=== PATIENT | female | born 1935 | race Caucasian/White ===

== ENCOUNTER 2021-03-27 00:48 | Inpatient (IN) ==
[2021-03-27] MEDS ORDERED: methylPREDNISolone 125 MG/2 ML VIAL IV STA (01:20)
[2021-03-27] MEDS ORDERED: ALBUT/IPRATROP 3MG/0.5MG NEB 3 ML VIAL NEB STA (01:20)
[2021-03-27 03:00] LABS: Albumin Globulin Ratio 1.2 (0.9-2); Albumin Level 3.6 gm/dl (3.4-5.0); BUN Creatinine Ratio 19.5 (10-20); Bilirubin,Total 1.1 mg/dl (0.2-1.0); Est GFR (Non-African American) 40.5 ml/min; Globulin 3.1 gm/dl (2.5-4.0); Magnesium 1.9 mg/dl (1.7-2.4); Total Protein 6.7 gm/dl (6.0-8.3); Troponin I 0.03 ng/ml (0-0.04)
[2021-03-27 03:31] LABS: INR 1.2 (0.9-1.1); Partial Thromboplastin Ratio 1.3; Partial Thromboplastin Time 34.1 Seconds (21.0-31.0); Prothrombin Time 11.8 Seconds (9.0-12.0)
[2021-03-27 03:32] LABS: Hemoglobin 14.5 g/dL (12.0-16.0); Mean Corpuscular Hemoglobin 31.8 pg (25-34); Mean Corpuscular Hgb Conc 33.7 g/dL (32-36); Mean Corpuscular Volume 94.3 fL (80-100); Mean Platelet Volume 12.7 fL (7.4-10.4); Platelet Count 103 K/uL (130-400); RDW Coefficient of Variation 14.7 % (11.5-14.5); RDW Standard Deviation 51.4 fL (36.4-46.3); Red Blood Count 4.56 M/uL (4.2-5.4); White Blood Count 7.48 K/uL (4.8-10.8)
[2021-03-27 03:33] LABS: Immature Granulocytes # (auto) 0.02 K/uL (0.00-0.02); Immature Granulocytes % (auto) 0.3 %; Lymphocytes # (auto) 0.62 K/uL (1.2-3.4); Lymphocytes % (auto) 8.3 %; Monocytes # (auto) 0.62 K/uL (0.11-0.59); Monocytes % (auto) 8.3 %; Neutrophils # (auto) 6.22 K/uL (1.4-6.5); Neutrophils % (auto) 83.1 %; Platelet Estimate Decreased (Normal); RBC Morphology Unremarkable
[2021-03-27] MEDS ORDERED: MAGNESIUM SULFATE / D5W 1 GM/100 ML BAG IV ONE (04:24)
[2021-03-27] MEDS ORDERED: DOXYCYCLINE HYCLATE 100 MG in DEXTROSE 5% 100 ML IV STA (04:52)
[2021-03-27] MEDS ORDERED: SODIUM CHLORIDE 0.9% 1000ML 1,000 ML IV ONE (04:52)
--- NOTE | 2021-03-27 05:05 | History & Physical Report ---
Date of Service March 27, 2021 Assessment & Plan (1) Encephalopathy: Plan: Delirium Possible undiagnosed dementia Multifactorial : Hypoxemic respiratory failure secondary to severe COVID-19 pneumonia with superimposed bacterial infection ARF Rule out UTI Thrombocytopenia, unknown duration Ongoing tobacco abuse Medical telemetry Supplemental O2 Doxycycline for superimposed bacterial infection, nebs as needed Decadron and Remdesivir for severe COVID-19 pneumonia. (Patient daughter would like to confer with patient's first regarding Remdesivir therapy.) Pulmonary consult if without improvement. Check UA, monitor creatinine response to IVF Delirium precautions PT OT eval DVT prophylaxis SCDs RE thrombocytopenia DNR as per patient's prior wishes as per daughter (Ms. Charu Hutton) She requests updates from providers thru [id number]. Text document was generated using Cyl[employer] voice recognition software. It may contain grammatical or spelling errors. Kindly contact undersigned for clarification of any documentation item in question. History of Present Illness Chief Complaint: Increased confusion, shortness of breath as per records Primary Care Provider: NO PCP History obtained from patient, family, and records. Patient is a fair historian. Medical history significant for ongoing tobacco abuse. Patient mentation has been off since September 2020 as per daughter. Patient family suspecting beginning dementia. The last few days, patient more confused than usual. Worsening cough symptoms productive of junky sputum as per patient. Patient denies chest pain, shortness of breath but patient noted to have labored respiration by daughter. Patient weaker than usual as per family. Patient unstable on her feet. Daughter cannot catch up with her. Patient with urinary frequency symptoms without abdominal pain as per daughter. Recent sick COVID-19 contacts at home. Patient has not received COVID-19 vaccination. Has not seen a primary care doctor in decades. O2 sats 80s on room air upon arrival at the ER Solu-Medrol and neb treatment given at the ER. 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 Allergies Allergy/AdvReac Type Severity Reaction Status Date / Time No Known Allergies Allergy Verified 03/27/21 01:15 Home Medications Medication Instructions Recorded Confirmed Type No Known Home Medications 03/27/21 03/27/21 History Past Med/Surg History Medical History (Updated 03/27/21 @ 06:02 by Aramis Gibbs MD) COPD (chronic obstructive pulmonary disease) Tobacco dependence Social History (Updated 03/27/21 @ 05:28 by Makenna Delgadillo MD) Smoking Status: Former smoker packs per day: 2; Current Living Situation: Family Feels Safe at Home: Yes Review of Systems Review of Systems: Could not be reliably obtained secondary to some confusion Physical Exam Physical Exam: GENERAL: Comfortable, oriented to month, slightly hard of hearing, no respiratory distress SKIN: Normal color, warm HEENT: [place] palpebral conjunctivae, no ptosis, dry buccal mucosa, nasal cannula in place NECK : Supple, no tenderness CHEST : Decreased breath sounds, occasional expiratory wheezes, no tenderness HEART : RRR, no obvious murmurs ABDOMEN: no distention, nontender EXTREMITIES : No LE swelling/tenderness, no other conspicuous deformities noted NEUROLOGIC : Coherent, oriented to month, no facial asymmetry, slightly hard of hearing, gait and stance not assessed Results & Data Results & Data ([facility]) Vital Signs (Past 12 Hours) Vital Signs Temp Pulse Pulse Resp BP BP Pulse Ox 03/27/21 03:00 82 18 127/54 L 93 03/27/21 01:39 84 18 93 03/27/21 01:12 93 03/27/21 01:09 88 L 03/27/21 01:03 37.1 C 87 24 125/65 88 L Laboratory Results Laboratory Results WBC 7.48 K/uL (4.8-10.8) 03/27/21 01:40 RBC 4.56 M/uL (4.2-5.4) 03/27/21 01:40 Hgb 14.5 g/dL (12.0-16.0) 03/27/21 01:40 Hct 43.0 % (37-47) 03/27/21 01:40 MCV 94.3 fL (80-100) 03/27/21 01:40 MCH 31.8 pg (25-34) 03/27/21 01:40 MCHC 33.7 g/dL (32-36) 03/27/21 01:40 RDW Std Deviation 51.4 fL (36.4-46.3) H 03/27/21 01:40 RDW Coeff of Selena 14.7 % (11.5-14.5) H 03/27/21 01:40 Plt Count 103 K/uL (130-400) L 03/27/21 01:40 MPV 12.7 fL (7.4-10.4) H 03/27/21 01:40 Immature Gran % (Auto) 0.3 % 03/27/21 01:40 Neut % (Auto) 83.1 % 03/27/21 01:40 Lymph % (Auto) 8.3 % 03/27/21 01:40 [place] % (Auto) 8.3 % 03/27/21 01:40 Eos % (Auto) 0.0 % 03/27/21 01:40 Baso % (Auto) 0.0 % 03/27/21 01:40 Neut # (Auto) 6.22 K/uL (1.4-6.5) 03/27/21 01:40 Lymph # (Auto) 0.62 K/uL (1.2-3.4) L 03/27/21 01:40 [place] # (Auto) 0.62 K/uL (0.11-0.59) H 03/27/21 01:40 Eos # (Auto) 0.00 K/uL (0-0.5) 03/27/21 01:40 Baso # (Auto) 0.00 K/uL (0-0.2) 03/27/21 01:40 Immature Gran # (Auto) 0.02 K/uL (0.00-0.02) 03/27/21 01:40 Platelet Estimate Decreased (Normal) L 03/27/21 01:40 RBC Morphology Unremarkable 03/27/21 01:40 PT 11.8 Seconds (9.0-12.0) 03/27/21 01:50 INR 1.2 (0.9-1.1) H 03/27/21 01:50 APTT 34.1 Seconds (21.0-31.0) H 03/27/21 01:50 PTT Ratio 1.3 03/27/21 01:50 Sodium 134 mmol/L (136-145) L 03/27/21 01:40 Potassium 4.0 mmol/L (3.5-5.1) 03/27/21 01:40 Chloride 98 mmol/L (98-107) 03/27/21 01:40 Carbon Dioxide 26 mmol/L (21-32) 03/27/21 01:40 Anion Gap 10 (3-11) 03/27/21 01:40 BUN 24 mg/dl (6-23) H 03/27/21 01:40 Creatinine 1.23 mg/dl (0.6-1.2) H 03/27/21 01:40 Est Cr Clr Drug Dosing 23.0 ml/min 03/27/21 01:40 Est GFR ( Amer) 47.0 ml/min 03/27/21 01:40 Est GFR (Non-Af Amer) 40.5 ml/min 03/27/21 01:40 BUN/Creatinine Ratio 19.5 (10-20) 03/27/21 01:40 Glucose 105 mg/dl (70-99(Fasting)) H 03/27/21 01:40 Lactate 1.9 mmol/L (0.4-2.0) 03/27/21 03:30 Calcium 9.0 mg/dl (8.5-10.1) 03/27/21 01:40 Magnesium 1.9 mg/dl (1.7-2.4) 03/27/21 01:40 Total Bilirubin 1.1 mg/dl (0.2-1.0) H 03/27/21 01:40 AST 38 U/L (13-39) 03/27/21 01:40 ALT 14 U/L (7-52) 03/27/21 01:40 Alkaline Phosphatase 53 U/L (34-104) 03/27/21 01:40 Troponin I 0.03 ng/ml (0-0.04) 03/27/21 01:40 Total Protein 6.7 gm/dl (6.0-8.3) 03/27/21 01:40 Albumin 3.6 gm/dl (3.4-5.0) 03/27/21 01:40 Globulin 3.1 gm/dl (2.5-4.0) 03/27/21 01:40 Albumin/Globulin Ratio 1.2 (0.9-2) 03/27/21 01:40 Diagnostic Findings Chest x-ray as per my interpretation cardiomegaly, atelectasis CT head pending EKG as per my interpretation : Rate 85, NSR, normal axis, PVCs
--- NOTE | 2021-03-27 05:31 | Emergency Department Note ---
Impression & Plan Hypoxia, COPD (chronic obstructive pulmonary disease), Tobacco dependence ED Provider Note CHIEF COMPLAINT: Weakness, shortness of breath, not eating HISTORY OF PRESENT ILLNESS: This 85-year-old female patient presents to the emergency department with complaints of weakness, shortness of breath and decreased appetite. states she is not Covid vaccinated and he is concerned that she may have lung cancer as she smokes quite a bit. Patient does not see a doctor and never really has. She is not had a fever, vomiting or diarrhea. She does not seem to be confused necessarily but is not responding as she normally would. Family has convinced the patient to come to the hospital th is morning for a "checkup." Patient states she does not know why she is here. Patient does not wear home oxygen. REVIEW OF SYSTEMS: Unable to perform a review of systems secondary to the patient's mental status, history obtained per . ALLERGIES: see below MEDICATIONS: see below PMH: see below SOCIAL HISTORY: see below DDx: Infection, dehydration, metabolic abnormality, hypo/hyperglycemia, electrolyte disturbance, anemia, hypoxia, cardiac sources, intracerebral event, toxicologic, neurologic, as well as other pathologies. PHYSICAL EXAM: Vital signs reviewed. General: Chronically ill-appearing 85-year-old female in no significant distress. HEENT: No scleral icterus, PERRLA, neck supple. Atraumatic. Cardiovascular: Regular rate and rhythm, no extra sounds. Pulmonary: Coarse breath sounds with crackles at the bases right greater than left to auscultation bilaterally, normal work of breathing. On 2 L nasal cannula oxygen Abdomen: Soft, nontender, nondistended, positive bowel sounds. Musculoskeletal: Atraumatic, no peripheral edema. Neurologic: Patient awake alert and follows commands but does not answer complicated questions appropriately. Patient gives deflective answers. Speech is clear Skin: Warm, dry, no rash EMERGENCY DEPARTMENT COURSE/MDM: This patient was evaluated and appeared to be in no significant distress. IV access was obtained and laboratory work was drawn. The patient was placed on the chemical radiation technician and noted to be in normal sinus rhythm. She was placed on nasal cannula oxygen due to room air hypoxia. She was given a DuoNeb treatment and 60 mg of IV Solu-Medrol. Chest x-ray is consistent with COPD with no focal infiltrate noted to my exam. EKG reveals nonspecific ST changes but no ST elevation [place]. Patient has tested positive for COVID-19. Her reiterates that she does not see a physician and has declined in the past. The patient is currently willing to stay in the hospital. I do believe her course will likely become more complex as she is unvaccinated and a heavy smoker. Patient and family are aware of the plan and agreed. Dr. Henry was made aware of the patient's case and will evaluate for further m anagement. MONITORING: An order for cardiac monitoring was placed and the patient is noted to be in a sinus rhythm at 82 beats per minute. RADIOLOGY: COPD, no focal infiltrate EKG: Sinus rhythm with frequent PVCs at 85 bpm. Normal axis, QTC is 430, normal ST segments. No previous for comparison. DISPOSITION: Admission Past Med/Surg History Medical History (Updated 03/27/21 @ 06:02 by Aramis Gibbs MD) COPD (chronic obstructive pulmonary disease) Tobacco dependence Social History (Updated 03/27/21 @ 05:28 by Makenna Delgadillo MD) Smoking Status: Former smoker packs per day: 2; Current Living Situation: Family Feels Safe at Home: Yes Allergies Allergies Allergy/AdvReac Type Severity Reaction Status Date / Time No Known Allergies Allergy Verified 03/27/21 01:15 Home Meds Home Medications Medication Instructions Recorded Confirmed No Known Home Medications 03/27/21 03/27/21 Results & Data (ED) Vital Signs Vital Signs - 24 hr 03/27/21 01:03 03/27/21 01:09 03/27/21 01:12 Temperature 37.1 C Temperature Source Oral Pulse Rate 87 Respiratory Rate 24 Respiratory Effort / Characteristics Respiratory Depth Shallow Respiratory Pattern Blood Pressure 125/65 Blood Pressure Mean 85 Pulse Oximetry 88 L 88 L 93 Oxygen Delivery Method Room Air Room Air Nasal Cannula Oxygen Flow Rate 2 Sepsis Recent Fever Within 48 Hours No Sepsis New/Unexplained Change in Mental Status No Sepsis Action Taken by Nursing No Action Required Oxygen Flow Rate - Titration 2 Pulse Oximetry Post Tiitration 93 03/27/21 01:39 Temperature Temperature Source Pulse Rate 84 Respiratory Rate 18 Respiratory Effort / Characteristics Non-Labored Spontaneous Respiratory Depth Normal Respiratory Pattern Regular Blood Pressure Blood Pressure Mean Pulse Oximetry 93 Oxygen Delivery Method Nasal Cannula Oxygen Flow Rate 2 Sepsis Recent Fever Within 48 Hours Sepsis New/Unexplained Change in Mental Status Sepsis Action Taken by Nursing Oxygen Flow Rate - Titration Pulse Oximetry Post Tiitration Home Medications Current Medication List: was personally reviewed by me Laboratory Data Attestation: I reviewed the patient's lab results. Result diagrams: 03/27/21 01:40 03/27/21 01:40 Lab Results 03/27/21 03/27/21 03/27/21 Range/Units 01:40 01:40 01:42 WBC 7.48 (4.8-10.8) K/uL RBC 4.56 (4.2-5.4) M/uL Hgb 14.5 (12.0-16.0) g/dL Hct 43.0 (37-47) % MCV 94.3 (80-100) fL MCH 31.8 (25-34) pg MCHC 33.7 (32-36) g/dL RDW Std Deviation 51.4 H (36.4-46.3) fL RDW Coeff of Selena 14.7 H (11.5-14.5) % Plt Count 103 L (130-400) K/uL MPV 12.7 H (7.4-10.4) fL Immature Gran % (Auto) 0.3 % Neut % (Auto) 83.1 % Lymph % (Auto) 8.3 % [place] % (Auto) 8.3 % Eos % (Auto) 0.0 % Baso % (Auto) 0.0 % Neut # (Auto) 6.22 (1.4-6.5) K/uL Lymph # (Auto) 0.62 L (1.2-3.4) K/uL [place] # (Auto) 0.62 H (0.11-0.59) K/uL Eos # (Auto) 0.00 (0-0.5) K/uL Baso # (Auto) 0.00 (0-0.2) K/uL Immature Gran # (Auto) 0.02 (0.00-0.02) K/uL Platelet Estimate Decreased L (Normal) RBC Morphology Unremarkable PT (9.0-12.0) Seconds INR (0.9-1.1) APTT (21.0-31.0) Seconds PTT Ratio Sodium 134 L (136-145) mmol/L Potassium 4.0 (3.5-5.1) mmol/L Chloride 98 (98-107) mmol/L Carbon Dioxide 26 (21-32) mmol/L Anion Gap 10 (3-11) BUN 24 H (6-23) mg/dl Creatinine 1.23 H (0.6-1.2) mg/dl Est Cr Clr Drug Dosing 23.0 ml/min Est GFR ( Amer) 47.0 ml/min Est GFR (Non-Af Amer) 40.5 ml/min BUN/Creatinine Ratio 19.5 (10-20) Glucose 105 H (70-99(Fasting)) mg/dl Calcium 9.0 (8.5-10.1) mg/dl Magnesium 1.9 (1.7-2.4) mg/dl Total Bilirubin 1.1 H (0.2-1.0) mg/dl AST 38 (13-39) U/L ALT 14 (7-52) U/L Alkaline Phosphatase 53 (34-104) U/L Troponin I 0.03 (0-0.04) ng/ml Total Protein 6.7 (6.0-8.3) gm/dl Albumin 3.6 (3.4-5.0) gm/dl Globulin 3.1 (2.5-4.0) gm/dl Albumin/Globulin Ratio 1.2 (0.9-2) TSH (0.300-4.500) uIu/ml SARS-CoV-2, RNA, NAAT POSITIVE A* (NEGATIVE) 03/27/21 03/27/21 Range/Units 01:50 01:56 WBC (4.8-10.8) K/uL RBC (4.2-5.4) M/uL Hgb (12.0-16.0) g/dL Hct (37-47) % MCV (80-100) fL MCH (25-34) pg MCHC (32-36) g/dL RDW Std Deviation (36.4-46.3) fL RDW Coeff of Selena (11.5-14.5) % Plt Count (130-400) K/uL MPV (7.4-10.4) fL Immature Gran % (Auto) % Neut % (Auto) % Lymph % (Auto) % [place] % (Auto) % Eos % (Auto) % Baso % (Auto) % Neut # (Auto) (1.4-6.5) K/uL Lymph # (Auto) (1.2-3.4) K/uL [place] # (Auto) (0.11-0.59) K/uL Eos # (Auto) (0-0.5) K/uL Baso # (Auto) (0-0.2) K/uL Immature Gran # (Auto) (0.00-0.02) K/uL Platelet Estimate (Normal) RBC Morphology PT 11.8 (9.0-12.0) Seconds INR 1.2 H (0.9-1.1) APTT 34.1 H (21.0-31.0) Seconds PTT Ratio 1.3 Sodium (136-145) mmol/L Potassium (3.5-5.1) mmol/L Chloride (98-107) mmol/L Carbon Dioxide (21-32) mmol/L Anion Gap (3-11) BUN (6-23) mg/dl Creatinine (0.6-1.2) mg/dl Est Cr Clr Drug Dosing ml/min Est GFR ( Amer) ml/min Est GFR (Non-Af Amer) ml/min BUN/Creatinine Ratio (10-20) Glucose (70-99(Fasting)) mg/dl Calcium (8.5-10.1) mg/dl Magnesium (1.7-2.4) mg/dl Total Bilirubin (0.2-1.0) mg/dl AST (13-39) U/L ALT (7-52) U/L Alkaline Phosphatase (34-104) U/L Troponin I (0-0.04) ng/ml Total Protein (6.0-8.3) gm/dl Albumin (3.4-5.0) gm/dl Globulin (2.5-4.0) gm/dl Albumin/Globulin Ratio (0.9-2) TSH 2.762 (0.300-4.500) uIu/ml SARS-CoV-2, RNA, NAAT (NEGATIVE) Administered Medications Sodium Chloride (Nss 1000ml) 1,000 mls @ 80 mls/hr IV .[id number] ONE Stop: 03/27/21 17:21 Last Admin: 03/27/21 05:56 Dose: 80 mls/hr Documented by: [id number] Discontinued Medications Albuterol (Albut/Ipratrop 3mg/0.5mg Neb 3 Ml Vial) 3 ml NEB NOW STA; Protocol Stop: 03/27/21 01:21 Last Admin: 03/27/21 01:43 Dose: 3 ml Documented by: [id number] Magnesium Sulfate/Dextrose (Magnesium Sulfate / D5w) 1 gm in 100 mls @ 50 mls/hr IV ONE ONE Stop: 03/27/21 06:23 Last Admin: 03/27/21 05:56 Dose: 50 mls/hr Documented by: [id number] Doxycycline Hyclate 100 mg/ (Dextrose) 110 mls @ 50 mls/hr IV NOW STA Stop: 03/27/21 07:03 Last Admin: 03/27/21 07:25 Dose: 50 mls/hr Documented by: [id number] Methylprednisolone (Methylprednisolone 125 Mg/2 Ml Vial) 60 mg IV NOW STA Stop: 03/27/21 01:21 Last Admin: 03/27/21 01:43 Dose: 60 mg Documented by: [id number] Imaging Data My Impression: Test x-ray to my interpretation reveals COPD chronic changes, no focal lung consolidation or failure. Radiologist's Impression: Chest X-Ray 03/27/21 01:04 XR chest 1V portable HISTORY: 85 years-old Female Dyspnea acute shortness of breath COMPARISON: None TECHNIQUE: Portable AP view of the chest FINDINGS: The heart is mildly enlarged. Mitral annular calcifications. Reticular interstitial opacities with ill-defined bilateral airspace opacities, most pronounced in the left lung base and left midlung. 9 mm nodular density of the lateral right midlung. No pneumothorax or large pleural effusion. Blunting of the costophrenic angles may be secondary to atelectasis versus trace effusions. Degenerative changes of the shoulders and spine. IMPRESSION: 1. Reticular interstitial opacities with ill-defined airspace densities, most pronounced in the left lung base and left midlung. Findings are suspicious for an infectious or inflammatory pneumonitis. 2. Cardiomegaly. 3. 9 mm nodular density of the lateral right midlung. Attention at follow-up recommended to exclude a pulmonary nodule. ACT 112: Negative or not required by law. The above report was generated using voice recognition software. It may contain grammatical, syntax or spelling errors. Electronically signed by: Victoriano Black M.D. 03/27/2021 6:36 AM Blood Pressure Blood Pressure Findings: Normal blood pressure Blood Pressure Disposition: did not require urgent referral Discharge Plan Visit Data Chief Complaint: Shortness of Breath/Dyspnea Stated Complaint: SOB,FATIGUE,CONFUSSION ED Provider: Makenna Delgadillo Discharge Problem: Hypoxia, COPD (chronic obstructive pulmonary disease), Tobacco dependence Patient Disposition: Admitted As Inpatient Condition: Good Discharge Problem: COPD (chronic obstructive pulmonary disease) Qualifiers: COPD type: chronic bronchitis Chronic bronchitis type: simple Qualified Code( s): J41.0 - Simple chronic bronchitis
--- NOTE | 2021-03-27 06:37 | XRay Report ---
XR chest 1V portable HISTORY: 85 years-old Female Dyspnea acute shortness of breath COMPARISON: None TECHNIQUE: Portable AP view of the chest FINDINGS: The heart is mildly enlarged. Mitral annular calcifications. Reticular interstitial opacities with il l-defined bilateral airspace opacities, most pronounced in the left lung base and left midlung. 9 mm nodular density of the lateral right midlung. No pneumothorax or large pleural effusion. Blunting of the costophrenic angles may be secondary to atelectasis versus trace effusions. Degenerative changes of the shoulders and spine. IMPRESSION: 1. Reticular interstitial opacities with ill-defined airspace densities, most pronounced in the left lung base and left midlung. Findings are suspicious for an infectious or inflammatory pneumonitis. 2. Cardiomegaly. 3. 9 mm nodular density of the lateral right midlung. Attention at follow-up recommended to exclude a pulmonary nodule. ACT 112: Negative or not required by law. The above report was generated using voice recognition software. It may contain grammatical, syntax o r spelling errors. Electronically signed by: Victoriano Black M.D. 03/27/2021 6:36 AM
[2021-03-27] MEDS ORDERED: ACETAMINOPHEN 325 MG TAB PO PRN (08:14)
[2021-03-27] MEDS ORDERED: PROMETHAZINE HCL 6.25 MG in SODIUM CHLORIDE 0.9% 50 ML IV PRN (08:14)
[2021-03-27] MEDS ORDERED: LEVALBUTEROL 1.25MG/0.5ML NEB INH PRN (08:14)
[2021-03-27] MEDS ORDERED: IPRATROPIUM BROMIDE NEB SOLN 0.02% 2.5 ML VIAL INH PRN (08:14)
[2021-03-27] MEDS ORDERED: HALOPERIDOL LACTATE 5 MG/ML 1 ML VIAL IM PRN (08:14)
[2021-03-27] MEDS ORDERED: XOPENEX/ATROVENT 1.25mg/0.5MG NEB COMBO NEB PRN (08:14)
--- NOTE | 2021-03-27 08:23 | CT Scan Report ---
CT head/brain wo con CLINICAL HISTORY: 85 years-old Female with ams. Acutely altered mental status with memory loss and w eakness TECHNIQUE: Multiple axial CT images of the head were obtained without contrast. A dose lowering tech nique was utilized adhering to the principles of ALARA. CT DOSE: 537.48 mGy.cm COMPARISON: None. FINDINGS: No acute intracranial hemorrhage, midline shift, intracranial mass, hydrocephalus, territorial ischem ia or abnormal extra-axial collection. Age-related involutional changes. Extensive and confluent whit e matter hypodensities. Cerebral vascular calcifications. The calvarium is intact. Mild mucosal thickening of the ethmoid air cells. The mastoid air cells are clear. Unremarkable orbits and soft tissues. IMPRESSION: 1. No acute intracranial abnormality. 2. Age-related involutional changes with extensive and confluent white matter hypodensities suggestiv e of advanced chronic microvascular ischemic disease. ACT 112: Negative or not required by law. The above report was generated using voice recognition software. It may contain grammatical, syntax o r spelling errors. Electronically signed by: Victoriano Black M.D. 03/27/2021 8:22 AM
--- NOTE | 2021-03-27 12:14 | Electrocardiogram Report ---
Test Reason : Blood Pressure : / mmHG Vent. Rate : 085 BPM Atrial Rate : 085 BPM P-R Int : 116 ms QRS Dur : 072 ms QT Int : 362 ms P-R-T Axes : 092 006 029 degrees QTc Int : 430 ms Poor data quality, interpretation may be adversely affected Sinus rhythm with frequent Premature ventricular complexes Otherwise normal ECG No previous ECGs available Confirmed by Son Olea ([id number]) on 03/27/2021 12:14:40 PM Referred By: REFERRED SELF Confirmed By:John Olea
[2021-03-27 12:46] LABS: Appearance Urine Clear (Clear); Bacteria Urine Automated 1+ (Negative); Bilirubin Urine Negative (Negative); Blood Urine Trace (Negative); Color Urine Yellow; Epithelial Cell Urine Auto >30 /lpf (0-5); Glucose Urine UA Negative (Negative); Ketones Urine Negative (Negative); Leukocyte Esterase Urine Negative (Negative); Nitrite Urine Positive (Negative); Protein Urine 1+ (Negative); RBC Urine Automated 0-4 /hpf (0-4); Specific Gravity Urine 1.016 (1.000-1.030); Urobilinogen Urine Negative (Negative)
[2021-03-27] MEDS: BENZONATATE 100 MG CAPSULE PO SCH ×2 (13:55→20:07)
--- NOTE | 2021-03-27 16:52 | Hospitalist Progress Note ---
Date of Service March 27, 2021 Assessment & Plan (1) Encephalopathy: Plan: Acute metabolic encephalopathy Possible undiagnosed dementia Delirium in setting of acute infection - CT Head:No acute intracranial abnormality. 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 Reorient frequently Acute hypoxic respiratory failure COVID-19 pneumonia --CXR:Reticular interstitial opacities with ill-defined airspace densities, most pronounced in the left lung base and left midlung. Findings are suspicious for an infectious or inflammatory pneumonitis. Cardiomegaly. 3. 9 mm nodular density of the lateral right midlung. Attention at follow-up recommended to exclude a pulmonary nodule. --Continue dexamethasone Patient/Patient's family requested no Remdesivir given decreased creatinine clearance (Discussed risks and benefits) Doxycycline for possible bacterial infection Check CRP, procalcitonin tomorrow Continue supplemental oxygen as needed Monitor volume status Encouraged to prone Pulmonary hygiene with incentive spirometry, flutter valve Abnormal urinalysis Rule out UTI Empirically started on Rocephin Urine culture pending Possible acute kidney injury Unclear baseline creatinine Received gentle IV fluids Monitor renal function Thrombocytopenia Monitor cbc DVT Px: Heparin SQ Monitor thrombocytopenia Code Status DNR/DNI Admission and Anticipated Discharge Date Admission Date: March 27, 2021 Subjective Patient is seen and examined at bedside Poor appetite today Reports minimal cough Currently on 2 L supplemental oxygen Poor historian, significant hearing impairment Offers no other complaints Review of Systems Review of Systems: All systems reviewed & are unremarkable except as noted in Subjective Physical Exam Physical Exam: Physical Exam: Vitals signs as noted above General Appearance:Thin, frail, no apparent distress Head: normocephalic, Atraumatic Eyes: normal inspection, EOMI Neck: supple, Trachea midline Respiratory/Chest: Decreased breath sounds, Basal Crackles Cardiovascular: S1, S2, No murmur Abdomen/GI:Soft, Non tender, Bowel sounds present Extremities/Musculoskeletal:normal inspection, no edema Neurologic/Psych:Alert, awake, oriented to person, grossly no focal neurological deficits, +hearing impairment Skin: normal color, warm Results & Data Results & Data ([facility]) Vital Signs (Past 12 Hours) Vital Signs Pulse Resp BP Pulse Ox 03/27/21 12:00 70 18 113/56 L 94 03/27/21 08:00 80 26 H 121/69 93 03/27/21 07:00 87 18 122/60 94 03/27/21 05:00 84 18 121/66 93 Laboratory Results Short CBC 03/27/21 Range/Units 01:40 WBC 7.48 (4.8-10.8) K/uL Hgb 14.5 (12.0-16.0) g/dL Hct 43.0 (37-47) % Plt Count 103 L (130-400) K/uL BMP 03/27/21 01:40 Sodium 134 L Potassium 4.0 Chloride 98 Carbon Dioxide 26 BUN 24 H Creatinine 1.23 H Glucose 105 H Calcium 9.0 Cardiac Enzymes 03/27/21 Range/Units 01:40 Troponin I 0.03 (0-0.04) ng/ml Liver Function 03/27/21 Range/Units 01:40 Total Bilirubin 1.1 H (0.2-1.0) mg/dl AST 38 (13-39) U/L ALT 14 (7-52) U/L Alkaline Phosphatase 53 (34-104) U/L Albumin 3.6 (3.4-5.0) gm/dl Urine 03/27/21 Range/Units 12:31 Urine Color Yellow Urine Appearance Clear (Clear) Urine pH 5.0 (4.5-7.5) Ur Specific Concrete 1.016 (1.000-1.030) Urine Protein 1+ H (Negative) Urine Glucose (UA) Negative (Negative)
[2021-03-27] MEDS: cefTRIAXone SODIUM 1,000 MG in DEXTROSE 5% 50 ML IV SCH (18:21)
[2021-03-27] MEDS: DOXYCYCLINE HYCLATE 100 MG CAP PO SCH (20:08)
[2021-03-27] MEDS: HEPARIN SOD 5,000 UNIT/0.5 ML VIAL SQ SCH (20:08)
[2021-03-28 08:03] LABS: Hematocrit (blood only) 40.7 % (37-47); Hemoglobin 13.4 g/dL (12.0-16.0); Immature Granulocytes # (auto) 0.03 K/uL (0.00-0.02); Immature Granulocytes % (auto) 0.3 %; Lymphocytes # (auto) 0.51 K/uL (1.2-3.4); Mean Corpuscular Hemoglobin 30.9 pg (25-34); Mean Corpuscular Hgb Conc 32.9 g/dL (32-36); Mean Platelet Volume 13.1 fL (7.4-10.4); Monocytes # (auto) 0.74 K/uL (0.11-0.59); Monocytes % (auto) 7.2 %; Neutrophils # (auto) 8.96 K/uL (1.4-6.5); Neutrophils % (auto) 87.5 %; Platelet Count 152 K/uL (130-400); RDW Coefficient of Variation 14.9 % (11.5-14.5); RDW Standard Deviation 52.1 fL (36.4-46.3); Red Blood Count 4.33 M/uL (4.2-5.4); White Blood Count 10.24 K/uL (4.8-10.8)
[2021-03-28 08:20] LABS: BUN Creatinine Ratio 28.6 (10-20); C Reactive Protein 16.42 mg/dl (0-0.5); Calcium 8.7 mg/dl (8.5-10.1); Creatinine Clr Calc Pharmacy 29.7 ml/min; Est GFR (African American) 61.8 ml/min; Est GFR (Non-African American) 53.3 ml/min
[2021-03-28] MEDS: dexAMETHasone 6 MG in SYRINGE 0 ML IV SCH (10:05)
[2021-03-28] MEDS: BENZONATATE 100 MG CAPSULE PO SCH ×3 (10:06→20:34)
[2021-03-28] MEDS: DOXYCYCLINE HYCLATE 100 MG CAP PO SCH ×2 (10:07→20:28)
[2021-03-28] MEDS: HEPARIN SOD 5,000 UNIT/0.5 ML VIAL SQ SCH ×2 (10:07→20:31)
--- NOTE | 2021-03-28 16:03 | Hospitalist Progress Note ---
Date of Service March 28, 2021 Assessment & Plan (1) Encephalopathy: Plan: Acute metabolic encephalopathy Possible undiagnosed dementia Delirium in setting of acute infection - CT Head:No acute intracranial abnormality. 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 Reorient frequently Mental status seem to be slowly improving Acute hypoxic respiratory failure COVID-19 pneumonia --CXR:Reticular interstitial opacities with ill-defined airspace densities, most pronounced in the left lung base and left midlung. Findings are suspicious for an infectious or inflammatory pneumonitis. Cardiomegaly. 3. 9 mm nodular density of the lateral right midlung. Attention at follow-up recommended to exclude a pulmonary nodule. --Continue dexamethasone Patient/Patient's family requested no Remdesivir given decreased creatinine clearance (Discussed risks and benefits) On Rocephin, Doxycycline for possible bacterial infection CRP 16.4 Procalcitonin 2.6 Blood Cx: Negative to date Continue supplemental oxygen as needed Monitor volume status Encouraged to prone Pulmonary hygiene with incentive spirometry, flutter valve Continue on 3 L supplemental oxygen Abnormal urinalysis Rule out UTI On Rocephin empirically Urine culture pending Possible acute kidney injury Unclear baseline creatinine Received gentle IV fluids Monitor renal function Thrombocytopenia Platelet count improved Monitor CBC DVT Px: Heparin SQ Code Status DNR/DNI Admission and Anticipated Discharge Date Admission Date: March 27, 2021 Subjective Patient is seen and examined at bedside Sitting in chair during my encounter States feeling better today No significant cough Currently on 3 L supplemental oxygen Denies any chest pain, shortness of breath, dizziness, nausea, abdominal pain Review of Systems Review of Systems: All systems reviewed & are unremarkable except as noted in Subjective Physical Exam Physical Exam: Physical Exam: Vitals signs as noted above General Appearance:Thin, frail, no apparent distress Head: normocephalic, Atraumatic Eyes: normal inspection, EOMI Neck: supple, Trachea midline Respiratory/Chest: Decreased breath sounds, B/L scattered Crackles Cardiovascular: S1, S2, No murmur Abdomen/GI:Soft, Non tender, Bowel sounds present Extremities/Musculoskeletal:normal inspection, no edema Neurologic/Psych:Alert, awake, oriented to person, grossly no focal neurological deficits, +hearing impairment Skin: normal color, warm Results & Data Results & Data ([facility]) Vital Signs (Past 12 Hours) Vital Signs Temp Pulse Resp BP BP Pulse Ox Pulse Ox 01/28/22 15:46 36.6 C 68 20 104/60 94 03/28/21 13:35 93 03/28/21 13:17 36.7 C 74 20 109/60 96 03/28/21 13:10 94 03/28/21 08:37 36.7 C 79 20 102/58 L 98 Pulse Ox Pulse Ox 03/28/21 15:46 03/28/21 13:35 03/28/21 13:17 03/28/21 13:10 94 91 03/28/21 08:37 Laboratory Results Short CBC 03/28/21 Range/Units 05:44 WBC 10.24 (4.8-10.8) K/uL Hgb 13.4 (12.0-16.0) g/dL Hct 40.7 (37-47) % Plt Count 152 (130-400) K/uL BMP 03/28/21 05:44 Sodium 136 Potassium 4.0 Chloride 102 Carbon Dioxide 25 BUN 28 H Creatinine 0.98 Glucose 118 H Calcium 8.7
[2021-03-28] MEDS: cefTRIAXone SODIUM 1,000 MG in DEXTROSE 5% 50 ML IV SCH (16:28)
[2021-03-29 08:28] LABS: BUN Creatinine Ratio 38.6 (10-20); Calcium 8.5 mg/dl (8.5-10.1); Est GFR (African American) 70.4 ml/min; Est GFR (Non-African American) 60.8 ml/min; Potassium 4.2 mmol/L (3.5-5.1)
[2021-03-29] MEDS: DOXYCYCLINE HYCLATE 100 MG CAP PO SCH ×2 (09:29→20:16)
[2021-03-29] MEDS: HEPARIN SOD 5,000 UNIT/0.5 ML VIAL SQ SCH ×2 (09:29→20:18)
[2021-03-29] MEDS: dexAMETHasone 6 MG in SYRINGE 0 ML IV SCH (09:30)
[2021-03-29] MEDS: BENZONATATE 100 MG CAPSULE PO SCH ×3 (12:04→20:15)
--- NOTE | 2021-03-29 14:43 | Hospitalist Progress Note ---
Date of Service March 29, 2021 Assessment & Plan (1) Encephalopathy: Plan: Acute metabolic encephalopathy Possible undiagnosed dementia Delirium in setting of acute infection - CT Head:No acute intracranial abnormality. 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 Reorient frequently Mental status seem to be back to baseline Acute hypoxic respiratory failure COVID-19 pneumonia --CXR:Reticular interstitial opacities with ill-defined airspace densities, most pronounced in the left lung base and left midlung. Findings are suspicious for an infectious or inflammatory pneumonitis. Cardiomegaly. 3. 9 mm nodular density of the lateral right midlung. Attention at follow-up recommended to exclude a pulmonary nodule. --Continue dexamethasone Patient/Patient's family requested no Remdesivir given decreased creatinine clearance (Discussed risks and benefits) On Rocephin, Doxycycline for possible bacterial infection CRP 16.4 Procalcitonin 2.6 Blood Cx: Negative to date Monitor volume status Encouraged to prone Pulmonary hygiene with incentive spirometry, flutter valve Currently on on 3 L supplemental oxygen Wean off of supplemental Oxygen as able Abnormal urinalysis UTI ruled on On Rocephin empirically as above Urine culture negative Acute kidney injury Cr:1.2>>0.88 Received gentle IV fluids Monitor renal function Thrombocytopenia Platelet count improved Monitor CBC DVT Px: Heparin SQ Code Status DNR/DNI Admission and Anticipated Discharge Date Admission Date: March 27, 2021 Subjective Patient is seen and examined at bedside Offers no complaints today Very poor appetite Currently on 3 L supplemental oxygen Minimal cough as per patient Denies any chest pain, shortness of breath, dizziness, nausea, abdominal pain Review of Systems Review of Systems: All systems reviewed & are unremarkable except as noted in Subjective Physical Exam Physical Exam: Physical Exam: Vitals signs as noted above General Appearance:Thin, frail, no apparent distress Head: normocephalic, Atraumatic Eyes: normal inspection, EOMI Neck: supple, Trachea midline Respiratory/Chest: Decreased breath sounds, Minimal Crackles Cardiovascular: S1, S2, No murmur Abdomen/GI:Soft, Non tender, Bowel sounds present Extremities/Musculoskeletal:normal inspection, no edema Neurologic/Psych:Alert, awake, oriented to person, grossly no focal neurological deficits, +hearing impairment Skin: normal color, warm Results & Data Results & Data ([facility]) Vital Signs (Past 12 Hours) Vital Signs Temp Pulse Resp BP Pulse Ox 03/29/21 11:56 36.8 C 61 18 89/51 L 98 03/29/21 09:39 37 C 67 18 105/77 89 L 03/29/21 03:03 36.9 C 69 20 104/57 L 91 Laboratory Results [facility] 03/29/21 06:22 Sodium 137 Potassium 4.2 Chloride 103 Carbon Dioxide 24 BUN 34 H Creatinine 0.88 Glucose 115 H Calcium 8.5
[2021-03-29] MEDS: cefTRIAXone SODIUM 1,000 MG in DEXTROSE 5% 50 ML IV SCH (17:07)
[2021-03-30 07:11] LABS: BUN Creatinine Ratio 29.3 (10-20); Calcium 8.9 mg/dl (8.5-10.1); Est GFR (African American) 61.1 ml/min; Est GFR (Non-African American) 52.7 ml/min; Potassium 4.6 mmol/L (3.5-5.1)
[2021-03-30 07:27] LABS: Hematocrit (blood only) 43.1 % (37-47); Hemoglobin 14.5 g/dL (12.0-16.0); Mean Corpuscular Hemoglobin 31.5 pg (25-34); Mean Corpuscular Hgb Conc 33.6 g/dL (32-36); Mean Corpuscular Volume 93.7 fL (80-100); Mean Platelet Volume 11.9 fL (7.4-10.4); Platelet Count 248 K/uL (130-400); RDW Coefficient of Variation 14.9 % (11.5-14.5); RDW Standard Deviation 50.4 fL (36.4-46.3); White Blood Count 9.31 K/uL (4.8-10.8)
[2021-03-30] MEDS: BENZONATATE 100 MG CAPSULE PO SCH ×3 (08:18→20:32)
[2021-03-30] MEDS: dexAMETHasone 6 MG in SYRINGE 0 ML IV SCH (08:18)
[2021-03-30] MEDS: DOXYCYCLINE HYCLATE 100 MG CAP PO SCH ×2 (08:18→20:32)
[2021-03-30] MEDS: HEPARIN SOD 5,000 UNIT/0.5 ML VIAL SQ SCH ×2 (08:18→20:32)
--- NOTE | 2021-03-30 16:07 | Hospitalist Progress Note ---
Date of Service March 30, 2021 Assessment & Plan (1) Encephalopathy: Plan: Acute metabolic encephalopathy Possible undiagnosed dementia Delirium in setting of acute infection - CT Head:No acute intracranial abnormality. 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 Reorient frequently Mental status back to baseline Acute hypoxic respiratory failure COVID-19 pneumonia --CXR:Reticular interstitial opacities with ill-defined airspace densities, most pronounced in the left lung base and left midlung. Findings are suspicious for an infectious or inflammatory pneumonitis. Cardiomegaly. 3. 9 mm nodular density of the lateral right midlung. Attention at follow-up recommended to exclude a pulmonary nodule. --Continue dexamethasone Patient/Patient's family requested no Remdesivir given decreased creatinine clearance (Discussed risks and benefits) On Rocephin, Doxycycline for possible bacterial infection CRP 16.4 Procalcitonin 2.6 Blood Cx: Negative to date Monitor volume status Encouraged to prone Pulmonary hygiene with incentive spirometry, flutter valve Currently on on 2L supplemental oxygen Wean off of supplemental Oxygen as able Recheck inflammatory markers tomorrow Abnormal urinalysis UTI ruled on On Rocephin empirically as above Urine culture negative Acute kidney injury Cr:1.2>>0.99 Received gentle IV fluids Monitor renal function Thrombocytopenia Platelet count improved Monitor CBC DVT Px: Heparin SQ Code Status DNR/DNI Disposition Needs PT OT prior to discharge Admission and Anticipated Discharge Date Admission Date: March 27, 2021 Subjective Patient is seen and examined at bedside Not motivated Poor oral intake Admits to having cough Eager to get discharged Currently on 2 L supplemental oxygen Denies any chest pain, shortness of breath, dizziness, nausea, abdominal pain Review of Systems Review of Systems: All systems reviewed & are unremarkable except as noted in Subjective Physical Exam Physical Exam: Physical Exam: Vitals signs as noted above General Appearance:Thin, frail, no apparent distress Head: normocephalic, Atraumatic Eyes: normal inspection, EOMI Neck: supple, Trachea midline Respiratory/Chest: Decreased breath sounds, Minimal basal Crackles Cardiovascular: S1, S2, No murmur Abdomen/GI:Soft, Non tender, Bowel sounds present Extremities/Musculoskeletal:normal inspection, no edema Neurologic/Psych:Alert, awake, oriented to person, grossly no focal neurological deficits, +hearing impairment Skin: normal color, warm Results & Data Results & Data ([place]) Vital Signs (Past 12 Hours) Vital Signs Temp Pulse Resp BP BP Pulse Ox 03/30/21 15:30 36.8 C 72 20 104/56 L 95 03/30/21 12:14 37.3 C 69 17 111/58 L 91 03/30/21 08:29 37 C 76 16 117/70 91 Laboratory Results Short CBC 03/30/21 Range/Units 05:51 WBC 9.31 (4.8-10.8) K/uL Hgb 14.5 (12.0-16.0) g/dL Hct 43.1 (37-47) % Plt Count 248 (130-400) K/uL BMP 03/30/21 05:51 Sodium 133 L Potassium 4.6 Chloride 98 Carbon Dioxide 26 BUN 29 H Creatinine 0.99 Glucose 82 Calcium 8.9
[2021-03-30] MEDS: cefTRIAXone SODIUM 1,000 MG in DEXTROSE 5% 50 ML IV SCH (16:45)
[2021-03-31 06:50] LABS: BUN Creatinine Ratio 30.2 (10-20); C Reactive Protein 8.82 mg/dl (0-0.5); Calcium 8.8 mg/dl (8.5-10.1); Creatinine Clr Calc Pharmacy 29.9 ml/min; Est GFR (African American) 63.4 ml/min; Est GFR (Non-African American) 54.7 ml/min; Potassium 4.7 mmol/L (3.5-5.1)
[2021-03-31] MEDS: HEPARIN SOD 5,000 UNIT/0.5 ML VIAL SQ SCH ×2 (08:26→20:20)
[2021-03-31] MEDS: dexAMETHasone 6 MG in SYRINGE 0 ML IV SCH (08:26)
[2021-03-31] MEDS: DOXYCYCLINE HYCLATE 100 MG CAP PO SCH ×2 (08:26→20:21)
[2021-03-31] MEDS: BENZONATATE 100 MG CAPSULE PO SCH ×3 (08:26→20:20)
[2021-03-31] MEDS: cefTRIAXone SODIUM 1,000 MG in DEXTROSE 5% 50 ML IV SCH (17:02)
--- NOTE | 2021-03-31 17:15 | Hospitalist Progress Note ---
Date of Service March 31, 2021 Assessment & Plan (1) Encephalopathy: Plan: Acute metabolic encephalopathy Possible undiagnosed dementia Delirium in setting of acute infection - CT Head:No acute intracranial abnormality. 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 Reorient frequently Mental status back to baseline Acute hypoxic respiratory failure COVID-19 pneumonia --CXR:Reticular interstitial opacities with ill-defined airspace densities, most pronounced in the left lung base and left midlung. Findings are suspicious for an infectious or inflammatory pneumonitis. Cardiomegaly. 3. 9 mm nodular density of the lateral right midlung. Attention at follow-up recommended to exclude a pulmonary nodule. --Continue dexamethasone Patient/Patient's family requested no Remdesivir given decreased creatinine clearance (Discussed risks and benefits) On Rocephin, Doxycycline for possible bacterial infection CRP 16.4>8.8 Procalcitonin 2.6>0.58 Blood Cx: Negative to date Monitor volume status Encouraged to prone Pulmonary hygiene with incentive spirometry, flutter valve Currently on on 3L supplemental oxygen Wean off of supplemental Oxygen as able Will need 2 step prior to discharge Abnormal urinalysis UTI ruled out On Rocephin empirically as above Urine culture negative Acute kidney injury Cr:1.2>>0.96 Received gentle IV fluids Monitor renal function Thrombocytopenia Platelet count improved Monitor CBC DVT Px: Heparin SQ Code Status DNR/DNI Disposition Home with Admission and Anticipated Discharge Date Admission Date: March 27, 2021 Subjective Patient is seen and examined at bedside Offers no complaints Currently on 3 L supplemental oxygen Updated patient's daughter over the phone Still has minimal cough Denies any chest pain, shortness of breath, dizziness, nausea, abdominal pain Review of Systems Review of Systems: All systems reviewed & are unremarkable except as noted in Subjective Physical Exam Physical Exam: Physical Exam: Vitals signs as noted above General Appearance:Thin, frail, no apparent distress Head: normocephalic, Atraumatic Eyes: normal inspection, EOMI Neck: supple, Trachea midline Respiratory/Chest: Decreased breath sounds, CTA Cardiovascular: S1, S2, No murmur Abdomen/GI:Soft, Non tender, Bowel sounds present Extremities/Musculoskeletal:normal inspection, no edema Neurologic/Psych:Alert, awake, oriented to person, grossly no focal neurological deficits, +hearing impairment Skin: normal color, warm Results & Data Results & Data ([facility]) Vital Signs (Past 12 Hours) Vital Signs Temp Pulse Pulse Resp BP Pulse Ox 03/31/21 15:59 94 03/31/21 15:45 36.6 C 66 18 105/66 92 03/31/21 11:10 36.5 C 78 19 115/75 94 03/31/21 09:24 71 03/31/21 07:31 37.0 C 80 19 114/66 90 Laboratory Results [facility] 03/31/21 05:48 Sodium 135 L Potassium 4.7 Chloride 98 Carbon Dioxide 29 BUN 29 H Creatinine 0.96 Glucose 94 Calcium 8.8
[2021-04-01] MEDS: ENOXAPARIN INJ 30 MG/0.3 ML SYR SQ SCH (08:45)
[2021-04-01] MEDS: BENZONATATE 100 MG CAPSULE PO SCH ×3 (08:45→20:52)
[2021-04-01] MEDS: dexAMETHasone 6 MG in SYRINGE 0 ML IV SCH (08:45)
[2021-04-01] MEDS: DOXYCYCLINE HYCLATE 100 MG CAP PO SCH ×2 (08:45→20:49)
[2021-04-01] MEDS ORDERED: ENOXAPARIN INJ 40 MG/0.4 ML SYR SQ SCH (09:00)
--- NOTE | 2021-04-01 17:00 | Hospitalist Progress Note ---
Date of Service April 01, 2021 Assessment & Plan (1) Encephalopathy: Plan: Acute metabolic encephalopathy Possible undiagnosed dementia Delirium in setting of acute infection - CT Head:No acute intracranial abnormality. 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 Reorient frequently Mental status back to baseline Acute hypoxic respiratory failure COVID-19 pneumonia --CXR:Reticular interstitial opacities with ill-defined airspace densities, most pronounced in the left lung base and left midlung. Findings are suspicious for an infectious or inflammatory pneumonitis. Cardiomegaly. 3. 9 mm nodular density of the lateral right midlung. Attention at follow-up recommended to exclude a pulmonary nodule. --Continue dexamethasone Patient/Patient's family requested no Remdesivir given decreased creatinine clearance (Discussed risks and benefits) On Rocephin, Doxycycline for possible bacterial infection CRP 16.4>8.8 Procalcitonin 2.6>0.58 Blood Cx: Negative to date Monitor volume status Encouraged to prone Pulmonary hygiene with incentive spirometry, flutter valve Currently on on 3L supplemental oxygen Needs 2 step prior to discharge Plan to discharge in 1 to 2 days if remains stable Recheck inflammatory markers tomorrow Abnormal urinalysis UTI ruled out On Rocephin empirically as above Urine culture negative Acute kidney injury Cr:1.2>>0.96 Received gentle IV fluids Monitor renal function Thrombocytopenia Platelet count improved Monitor CBC DVT Px: Heparin SQ Code Status DNR/DNI Disposition Home with Admission and Anticipated Discharge Date Admission Date: March 27, 2021 Subjective Patient is seen and examined at bedside Sitting in chair during my encounter States having minimal cough Otherwise no complaints Eager to get discharged Currently on 3 L supplemental oxygen Denies any chest pain, shortness of breath, dizziness, nausea, abdominal pain Review of Systems 2 Review of Systems: All systems reviewed & are unremarkable except as noted in Subjective Physical Exam Physical Exam: Physical Exam: Vitals signs as noted above General Appearance:Thin, frail, no apparent distress Head: normocephalic, Atraumatic Eyes: normal inspection, EOMI Neck: supple, Trachea midline Respiratory/Chest: Decreased breath sounds, CTA Cardiovascular: S1, S2, No murmur Abdomen/GI:Soft, Non tender, Bowel sounds present Extremities/Musculoskeletal:normal inspection, no edema Neurologic/Psych:Alert, awake, oriented to person, grossly no focal neurological deficits, +hearing impairment Skin: normal color, warm Results & Data Results & Data ([facility]) Vital Signs (Past 12 Hours) Vital Signs Temp Pulse Pulse Resp BP Pulse Ox 04/01/21 16:36 95 04/01/21 11:41 36.5 C 70 18 94/57 L 91 04/01/21 09:00 61 04/01/21 07:27 36.5 C 62 18 115/74 99 04/01/21 05:31 36.7 C 61 18 107/71 91
[2021-04-02 07:05] LABS: Hematocrit (blood only) 41.9 % (37-47); Mean Corpuscular Hemoglobin 31.3 pg (25-34); Mean Corpuscular Hgb Conc 33.4 g/dL (32-36); Mean Corpuscular Volume 93.7 fL (80-100); Mean Platelet Volume 10.9 fL (7.4-10.4); Platelet Count 215 K/uL (130-400); RDW Coefficient of Variation 14.9 % (11.5-14.5); Red Blood Count 4.47 M/uL (4.2-5.4); White Blood Count 7.08 K/uL (4.8-10.8)
--- NOTE | 2021-04-02 07:28 | XRay Report ---
XR chest 1V portable CLINICAL HISTORY: covid. Follow-up airspace opacities. COMPARISON STUDY: 03/27/2021 TECHNIQUE: 1 view of the chest FINDINGS: Single frontal view of the chest demonstrates the cardiomediastinal silhouette to be within normal li mits. There is hyperinflation of the lungs with attenuation of the pulmonary vasculature peripherally characteristic of underlying chronic obstructive pulmonary disease. There is again prominence of the interstitial markings with significant interval improvement of airspace opacities particularly on th e left. No confluent alveolar opacities are identified. There is no evidence for pleural effusion. Th ere is no evidence for vascular congestion. There is no acute osseous pathology. IMPRESSION: Evidence for underlying COPD with interval improvement of airspace opacities previously i dentified on the left. Mild prominence of the interstitial markings is again seen which appears chron ic in nature. No definite pulmonary nodule is identified. ACT 112: Negative or not required by law. Electronically signed by: Nico Mckeon M.D. 04/02/2021 7:27 AM
[2021-04-02 07:29] LABS: BUN Creatinine Ratio 45.2 (10-20); C Reactive Protein 3.68 mg/dl (0-0.5); Calcium 8.5 mg/dl (8.5-10.1); Creatinine Clr Calc Pharmacy 40.1 ml/min; Est GFR (African American) 88.3 ml/min; Est GFR (Non-African American) 76.2 ml/min; Potassium 4.5 mmol/L (3.5-5.1)
[2021-04-02] MEDS: DOXYCYCLINE HYCLATE 100 MG CAP PO SCH (08:23)
[2021-04-02] MEDS: ENOXAPARIN INJ 30 MG/0.3 ML SYR SQ SCH (08:23)
[2021-04-02] MEDS: dexAMETHasone 6 MG in SYRINGE 0 ML IV SCH (08:28)
[2021-04-02] MEDS: BENZONATATE 100 MG CAPSULE PO SCH ×2 (08:28→15:14)
--- NOTE | 2021-04-02 13:25 | Hospitalist Progress Note ---
Date of Service April 02, 2021 Assessment & Plan (1) Encephalopathy: Plan: Acute metabolic encephalopathy Possible undiagnosed dementia Delirium in setting of acute infection, suspected UTI and ceftriaxone was initiated - CT Head:No acute intracranial abnormality. 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 Reorient frequently Mental status back to baseline Remains stable Acute hypoxic respiratory failure COVID-19 pneumonia --CXR:Reticular interstitial opacities with ill-defined airspace densities, most pronounced in the left lung base and left midlung. Findings are suspicious for an infectious or inflammatory pneumonitis. Cardiomegaly. 3. 9 mm nodular density of the lateral right midlung. Attention at follow-up recommended to exclude a pulmonary nodule. --Continue dexamethasone Patient/Patient's family requested no Remdesivir given decreased creatinine clearance (Discussed risks and benefits) On Rocephin, Doxycycline for possible bacterial infection CRP 16.4>8.8 Procalcitonin 2.6>0.58 Blood Cx: Negative to date Encouraged to prone Pulmonary hygiene with incentive spirometry, flutter valve Required up to 3 L of oxygen to maintain saturation but has been saturating on room air as of 04-22 She has been moving around in the room without any dizziness and/or unsteadiness She will have 2 step O2 saturation test and possible discharge this afternoon Abnormal urinalysis UTI ruled out On Rocephin empirically as above Urine culture negative -ceftriaxone has been discontinued Acute kidney injury Cr:1.2>>0.96 Received gentle IV fluids Renal function has been normalized Thrombocytopenia Platelet count improved Monitor CBC-resolved DVT Px: Heparin SQ Code Status DNR/DNI Disposition Home with Likely discharge this afternoon Admission and Anticipated Discharge Date Admission Date: March 27, 2021 Subjective 04/02/2021 The patient was seen and examined in telemetry unit and in the COVID room She has been feeling much better, remains generally weak but does not require any oxygen to maintain saturation She wants to go home Review of Systems Review of Systems: All systems reviewed and are unremarkable except as noted below Musculoskeletal: Generally weak but does not have any acute arthritis involving any joint Physical Exam Physical Exam: Lying in bed comfortably Constitutional: + thin; not ill appearing Eyes: PERRL, conjunctivae normal, anicteric sclerae ENMT: external ear and nose normal, oropharynx normal Neck: trachea midline, no thyromegaly Respiratory: no respiratory distress Auscultation: + diminished lung sounds; no crackles Cardiovascular: Rate/Rhythm: regular rate and regular rhythm; not tachycardic Heart Sounds: normal S1 and normal S2; no murmur Extremities: no edema Gastrointestinal (Abdomen): Inspection/Auscultation: abdomen not distended Percussion/Palpation: abdomen soft; abdomen nontender Musculoskeletal: No acute arthritis in any joint Neurologic: Alert, awake and oriented x3. Generally weak but no focal neuro deficit Results & Data Results & Data ([facility]) Vital Signs (Past 12 Hours) Vital Signs Temp Pulse Pulse Pulse Resp BP Pulse Ox 04/02/21 12:28 36.5 C 64 18 135/60 90 04/02/21 08:21 36.3 C L 65 118/62 04/02/21 08:00 61 04/02/21 04:00 36.3 C L 56 L 16 111/67 92 Laboratory Results Short CBC 04/02/21 Range/Units 06:15 WBC 7.08 (4.8-10.8) K/uL Hgb 14.0 (12.0-16.0) g/dL Hct 41.9 (37-47) % Plt Count 215 (130-400) K/uL BMP 04/02/21 06:15 Sodium 135 L Potassium 4.5 Chloride 102 Carbon Dioxide 26 BUN 33 H Creatinine 0.73 Glucose 118 H Calcium 8.5 Medications Administered Current Inpatient Medications Acetaminophen (Acetaminophen 325 Mg Tab) 650 mg PO Q4H PRN PRN Reason: Pain or Fever Stop: 04/26/21 08:13 Benzonatate (Benzonatate 100 Mg Capsule) 100 mg PO TID [facility] Stop: 04/26/21 13:59 Last Admin: 04/02/21 08:28 Dose: 100 mg Documented by: Doxycycline Hyclate (Doxycycline Hyclate 100 Mg Cap) 100 mg PO BID MARIELLE Stop: 04/03/21 08:59 Last Admin: 04/02/21 08:23 Dose: 100 mg Documented by: Enoxaparin Sodium (Enoxaparin Inj 30 Mg/0.3 Ml Syr) 30 mg SQ QAM MARIELLE Stop: 05/01/21 08:59 Last Admin: 04/02/21 08:23 Dose: 30 mg Documented by: Haloperidol Lactate (Haloperidol Lactate 5 Mg/Ml 1 Ml Vial) 2 mg IM Q2H PRN PRN Reason: Agitation Stop: 04/26/21 08:13 Promethazine HCl 6.25 mg/ (Sodium Chloride) 50.25 mls @ 201 mls/hr IV Q6H PRN PRN Reason: Nausea And Vomiting Stop: 04/26/21 08:13 Dexamethasone 6 mg/ Syringe 1.5 mls @ 1 mls/min IV DAILY MARIELLE Stop: 04/07/21 08:59 Last Admin: 04/02/21 08:28 Dose: 1 mls/min Documented by: Ipratropium [place] (Ipratropium [place] Neb Soln 0.02% 2.5 Ml Vial) 0.5 mg INH Q4H PRN PRN Reason: Shortness Of Breath Or Wheezing Stop: 04/26/21 08:13 Levalbuterol HCl (Levalbuterol 1.25mg/0.5ml Neb) 1.25 mg INH Q4H PRN PRN Reason: Shortness Of Breath Or Wheezing Stop: 04/26/21 08:13
--- NOTE | 2021-04-03 07:43 | Discharge Summary ---
Date of Service April 03, 2021 Admission HPI Per Admitting Provider History obtained from patient, family, and records. Patient is a fair historian. Medical history significant for ongoing tobacco abuse. Patient mentation has been off since September 2020 as per daughter. Patient family suspecting beginning dementia. The last few days, patient more confused than usual. Worsening cough symptoms productive of junky sputum as per patient. Patient denies chest pain, shortness of breath but patient noted to have labored respiration by daughter. Patient weaker than usual as per family. Patient unstable on her feet. Daughter cannot catch up with her. Patient with urinary frequency symptoms without abdominal pain as per daughter. Recent sick COVID-19 contacts at home. Patient has not received COVID-19 vaccination. Has not seen a primary care doctor in decades. O2 sats 80s on room air upon arrival at the ER Solu-Medrol and neb treatment given at the ER. 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 Admission Exam Per Admitting Provider Physical Exam: GENERAL: Comfortable, oriented to month, slightly hard of hearing, no respiratory distress SKIN: Normal color, warm HEENT: [place] palpebral conjunctivae, no ptosis, dry buccal mucosa, nasal cannula in place NECK : Supple, no tenderness CHEST : Decreased breath sounds, occasional expiratory wheezes, no tenderness HEART : RRR, no obvious murmurs ABDOMEN: no distention, nontender EXTREMITIES : No LE swelling/tenderness, no other conspicuous deformities noted NEUROLOGIC : Coherent, oriented to month, no facial asymmetry, slightly hard of hearing, gait and stance not assessed Principal Diagnosis Acute hypoxic respiratory failure, COVID-19 virus infection, metabolic encephalopathy-cleared Discharge Exam Constitutional + thin; not ill appearing Eyes PERRL, conjunctivae normal, anicteric sclerae ENMT external ear and nose normal, oropharynx normal Neck trachea midline, no thyromegaly Respiratory no respiratory distress Auscultation: + diminished lung sounds; no crackles Cardiovascular Rate/Rhythm: regular rate and regular rhythm; not tachycardic Heart Sounds: normal S1 and normal S2; no murmur Extremities: no edema Gastrointestinal (Abdomen) Inspection/Auscultation: abdomen not distended Percussion/Palpation: abdomen soft; abdomen nontender Discharge Data Allergies Allergy/AdvReac Type Severity Reaction Status Date / Time No Known Allergies Allergy Verified 03/27/21 01:15 Consultations 03/27/21 04:13 ED Decision to Admit Stat Ordered Studies 03/27/21 04:56 CT head/brain wo con Urgent Hospital Course (1) Encephalopathy: Acute metabolic encephalopathy Possible undiagnosed dementia Delirium in setting of acute infection, suspected UTI and ceftriaxone was initiated - CT Head:No acute intracranial abnormality. 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 Reorient frequently Mental status back to baseline Remains stable Acute hypoxic respiratory failure COVID-19 pneumonia --CXR:Reticular interstitial opacities with ill-defined airspace densities, most pronounced in the left lung base and left midlung. Findings are suspicious for an infectious or inflammatory pneumonitis. Cardiomegaly. 3. 9 mm nodular density of the lateral right midlung. Attention at follow-up recommended to exclude a pulmonary nodule. --Continue dexamethasone Patient/Patient's family requested no Remdesivir given decreased creatinine clearance (Discussed risks and benefits) On Rocephin, Doxycycline for possible bacterial infection CRP 16.4>8.8 Procalcitonin 2.6>0.58 Blood Cx: Negative to date Encouraged to prone Pulmonary hygiene with incentive spirometry, flutter valve Required up to 3 L of oxygen to maintain saturation but has been saturating on room air as of 04-22 She has been moving around in the room without any dizziness and/or unsteadiness She will have 2 step O2 saturation test and possible discharge this afternoon Abnormal urinalysis UTI ruled out On Rocephin empirically as above Urine culture negative -ceftriaxone has been discontinued Acute kidney injury Cr:1.2>>0.96 Received gentle IV fluids Renal function has been normalized Thrombocytopenia Platelet count improved Monitor CBC-resolved DVT Px: Heparin SQ Code Status DNR/DNI Disposition Home with HH Likely discharge this afternoon Total Time Total Time Spent Total Time Spent (In Minutes): 35 minutes Discharge Plan Discharge Items Patient Disposition: Home - Self-Care Reason For Visit: RESPIRATORY FAILURE, COVID Discharge Diagnosis: Acute hypoxic respiratory failure, COVID-19 virus infection, metabolic encephalopathy-cleared Condition on Discharge: Fair Activity: Resume your previous activity Non-emergency contact: Primary Care Provider Call non-emergency contact if: you have any medication questions and your symptoms worsen Follow-up/Referrals: Sharon Higgins MD [Outside Practitioners] - (Date & Time 04/10/2021 11:20 AM Provider Sharon Higgins MD Family [address], [place] [address] ) Diet: Regular Diet Texture: Easy to Chew Addtl Attending Provider Instructions: Please take precautions to avoid falls Take your medications as advised Use oxygen at 2 L/min at rest and 3 L/min with ambulation Maintain home isolation until 04/06/2021 as per guidelines below. Please give appointment with your healthcare provider Home Isolation COVID-19 Instructions The following information about Home Isolation is from the CDC Website: https://www.cdc.gov/coronavirus/2019-ncov/hcp/fczornvq-mrfzkqe-htdsem.html Stay home except to get medical care People who are mildly ill with COVID-19 are able to isolate at home during their illness. You should restrict activities outside your home, except for getting medical care. Do not go to work, school, or public areas. Avoid using public transportation, ride-sharing, or taxis. Separate yourself from other people and animals in your home People: As much as possible, you should stay in a specific room and away from other people in your home. Also, you should use a separate bathroom, if available. Animals: You should restrict contact with pets and other animals while you are sick with COVID-19, just like you would around other people. Although there have not been reports of pets or other animals becoming sick with COVID-19, it is still recommended that people sick with COVID-19 limit contact with animals until more information is known about the virus. When possible, have another member of your household care for your animals while you are sick. If you are sick with COVID-19, avoid contact with your pet, including petting, snuggling, being kissed or licked, and sharing food. If you must care for your pet or be around animals while you are sick, wash your hands before and after you interact with pets and wear a face mask. Call ahead before visiting your doctor If you have a medical appointment, call the healthcare provider and tell them that you have or may have COVID-19. This will help the healthcare providers office take steps to keep other people from getting infected or exposed. Wear a face mask You should wear a face mask when you are around other people (e.g., sharing a room or vehicle) or pets and before you enter a healthcare providers office. If you are not able to wear a face mask (for example, because it causes trouble breathing), then people who live with you should not stay in the same room with you, or they should wear a face mask if they enter your room. Cover your coughs and sneezes Cover your mouth and nose with a tissue when you cough or sneeze. Throw used tissues in a lined trash can. Immediately wash your hands with soap and water for at least 20 seconds or, if soap and water are not available, clean your hands with an alcohol-based hand stem frazer that contains at least 60% alcohol. Clean your hands often Wash your hands often with soap and water for at least 20 seconds, especially after blowing your nose, coughing, or sneezing; going to the bathroom; and before eating or preparing food. If soap and water are not readily available, use an alcohol-based hand stem frazer with at least 60% alcohol, covering all surfaces of your hands and rubbing them together until they feel dry. Soap and water are the best option if hands are visibly dirty. Avoid touching your eyes, nose, and mouth with unwashed hands. Avoid sharing personal household items You should not share dishes, drinking glasses, cups, eating utensils, towels, or bedding with other people or pets in your home. After using these items, they should be washed thoroughly with soap and water. Clean all high-touch surfaces everyday High touch surfaces include counters, tabletops, doorknobs, bathroom fixtures, toilets, phones, keyboards, tablets, and bedside tables. Also, clean any surfaces that may have blood, stool, or body fluids on them. Use a household cleaning spray or wipe, according to the label instructions. Labels contain instructions for safe and effective use of the cleaning product including precautions you should take when applying the product, such as wearing gloves and making sure you have good ventilation during use of the product. Monitor your symptoms Seek prompt medical attention if your illness is worsening (e.g., difficulty breathing).Beforeseeking care, call your healthcare provider and tell them that you have, or are being evaluated for, COVID-19. Put on a face mask before you enter the facility. These steps will help the healthcare providers office to keep other people in the office or waiting room from getting infected or exposed. Ask your healthcare provider to call the local or state health department. Persons who are placed under active monitoring or facilitated self- monitoring should follow instructions provided by their local health department or occupational health professionals, as appropriate. When working with your local health department check their available hours. If you have a medical emergency and need to call 911, notify the dispatch personnel that you have, or are being evaluated for COVID-19. If possible, put on a face mask before emergency medical services arrive. Discontinuing home isolation Patients with confirmed COVID-19 should remain under home isolation precautions until the risk of secondary transmission to others is thought to be low. The decision to discontinue home isolation precautions should be made on a [id number] basis, in consultation with healthcare providers and [facility] health departments. Pending Studies at Discharge: No Stand-Alone Forms: [facility], Smoking Cessation Medications and DC Order Prescriptions: New doxycycline hyclate 100 mg Capsule 100 mg PO BID 3 Days Qty: 6 RF: 0 benzonatate 100 mg Capsule 100 mg PO TID 10 Days Qty: 30 RF: 0 dexamethasone 6 mg tablet 6 mg PO DAILY Qty: 5 RF: 0 albuterol sulfate 90 mcg/actuation HFA aerosol inhaler 2 inh inhalation Q6H PRN (Reason: shortness of breath or wheezing) Qty: 8.5 RF: 0 Discharge Orders: Discharge Order (Routine); Ordered 04/02/21 Ordered By: Miley López Admission Data Admit Date/Time: 03/27/21 05:07 Attending Provider: Miley López Admit Provider: Aramis Gibbs Primary Care Provider: PCP,NO Other Providers: Aramis Gibbs ; Prasanna Michelle Other Interventions: Discharge Summary Assessment (RN) Last Done: 04/02/21 16:42
== END 2021-04-02 17:53 | disposition home health service (06) | DRG 177 ==
LOC: ED 00:48 → EDINP 02:07 → SUATTDRO 05:07 → 2E 08:13

== ENCOUNTER 2022-05-11 20:36 | Observation (INO) ==
[2022-05-11 21:26] LABS: Base Excess VBG 0.1 mEq/L; HCO3 VBG 24 mmol/L; Oxygen Saturation VBG 86.4 %; PCO2 VBG 34 mmHg (38-50); PO2 VBG 50 mmHg; pH VBG 7.45 (7.36-7.41)
[2022-05-11 21:34] LABS: Basophils # (auto) 0.05 K/uL (0-0.2); Basophils % (auto) 0.7 %; Eosinophils # (auto) 0.02 K/uL (0-0.50); Eosinophils % (auto) 0.3 %; Hematocrit (blood only) 39.9 % (37.0-47.0); Hemoglobin 13.4 g/dl (12.0-16.0); Immature Granulocytes # (auto) 0.03 K/uL (0.01-0.20); Immature Granulocytes % (auto) 0.4 %; Lymphocytes # (auto) 0.91 K/uL (1.2-3.4); Lymphocytes % (auto) 13.4 %; Mean Corpuscular Hemoglobin 30.8 pg (25.0-34.0); Mean Corpuscular Hgb Conc 33.6 g/dL (32.0-36.0); Mean Corpuscular Volume 91.7 fL (80.0-100.0); Mean Platelet Volume 10.6 fL (9.4-12.4); Monocytes # (auto) 0.58 K/uL (0.11-0.59); Monocytes % (auto) 8.6 %; Neutrophils # (auto) 5.18 K/uL (1.40-6.50); Neutrophils % (auto) 76.6 %; Platelet Count 120 K/uL (130-400); RDW Coefficient of Variation 14.2 % (11.5-14.5); RDW Standard Deviation 48.5 fL (36.4-46.3); Red Blood Count 4.35 M/uL (4.20-5.40); White Blood Count 6.77 K/ul (4.8-10.8)
[2022-05-11 21:50] LABS: Albumin Globulin Ratio 1.3 (0.9-2); Albumin Level 3.9 gm/dl (3.4-5.0); BUN Creatinine Ratio 17.6 (10-20); Bilirubin,Total 0.8 mg/dl (0.2-1.0); Calcium 8.9 mg/dl (8.5-10.1); Creatinine Clr Calc Pharmacy 24.1 ml/min; Est GFR (African American) 43.2 ml/min; Est GFR (Non-African American) 37.3 ml/min; Magnesium 1.8 mg/dl (1.7-2.4); Total Protein 6.9 gm/dl (6.0-8.3)
[2022-05-11 21:59] LABS: INR 1.2 (0.9-1.1); Partial Thromboplastin Ratio 1.1; Partial Thromboplastin Time 30.2 Seconds (21.0-31.0); Prothrombin Time 12.4 Seconds (9.0-12.0)
[2022-05-11] MEDS ORDERED: ACETAMINOPHEN 500 MG TAB PO STA (21:59)
[2022-05-11 22:00] LABS: Troponin I High Sensitivity 63.9 pg/ml (0-14)
[2022-05-11] MEDS ORDERED: OPTIRAY 320 500ml IV ONE (22:17)
--- NOTE | 2022-05-11 22:59 | CT Scan Report ---
Exam(s): CTA CHEST IV Amt: 108ml EXAM: CT Chest With Intravenous Contrast CLINICAL HISTORY: Reason for exam: ro PE. TECHNIQUE: Axial computed tomographic images of the chest with intravenous contrast. Automated exposure control was utilized for the study. A dose lowering technique was utilized adhering to the principles of ALARA. COMPARISON: No relevant prior studies available. FINDINGS: There is adequate pulmonary artery opacification. Main pulmonary artery is normal in caliber. There is no pulmonary embolism. There is no thoracic aortic aneurysm. Heart is enlarged. Coronary arteries and mitral annulus are calcified. There is no pericardial effusion. Fluid-filled esophagus may be due to reflux. There is no adenopathy by CT size criteria. There is moderate centrilobular emphysema without consolidation, mass, or central endobronchial lesion. There is no pleural effusion or pneumothorax. There is no acute fracture or dislocation. IMPRESSION: 1. No pulmonary embolism. 2. Cardiomegaly. 3. Emphysema. 4. Fluid within the esophagus, possibly due to reflux. Electronically signed by: Yessy Barry M.D. 05/11/22 22:58 PM
--- NOTE | 2022-05-12 00:28 | History & Physical Report ---
Date of Service May 12, 2022 Assessment & Plan (1) COVID-19: (2) Elevated troponin: (3) Emphysema lung: (4) Severe mitral regurgitation: (5) Cerebrovascular disease: (6) Tobacco dependence: Plan COVID-19 infection with mild hypoxia/COPD exacerbation- Dexamethasone 6 mg IV daily Not a remdesivir candidate due to decreased GFR Duonebs every 4 hours while awake and every 2 hours when necessary. Elevated troponin/mitral valve prolapse/severe mitral regurgitation/moderate tricuspid regurgitation- The patient will be admitted to telemetry for serial cardiac enzymes, serial EKG's, cardiac rhythm monitoring and a 2-D echocardiogram with Dopplers. Type II SD supply demand mismatch Order echocardiogram to assess for possible pericarditis/pericardial effusion. We will also compare to previous echo on 10/15/2021 Of note, patient had been assessed for valve replacement at , but was not felt to be a good candidate Fluid-filled esophagus- Placed on pantoprazole 40 mg daily Tobacco abuse disorder/multiple pulmonary nodules- Cessation counseling History of Present Illness Chief Complaint: The patient is brought to the emergency department by daughter, due to progressive weakness and shortness of breath after having been diagnosed with COVID-19 infection the previous day in the emergency department Primary Care Provider: Caty Rabago MD The patient is a 86-year-old female with a past medical history including COPD, severe mitral regurgitation, cerebrovascular disease, chorea, multiple lung nodules, tobacco abuse disorder. She had been seen at the emergency department yesterday, for the same symptoms well but less intense, and was diagnosed with COVID-19 infection with a mildly elevated troponin. Patient is febrile today with temperature 38.7, mildly more hypoxic with pulse ox into the upper 80s to low 90s. Troponin is increased from 37.7-63.9. Patient is referred for con sideration for admission. Of note, she was also admitted for COVID-19 infection on 03/27/2021 Allergies Allergy/AdvReac Type Severity Reaction Status Date / Time No Known Allergies Allergy Verified 05/11/22 23:07 Home Medications Medication Instructions Recorded Confirmed Type No Known Home Medications 06/03/21 05/11/22 History Past Med/Surg History Medical History COVID Emphysema lung Severe mitral regurgitation Tobacco dependence Family History Denies family history of Ovarian cancer Prostate cancer Breast cancer Lung cancer Colorectal cancer Social History Smoking Status: Current every day smoker packs per day: 1; Cigarettes Per Day: 1 PPD; Second Hand Exposure: No; Do You Dip or Chew Tobacco: No; Tobacco Cessation Education Requested by Patient: No Hx Alcohol Use: No Hx Substance Use: No Preferred Language: Libyan Communication Ability: Effective Production Control Planner Required: No Beliefs That Will Affect Care: None marital status: Current Living Situation: Family How many Children do You have: 1 Other Information That Helps Us Care for You: No Feels Safe at Home: Yes Safety Concerns: Feels Safe At This Time caffeine: Yes Dental Care, Regularly: No Seatbelt Use: always Sunscreen Use: Yes Assistive Devices: Denture - Upper Review of Systems Review of Systems: Per the daughters report: Denies chest pain, palpitations, cough, lower extremity swelling, sore throat, fevers, chills, sweats, nausea, vomiting, diarrhea , constipation, abdominal pain, pelvic pain, blood in urine or stool, dysuria, urinary frequency or urgency, lightheadedness, dizziness, headache, loss of consciousness, rash, abnormal bruising or bleeding, imbalance, focal weakness, numbness or tingling in arms or legs, back or neck pain, or night sweats. The review of systems is otherwise negative other than for that already noted above, and at least 10 systems have been reviewed. Physical Exam Physical Exam: The patient awakens easily, normocephalic and atraumatic, lying in bed and in no acute distress. HEENT--PERRL, EOMI, mucous membranes and oropharynx dry. Neck--supple. No JVD. No bruits. Thyroid normal, trachea midline, no adenopathy. Heart--normal S1 and S2. No murmurs, rubs or gallops. Lungs--few coarse breath sounds bilaterally, no respiratory distress, no accessory muscle use. Abdomen--normal bowel sounds and soft. Nontender. Nondistended, no hernias or masses, no organomegaly. Extremities--no cyanosis or clubbing. No edema. Dermatologic--normal skin turgor, normal color, no abnormal lymph nodes, no rash. Neurologic--cranial nerves II through XII grossly intact. Rheumatologic--normal range of motion. Psychiatric--normal affect. Results & Data Results & Data ([facility]) Vital Signs (Past 12 Hours) Vital Signs Temp Pulse Resp BP Pulse Ox O2 Del Method 05/11/22 23:30 96 05/11/22 23:30 105/55 L 05/11/22 23:00 94 05/11/22 23:00 105/60 05/11/22 22:56 94 05/11/22 23:50 36.7 C 05/11/22 22:00 78 28 H 90 05/11/22 22:00 128/64 05/11/22 21:30 87 28 H 92 05/11/22 21:30 134/72 05/11/22 21:19 89 28 H 93 05/11/22 21:03 94 Room Air 05/11/22 21:03 94 Room Air 05/11/22 20:36 38.7 C H 93 H 20 115/68 93 Room Air Laboratory Results Laboratory Results WBC 6.77 K/ul (4.8-10.8) 05/11/22 21:00 RBC 4.35 M/uL (4.20-5.40) 05/11/22 21:00 Hgb 13.4 g/dl (12.0-16.0) 05/11/22 21:00 Hct 39.9 % (37.0-47.0) 05/11/22 21:00 MCV 91.7 fL (80.0-100.0) 05/11/22 21:00 MCH 30.8 pg (25.0-34.0) 05/11/22 21:00 MCHC 33.6 g/dL (32.0-36.0) 05/11/22 21:00 RDW Std Deviation 48.5 fL (36.4-46.3) H 05/11/22 21:00 RDW Coeff of Selena 14.2 % (11.5-14.5) 05/11/22 21:00 Plt Count 120 K/uL (130-400) L 05/11/22 21:00 MPV 10.6 fL (9.4-12.4) 05/11/22 21:00 Immature Gran % (Auto) 0.4 % 05/11/22 21:00 Neut % (Auto) 76.6 % 05/11/22 21:00 Lymph % (Auto) 13.4 % 05/11/22 21:00 [place] % (Auto) 8.6 % 05/11/22 21:00 Eos % (Auto) 0.3 % 05/11/22 21:00 Baso % (Auto) 0.7 % 05/11/22 21:00 Neut # (Auto) 5.18 K/uL (1.40-6.50) 05/11/22 21:00 Lymph # (Auto) 0.91 K/uL (1.2-3.4) L 05/11/22 21:00 [place] # (Auto) 0.58 K/uL (0.11-0.59) 05/11/22 21: Eos # (Auto) 0.02 K/uL (0-0.50) 05/11/22 21:00 Baso # (Auto) 0.05 K/uL (0-0.2) 05/11/22 21: Immature Gran # (Auto) 0.03 K/uL (0.01-0.20) 05/11/22 21:00 PT 12.4 Seconds (9.0-12.0) H 05/11/22 21:00 INR 1.2 (0.9-1.1) H 05/11/22 21:00 APTT 30.2 Seconds (21.0-31.0) 05/11/22 21: PTT Ratio 1.1 05/11/22 21: VBG pH 7.45 (7.36-7.41) H 05/11/22:13 VBG pCO2 34 mmHg (38-50) L 05/11/22: VBG pO2 50 mmHg 05/11/22 21: VBG HCO3 24 mmol/L 05/11/22: VBG O2 Saturation 86.4 % 05/11/22: VBG Base Excess 0.1 mEq/L 05/11/22 21:13 Sodium 134 mmol/L (136-145) L 05/11/22 21:00 Potassium 4.0 mmol/L (3.5-5.1) 05/11/22 21: Chloride 102 mmol/L (98-107) 05/11/22 21:00 Carbon Dioxide 25 mmol/L (21-32) 05/11/22 21:00 Anion Gap 7 (3-11) 05/11/22 21:00 BUN 23 mg/dl (6-23) 05/11/22 21:00 Creatinine 1.31 mg/dl (0.6-1.2) H 05/11/22 21:00 Est Cr Clr Drug Dosing 24.1 ml/min 05/11/22 21:00 Est GFR ( Amer) 43.2 ml/min 05/11/22 21:00 Est GFR (Non-Af Amer) 37.3 ml/min 05/11/22 21:00 BUN/Creatinine Ratio 17.6 (10-20) 05/11/22 21:00 Glucose 109 mg/dl (70-99(Fasting)) H 05/11/22 21:00 Lactate 0.9 mmol/L (0.4-2.0) 05/11/22 21:20 Calcium 8.9 mg/dl (8.5-10.1) 05/11/22 21:00 Magnesium 1.8 mg/dl (1.7-2.4) 05/11/22 21:00 Total Bilirubin 0.8 mg/dl (0.2-1.0) 05/11/22 21:00 AST 20 U/L (13-39) 05/11/22 21:00 ALT 9 U/L (7-52) 05/11/22 21:00 Alkaline Phosphatase 49 U/L (34-104) 05/11/22 21:00 Troponin I High Sens 63.9 pg/ml (0-14) H* D 05/11/22 21:00 Total Protein 6.9 gm/dl (6.0-8.3) 05/11/22 21:00 Albumin 3.9 gm/dl (3.4-5.0) 05/11/22 21:00 Globulin 3.0 gm/dl (2.5-4.0) 05/11/22 21:00 Albumin/Globulin Ratio 1.3 (0.9-2) 05/11/22 21:00 Procalcitonin 0.20 ng/ml (0-0.5) 05/11/22 21:00 Urine Color Yellow 05/12/22 02:40 Urine Appearance Clear (Clear) 05/12/22 02:40 Urine pH 5.5 (4.5-7.5) 05/12/22 02:40 Ur Specific [place] > 1.045 (1.000-1.030) H 05/12/22 02:40 Urine Protein Negative (Negative) 05/12/22 02:40 Urine Glucose (UA) Negative (Negative) 05/12/22 02:40 Urine Ketones Negative (Negative) 05/12/22 02:40 Urine Blood Trace (Negative) H 05/12/22 02:40 Urine Nitrite Negative (Negative) 05/12/22 02:40 Urine Bilirubin Negative (Negative) 05/12/22 02:40 Urine Urobilinogen Negative (Negative) 05/12/22 02:40 Ur Leukocyte Esterase Negative (Negative) 05/12/22 02:40 Urine WBC (Auto) 0 /hpf (0-5) 05/12/22 02:40 Urine RBC (Auto) 0-4 /hpf (0-4) 05/12/22 02:40 U Hyaline Cast (Auto) 0 /lpf (0-5) 05/12/22 02:40 U Epithel Cells (Auto) 0-5 /lpf (0-5) 05/12/22 02:40 Urine Bacteria (Auto) Negative (Negative) 05/12/22 02:40 Impressions Chest CTA 05/11/22 21:04 Exam(s): CTA CHEST IV Amt: 108ml EXAM: CT Chest With Intravenous Contrast CLINICAL HISTORY: Reason for exam: ro PE. TECHNIQUE: Axial computed tomographic images of the chest with intravenous contrast. Automated exposure control was utilized for the study. A dose lowering technique was utilized adhering to the principles of ALARA. COMPARISON: No relevant prior studies available. FINDINGS: There is adequate pulmonary artery opacification. Main pulmonary artery is normal in caliber. There is no pulmonary embolism. There is no thoracic aortic aneurysm. Heart is enlarged. Coronary arteries and mitral annulus are calcified. There is no pericardial effusion. Fluid-filled esophagus may be due to reflux. There is no adenopathy by CT size criteria. There is moderate centrilobular emphysema without consolidation, mass, or central endobronchial lesion. There is no pleural effusion or pneumothorax. There is no acute fracture or dislocation. IMPRESSION: 1. No pulmonary embolism. 2. Cardiomegaly. 3. Emphysema. 4. Fluid within the esophagus, possibly due to reflux. Electronically signed by: Yessy Barry M.D. 05/11/22 22:58 PM Code Status & VTE Plan Code Status DNR/DNI VTE Prophylaxis Plan VTE Prophylaxis will be ordered: Yes PG Care Time/CCT Total # of Minutes Spent Total Time Spent with Patient: Total time spent is greater than 50% in coordination of care (as documented) at patient's floor/unit and/or counseling patient: Coding Level of Care Code 89304 INT INP/OBS CARE 3/75MIN Diagnoses COVID-19 U07.1 Elevated troponin R77.8 Emphysema lung J43.9 Severe mitral regurgitation I34.0 Cerebrovascular disease I67.9 Tobacco dependence F17.200
--- NOTE | 2022-05-12 00:35 | Emergency Department Note ---
History of Present Illness General Chief complaint: Weakness Stated complaint: COVID+,WEAKNESS Time Seen by Provider: 05/11/22 21:02 Source: patient and family (Daughter) History of Present Illness Provider complaint: Weakness COVID Onset (ago): day(s) 3 86-year-old female presents emergency department with her daughter for weakness and COVID. Patient states she was diagnosed with COVID yesterday. Patient's daughter reports since being discharged from the emergency department yesterday she has been having increasing weakness. Patient reports cough. Some difficulty breathing. No chest pain. No melena or hematochezia. No hematuria. Daughter does report that the patient has been having more frequent urinations and is concerned that the patient might have a UTI in addition. Fevers have been present. Home Medications Medication Instructions Recorded Confirmed Type No Known Home Medications 06/03/21 05/11/22 History Allergies Allergy/AdvReac Type Severity Reaction Status Date / Time No Known Allergies Allergy Verified 05/11/22 23:07 Past Med/Surg History Medical History COVID Emphysema lung Severe mitral regurgitation Tobacco dependence Family History Denies family history of Ovarian cancer Prostate cancer Breast cancer Lung cancer Colorectal cancer Social History Smoking Status: Former smoker packs per day: 1; Cigarettes Per Day: 1 PPD; Second Hand Exposure: No; Hx Alcohol Use: No Hx Substance Use: No Preferred Language: [place] Communication Ability: 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 Beliefs That Will Affect Care: None marital status: Current Living Situation: Family How many Children do You have: 1 Feels Safe at Home: Yes caffeine: Yes Dental Care, Regularly: No Seatbelt Use: always Sunscreen Use: Yes Assistive Devices: Oxygen - Continuous Physical Exam Vital Signs Vital Signs - 24 hr 05/11/22 20:36 05/11/22 21:03 05/11/22 21:03 Temperature 38.7 C H Temperature Source Temporal Artery Scan Pulse Rate 93 H Pulse Rate from SpO2 Sensor Respiratory Rate 20 Respiratory Effort / Characteristics Non-Labored Spontaneous Respiratory Depth Normal Blood Pressure 115/68 Blood Pressure Mean 83 Pulse Oximetry 93 94 94 Oxygen Delivery Method Room Air Room Air Room Air Sepsis Recent Fever Within 48 Hours Yes Sepsis New/Unexplained Change in Mental Status No Sepsis Action Taken by Nursing No Action Required 05/11/22 21:19 05/11/22 21:30 05/11/22 21:30 Temperature Temperature Source Pulse Rate 89 87 Pulse Rate from SpO2 Sensor 88 86 Respiratory Rate 28 H 28 H Respiratory Effort / Characteristics Respiratory Depth Blood Pressure 134/72 Blood Pressure Mean 92 Pulse Oximetry 93 92 Oxygen Delivery Method Sepsis Recent Fever Within 48 Hours Sepsis New/Unexplained Change in Mental Status Sepsis Action Taken by Nursing 05/11/22 22:00 05/11/22 22:00 05/11/22 23:50 Temperature 36.7 C Temperature Source Oral Pulse Rate 78 Pulse Rate from SpO2 Sensor 78 Respiratory Rate 28 H Respiratory Effort / Characteristics Respiratory Depth Blood Pressure 128/64 Blood Pressure Mean 85 Pulse Oximetry 90 Oxygen Delivery Method Sepsis Recent Fever Within 48 Hours Sepsis New/Unexplained Change in Mental Status Sepsis Action Taken by Nursing 05/11/22 22:56 05/11/22 23:00 05/11/22 23:00 Temperature Temperature Source Pulse Rate Pulse Rate from SpO2 Sensor 76 75 Respiratory Rate Respiratory Effort / Characteristics Respiratory Depth Blood Pressure 105/60 Blood Pressure Mean 75 Pulse Oximetry 94 94 Oxygen Delivery Method Sepsis Recent Fever Within 48 Hours Sepsis New/Unexplained Change in Mental Status Sepsis Action Taken by Nursing 05/11/22 23:30 05/11/22 23:30 Temperature Temperature Source Pulse Rate Pulse Rate from SpO2 Sensor 78 Respiratory Rate Respiratory Effort / Characteristics Respiratory Depth Blood Pressure 105/55 L Blood Pressure Mean 71 Pulse Oximetry 96 Oxygen Delivery Method Sepsis Recent Fever Within 48 Hours Sepsis New/Unexplained Change in Mental Status Sepsis Action Taken by Nursing Physical Exam GENERAL: Cachectic ill-appearing HENT: Exam performed. - Head: Normocephalic and atraumatic. EYES: Conjunctivae and EOM are normal. Right eye exhibits no discharge. Left eye exhibits no discharge. No scleral icterus. NECK: Normal range of motion. Neck supple. No JVD present. CV: Normal rate, regular rhythm, intact distal pulses. There is no peripheral edema. Palpable radial pulses bue. PULM/CHEST: Effort normal and breath sounds normal. No respiratory distress. No stridor. no wheezes. no rales. ABD: The abdomen is soft. There is no tenderness. NEURO: Motor and sensation grossly intact. SKIN: Skin is warm and dry. He is not diaphoretic. PSYCH: normal mood and affect. Behavior is normal. Judgment and thought content normal. Course Course 2101: The patient was evaluated in room B10. A complete history and physical exam was performed Cardiac monitoring: An order was placed for continuous cardiac monitoring. The monitor shows a rate of 90 with sinus rhythm interpreted by me 2305: Vital signs stable. Labs are within normal limits with the exception of a high-sensitivity of troponin of 63.9, up from yesterday which was in the 30s. CTA of the chest showed no pulmonary embolus. [facility] trending upward troponin. Dr. Pat jameson's team will be notified. Administered Medications Discontinued Medications Acetaminophen (Acetaminophen 500 Mg Tab) 1,000 mg PO NOW STA Stop: 05/11/22 22:00 Last Admin: 05/11/22 22:10 Dose: 1,000 mg Documented By: KASSIE Ioversol (Optiray 320 500ml) 108 ml IV ONCE ONE Stop: 05/11/22 22:18 Last Admin: 05/11/22 22:20 Dose: 108 ml Documented By: BHAVYA Medical Decision Making Medical Records Attestation: I reviewed the patient's medical records. External medical records reviewed. Patient was seen in the emergency department yesterday. Yesterday CT of the head was within normal limits. She was COVID- positive. Patient is unvaccinated against COVID-19. Patient was offered Paxlovid prescription but declined. Yesterday the patient had an initial high- sensitivity troponin of 33.4 and a delta troponin of 37.7 less than 20% increase. Laboratory Data Attestation: I reviewed the patient's lab results. 05/11/22 21:00 05/11/22 21:00 Lab Results 05/11/22 05/11/22 05/11/22 Range/Units 21:00 21:00 21:00 WBC 6.77 (4.8-10.8) K/ul RBC 4.35 (4.20-5.40) M/uL Hgb 13.4 (12.0-16.0) g/dl Hct 39.9 (37.0-47.0) % MCV 91.7 (80.0-100.0) fL MCH 30.8 (25.0-34.0) pg MCHC 33.6 (32.0-36.0) g/dL RDW Std Deviation 48.5 H (36.4-46.3) fL RDW Coeff of Selena 14.2 (11.5-14.5) % Plt Count 120 L (130-400) K/uL MPV 10.6 (9.4-12.4) fL Immature Gran % (Auto) 0.4 % Neut % (Auto) 76.6 % Lymph % (Auto) 13.4 % [place] % (Auto) 8.6 % Eos % (Auto) 0.3 % Baso % (Auto) 0.7 % Neut # (Auto) 5.18 (1.40-6.50) K/uL Lymph # (Auto) 0.91 L (1.2-3.4) K/uL [place] # (Auto) 0.58 (0.11-0.59) K/uL Eos # (Auto) 0.02 (0-0.50) K/uL Baso # (Auto) 0.05 (0-0.2) K/uL Immature Gran # (Auto) 0.03 (0.01-0.20) K/uL PT 12.4 H (9.0-12.0) Seconds INR 1.2 H (0.9-1.1) APTT 30.2 (21.0-31.0) Seconds PTT Ratio 1.1 VBG pH (7.36-7.41) VBG pCO2 (38-50) mmHg VBG pO2 mmHg VBG HCO3 mmol/L VBG O2 Saturation % VBG Base Excess mEq/L Sodium 134 L (136-145) mmol/L Potassium 4.0 (3.5-5.1) mmol/L Chloride 102 (98-107) mmol/L Carbon Dioxide 25 (21-32) mmol/L Anion Gap 7 (3-11) BUN 23 (6-23) mg/dl Creatinine 1.31 H (0.6-1.2) mg/dl Est Cr Clr Drug Dosing 24.1 ml/min Est GFR ( Amer) 43.2 ml/min Est GFR (Non-Af Amer) 37.3 ml/min BUN/Creatinine Ratio 17.6 (10-20) Glucose 109 H (70-99(Fasting)) mg/dl Lactate (0.4-2.0) mmol/L Calcium 8.9 (8.5-10.1) mg/dl Magnesium 1.8 (1.7-2.4) mg/dl Total Bilirubin 0.8 (0.2-1.0) mg/dl AST 20 (13-39) U/L ALT 9 (7-52) U/L Alkaline Phosphatase 49 (34-104) U/L Troponin I High Sens 63.9 H* D (0-14) pg/ml Total Protein 6.9 (6.0-8.3) gm/dl Albumin 3.9 (3.4-5.0) gm/dl Globulin 3.0 (2.5-4.0) gm/dl Albumin/Globulin Ratio 1.3 (0.9-2) Procalcitonin (0-0.5) ng/ml 05/11/22 05/11/22 05/11/22 Range/Units 21:00 21:13 21:20 WBC (4.8-10.8) K/ul RBC (4.20-5.40) M/uL Hgb (12.0-16.0) g/dl Hct (37.0-47.0) % MCV (80.0-100.0) fL MCH (25.0-34.0) pg MCHC (32.0-36.0) g/dL RDW Std Deviation (36.4-46.3) fL RDW Coeff of Selena (11.5-14.5) % Plt Count (130-400) K/uL MPV (9.4-12.4) fL Immature Gran % (Auto) % Neut % (Auto) % Lymph % (Auto) % [place] % (Auto) % Eos % (Auto) % Baso % (Auto) % Neut # (Auto) (1.40-6.50) K/uL Lymph # (Auto) (1.2-3.4) K/uL [place] # (Auto) (0.11-0.59) K/uL Eos # (Auto) (0-0.50) K/uL Baso # (Auto) (0-0.2) K/uL Immature Gran # (Auto) (0.01-0.20) K/uL PT (9.0-12.0) Seconds INR (0.9-1.1) APTT (21.0-31.0) Seconds PTT Ratio VBG pH 7.45 H (7.36-7.41) VBG pCO2 34 L (38-50) mmHg VBG pO2 50 mmHg VBG HCO3 24 mmol/L VBG O2 Saturation 86.4 % VBG Base Excess 0.1 mEq/L Sodium (136-145) mmol/L Potassium (3.5-5.1) mmol/L Chloride (98-107) mmol/L Carbon Dioxide (21-32) mmol/L Anion Gap (3-11) BUN (6-23) mg/dl Creatinine (0.6-1.2) mg/dl Est Cr Clr Drug Dosing ml/min Est GFR ( Amer) ml/min Est GFR (Non-Af Amer) ml/min BUN/Creatinine Ratio (10-20) Glucose (70-99(Fasting)) mg/dl Lactate 0.9 (0.4-2.0) mmol/L Calcium (8.5-10.1) mg/dl Magnesium (1.7-2.4) mg/dl Total Bilirubin (0.2-1.0) mg/dl AST (13-39) U/L ALT (7-52) U/L Alkaline Phosphatase (34-104) U/L Troponin I High Sens (0-14) pg/ml Total Protein (6.0-8.3) gm/dl Albumin (3.4-5.0) gm/dl Globulin (2.5-4.0) gm/dl Albumin/Globulin Ratio (0.9-2) Procalcitonin 0.20 (0-0.5) ng/ml Imaging Data Attestation: I personally reviewed and interpreted this imaging study as follows: My Impression: Chest x-ray: Cardiomegaly severe emphysema Radiologist's Impression: Chest CTA 05/11/22 21:04 Exam(s): CTA CHEST IV Amt: 108ml EXAM: CT Chest With Intravenous Contrast CLINICAL HISTORY: Reason for exam: ro PE. TECHNIQUE: Axial computed tomographic images of the chest with intravenous contrast. Automated exposure control was utilized for the study. A dose lowering technique was utilized adhering to the principles of ALARA. COMPARISON: No relevant prior studies available. FINDINGS: There is adequate pulmonary artery opacification. Main pulmonary artery is normal in caliber. There is no pulmonary embolism. There is no thoracic aortic aneurysm. Heart is enlarged. Coronary arteries and mitral annulus are calcified. There is no pericardial effusion. Fluid-filled esophagus may be due to reflux. There is no adenopathy by CT size criteria. There is moderate centrilobular emphysema without consolidation, mass, or central endobronchial lesion. There is no pleural effusion or pneumothorax. There is no acute fracture or dislocation. IMPRESSION: 1. No pulmonary embolism. 2. Cardiomegaly. 3. Emphysema. 4. Fluid within the esophagus, possibly due to reflux. Electronically signed by: Yessy Barry M.D. 05/11/22 22:58 PM ECG Data Attestation: I personally reviewed and interpreted this ECG as follows: Indication: + weakness Rate (beats per minute): 92 Rhythm: + normal sinus ECG Intervals/blocks: + Normal QRS, + Normal AL and + Normal QT-c ECG ST segments: + Normal ST segments MDM Narrative 2102: The patient was evaluated in room B10. A complete history and physical exam was performed Cardiac monitoring: An order was placed for continuous cardiac monitoring. The monitor shows a rate of 90 with sinus rhythm interpreted by me 2305: Vital signs stable. Labs are within normal limits with the exception of a high-sensitivity of troponin of 63.9, up from yesterday which was in the 30s. CTA of the chest showed no pulmonary embolus. Patient [facility] be [facility] given her trending upward troponin. Dr. Al's team will be notified. Impression & Plan COVID-19, Elevated troponin Discharge Plan Visit Data Chief Complaint: Weakness Stated Complaint: COVID+,WEAKNESS ED Provider: Dale Basurto Discharge Problem: COVID-19, Elevated troponin Patient Disposition: Being Evaluated by Hospitalist Forms Stand Alone Forms: My [facility] Prescriptions Prescriptions: No Action No Known Home Medications Referrals Referrals: Caty Rabago MD [Primary Care Provider] -
[2022-05-12] MEDS: dexAMETHasone 6 MG in SYRINGE 0 ML IV SCH ×2 (01:51→07:46)
[2022-05-12] MEDS ORDERED: ALUMINUM/MAGNESIUM SUSP 30 ML UDC PO PRN (03:18)
[2022-05-12] MEDS ORDERED: MAGNESIUM HYDROXIDE SUSP 30 ML UDC PO PRN (03:18)
[2022-05-12] MEDS ORDERED: ACETAMINOPHEN 325 MG TAB PO PRN (03:18)
[2022-05-12] MEDS ORDERED: SODIUM CHLORIDE 0.9% 1000ML 1,000 ML IV SCH (03:18)
[2022-05-12] MEDS ORDERED: ONDANSETRON INJ 2 MG/ML 2 ML VIAL IV PRN (03:18)
[2022-05-12 03:34] LABS: Appearance Urine Clear (Clear); Bacteria Urine Automated Negative (Negative); Bilirubin Urine Negative (Negative); Blood Urine Trace (Negative); Cast Urine Automated 0 /lpf (0-5); Color Urine Yellow; Epithelial Cell Urine Auto 0-5 /lpf (0-5); Glucose Urine UA Negative (Negative); Ketones Urine Negative (Negative); Leukocyte Esterase Urine Negative (Negative); Nitrite Urine Negative (Negative); Protein Urine Negative (Negative); RBC Urine Automated 0-4 /hpf (0-4); Specific Gravity Urine > 1.045 (1.000-1.030); Urobilinogen Urine Negative (Negative); WBC Urine Automated 0 /hpf (0-5); pH Urine 5.5 (4.5-7.5)
--- NOTE | 2022-05-12 07:24 | XRay Report ---
XR chest 1V portable CLINICAL HISTORY: Sepsis TECHNIQUE: Single frontal radiograph of the chest was obtained. Comparison: Comparison is made to chest radiograph 05/10/2022 FINDINGS: No lines and tubes are seen. Cardiomegaly is noted. Reticular interstitial opacities are seen. No kamaljit dence of pleural effusion or pneumothorax. IMPRESSION: No acute chest disease. ACT 112: Negative or not required by law. Electronically signed by: Luisito Mercado M.D. 05/12/2022 7:22 AM
[2022-05-12 08:43] LABS: Basophils # (auto) 0.03 K/uL (0-0.2); Basophils % (auto) 0.5 %; Hematocrit (blood only) 43.3 % (37.0-47.0); Hemoglobin 14.7 g/dl (12.0-16.0); Immature Granulocytes # (auto) 0.02 K/uL (0.01-0.20); Immature Granulocytes % (auto) 0.3 %; Lymphocytes # (auto) 0.67 K/uL (1.2-3.4); Lymphocytes % (auto) 11.1 %; Mean Corpuscular Hgb Conc 33.9 g/dL (32.0-36.0); Mean Corpuscular Volume 91.4 fL (80.0-100.0); Mean Platelet Volume 10.6 fL (9.4-12.4); Monocytes # (auto) 0.17 K/uL (0.11-0.59); Monocytes % (auto) 2.8 %; Neutrophils # (auto) 5.17 K/uL (1.40-6.50); Neutrophils % (auto) 85.3 %; Platelet Count 118 K/uL (130-400); RDW Coefficient of Variation 14.4 % (11.5-14.5); RDW Standard Deviation 48.9 fL (36.4-46.3); Red Blood Count 4.74 M/uL (4.20-5.40); White Blood Count 6.06 K/ul (4.8-10.8)
[2022-05-12 08:59] LABS: Albumin Level 4.1 gm/dl (3.4-5.0); BUN Creatinine Ratio 18.9 (10-20); Calcium 8.8 mg/dl (8.5-10.1); Creatinine Clr Calc Pharmacy 27.8 ml/min; Est GFR (African American) 52.8 ml/min; Est GFR (Non-African American) 45.6 ml/min; Potassium 3.6 mmol/L (3.5-5.1)
[2022-05-12] MEDS ORDERED: HEPARIN SOD 5,000 UNIT/0.5 ML VIAL SQ SCH (09:00)
[2022-05-12] MEDS ORDERED: PANTOprazole 40 MG TAB PO SCH (09:00)
--- NOTE | 2022-05-12 14:08 | Discharge Summary ---
Date of Service May 12, 2022 Admission HPI Per Admitting Provider The patient is a 86-year-old female with a past medical history including COPD, severe mitral regurgitation, cerebrovascular disease, chorea, multiple lung nodules, tobacco abuse disorder. She had been seen at the emergency department yesterday, for the same symptoms well but less intense, and was diagnosed with COVID-19 infection with a mildly elevated troponin. Patient is febrile today with temperature 38.7, mildly more hypoxic with pulse ox into the upper 80s to low 90s. Troponin is increased from 37.7-63.9. Patient is referred for consideration for admission. Of note, she was also admitted for COVID-19 infection on 03/27/2021 Principal Diagnosis covid infection Discharge Exam The patient is awake, alert and oriented 3, well developed and well nourished, normocephalic and atraumatic, lying in bed and in no acute distress. HEENT--PERRL, EOMI, mucous membranes and oropharynx mildly dry Neck--supple. No JVD. No bruits. Thyroid normal, trachea midline, no adenopathy. Heart--normal S1 and S2. No murmurs, rubs or gallops. Lungs--clear bilaterally, no respiratory distress, no accessory muscle use. Abdomen--normal bowel sounds and soft. Mild epigastric and left sided abdominal pain Extremities--no cyanosis or clubbing. No edema. Dermatologic--normal skin turgor, normal color, no abnormal lymph nodes, no rash. Neurologic--cranial nerves II through XII grossly intact. Rheumatologic--normal range of motion. Psychiatric--normal affect. Discharge Data Allergies Allergy/AdvReac Type Severity Reaction Status Date / Time No Known Allergies Allergy Verified 05/11/22 23:07 Consultations 05/11/22 23:05 ED Decision to Admit Stat Ordered Studies 05/11/22 21:04 CT angio chest PE protocol Stat Hospital Course (1) COVID-19: (2) Elevated troponin: (3) Emphysema lung: (4) Severe mitral regurgitation: (5) Cerebrovascular disease: (6) Tobacco dependence: Plan COVID-19 infection with mild hypoxia/COPD exacerbation- Dexamethasone 6 mg IV daily Not a remdesivir candidate due to decreased GFR Duonebs every 4 hours while awake and every 2 hours when necessary. Elevated troponin/mitral valve prolapse/severe mitral regurgitation/moderate tricuspid regurgitation- The patient will be admitted to telemetry for serial cardiac enzymes, serial EKG's, cardiac rhythm monitoring and a 2-D echocardiogram with Dopplers. Type II OR supply demand mismatch Order echocardiogram to assess for possible pericarditis/pericardial effusion. We will also compare to previous echo on 10/15/2021 Of note, patient had been assessed for valve replacement at [facility], but was not felt to be a good candidate Fluid-filled esophagus- Placed on pantoprazole 40 mg daily Tobacco abuse disorder/multiple pulmonary nodules- Cessation counseling Total Time Total Time Spent Total Time Spent (In Minutes): 35 Discharge Plan Discharge Items Patient Disposition: Home - Self-Care Reason For Visit: NSTEMI, COVID-19, HYPOXIA Discharge Diagnosis: covid infection Activity: Resume your previous activity Non-emergency contact: Primary Care Provider Call non-emergency contact if: you have any medication questions and your symptoms worsen Follow-up/Referrals: Caty Rabago MD [Primary Care Provider] - 05/22/22 3:00 pm (Will see LORI Raman in Dr Rabago's office) Diet: Regular Addtl Attending Provider Instructions: please make appointment to follow up with your regular PCP Pending Studies at Discharge: No Stand-Alone Forms: My [employer], Smoking Cessation Medications and DC Order Prescriptions: No Action No Known Home Medications Discharge Orders: Discharge Order (Routine); Ordered 05/12/22 Ordered By: Óscar Beckham Admission Data Admit Date/Time: 05/12/22 00:28 Attending Provider: Óscar Beckahm Admit Provider: Stephane Ulloa Primary Care Provider: Caty Rabago Other Providers: Stephane Ulloa Other Interventions: Discharge Summary Assessment (RN) Last Done: 05/12/22 13:47 Coding Level of Care Code 36546 INP/OBS DISCH >30 MIN Diagnoses COVID-19 U07.1 Elevated troponin R77.8 Emphysema lung J43.9 Severe mitral regurgitation I34.0 Cerebrovascular disease I67.9 Tobacco dependence F17.200 Time Spent (min) 35
--- NOTE | 2022-05-12 17:43 | XCELERA ---
[id number]
--- NOTE | 2022-05-13 06:05 | Electrocardiogram Report ---
Test Reason : Blood Pressure : / mmHG Vent. Rate : 092 BPM Atrial Rate : 092 BPM P-R Int : 136 ms QRS Dur : 098 ms QT Int : 366 ms P-R-T Axes : 063 005 -07 degrees QTc Int : 452 ms Normal sinus rhythm Incomplete right bundle branch block Septal infarct , age undetermined Abnormal ECG When compared with ECG of 10-MAY-2022 16:52, Premature ventricular complexes are no longer Present Septal infarct is now Present Confirmed by Scotty Swanson ([id number]) on 05/13/2022 6:04:57 AM Referred By: REFERRED SELF Confirmed By:Scotty Swanson
== END 2022-05-12 14:18 | disposition home or self-care (01) | DRG 177 ==
LOC: ED 20:36 → INTOOBSV 05-12 00:28 → SUATTDRO 05-12 00:28 → 2S 05-12 00:28

== ENCOUNTER 2022-08-22 09:14 | Observation (INO) ==
--- NOTE | 2022-08-22 09:49 | Emergency Department Note ---
Impression & Plan Acute respiratory failure with hypoxia, Elevated troponin, History of cigarette smoking, Atypical chest pain ED Provider Note NAME: CIRO COPELAND AGE: 87 SEX: F : 1935 ARRIVES VIA: Walk-In INFORMANT: Patient, ED PROVIDER(S): Eddi Quinteros MD CHIEF COMPLAINT: Chest pain MEDICAL DECISION MAKING: Patient presents for right-sided chest pain. The patient did have some scant wheezing noted. The patient was treated with a IV fluids DuoNebs magnesium and steroids. EKG troponin and chest x-ray also obtained along with COVID swab. Patient's blood work shows mild white count of 11.6 with a normal H&H and platelet count. The patient's kidney function is unremarkable. Hyponatremic at 134. Initial troponin slightly elevated at 14 but the patient is a chronic troponins in the past. Patient does have mild EKG changes. The patient did have improvement in symptoms. Upon subsequent reassessment the patient had some right upper quadrant discomfort which is somewhat adjacent to where she was describing her chest pain so an ultrasound of the right upper quadrant was ordered. COVID flu and RSV negative. Chest x-ray does not show any obvious pneumonia. Patient did exhibit mild hypoxia for which she did require 2 L nasal cannula. Lower blood pressures the patient was mentating normally Patient was ordered additional IV fluids as the patient did have mild gallbladder ultrasound was negative. It is with the on-call hospital service Dr. Marinelli and the patient was admitted to the medicine service. Critical Care: I have personally spent 35 minutes of critical care time in direct management of this patient. This includes bedside care, interpretation of diagnostic studies, and testing, discussion with consultants, patient, and family members, and other require inpatient management activities. This 35 minutes is in excess of all separately billable procedures. Prior /Outside records reviewed: I did review discharge summary from Dr. Beckham from May 12, 2022. Patient is known history of COPD severe mitral regurg CVA gregg lung nodules and tobacco abuse who is had presented at that time due to concern for fever as well as hypoxemia. Patient did have associated COVID-19 infection with mild hypoxia and COPD exacerbation at that time. Differential diagnosis: Cardiac ischemia, aortic dissection, pulmonary embolism, pneumothorax, pneumonia, pericarditis, myocarditis, esophageal rupture, GERD, cholecystitis, pancreatitis, musculoskeletal, as well as other pathologies. Diagnostics, as interpreted by me: ECG: Sinus with short AK, rate of 85, wide QRS, right bundle branch block pattern, T wave inversion in V3 as well as inferiorly. Patient's EKG today does show new T wave inversion in V3 as well as T wave flattening in V4. T wave inversions inferiorly appear to be old and the patient has had progression from incomplete right bundle to complete right bundle branch block. Cardiac monitoring: An order was placed for continuous cardiac monitoring. The monitor shows a rate of 85 with sinus rhythm. Patient was placed on pulse oximetry Medical decision rules: Heart score, Wells score Imaging studies: See below HPI: Patient presents due to concern for chest pain that was right-sided occasionally sharp and constant beginning around 9 PM last evening. The patient has had productive cough with clear sputum. Known history of COPD quit in January. Patient denies any blood in the sputum. No known sick contacts or recent travel. Patient denies any shortness of breath at rest but does have exertional dyspnea which is new. Patient denies any leg swelling or calf pain. No history of DVT or PE. Patient does not take anything for symptoms at home. No falls or trauma. PAST MEDICAL HISTORY: See Below PAST SURGICAL HISTORY: See Below SOCIAL HISTORY: See Below HOME MEDICATIONS: See Below ALLERGIES: See Below VITALS: See Below PHYSICAL EXAMINATION: GENERAL: NAD, wearing a mask, non-toxic. Thin in appearance EYE EXAM: Normal conjunctiva. PERRL, no anisocoria and EOM's grossly intact w/o pain. NECK: Supple, no nuchal rigidity, no adenopathy, non-tender. No signs of meningismus. FROM of the neck with good chin to chest and neck extension. No stridor. LUNGS: Faint wheeze noted throughout. Normal chest wall mechanics. HEART: NSR, no MRG. ABDOMEN: Abdomen soft, non-tender, no masses, no rebound or guarding. BACK: No CVA TTP. SKIN: No rashes and no bruising. UPPER EXTREMITIES: Upper extremities are grossly normal. LOWER EXTREMITIES: Grossly normal, no edema. Negative Homans' sign bilaterally. NEURO EXAM: A&O x3, cranial nerves II-XII grossly intact, normal speech, moves all 4 extremities. Past Med/Surg History Medical History COVID Emphysema lung History of cigarette smoking Severe mitral regurgitation Surgical History No pertinent past surgical history Family History Denies family history of Ovarian cancer Prostate cancer Breast cancer Lung cancer Colorectal cancer Social History Smoking Status: Former smoker Tobacco Type: Cigarettes Age Started Using Tobacco: 17; Age Quit Using Tobacco: 85; packs per day: 1; Cigarettes Per Day: 1 PPD; Second Hand Exposure: No; Do You Dip or Chew Tobacco: No; Hx Alcohol Use: No Hx Substance Use: No Preferred Language: Guamanian Communication Ability: Effective Visual Impairment: No Limitations Hearing Ability: Normal Facilities Maintenance Engineer Required: No Beliefs That Will Affect Care: None marital status: Current Living Situation: Spouse 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 occupational 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 How many Children do You have: 1 Feels Safe at Home: Yes Childhood Exposure to Second-Hand Smoke: Yes Diet: regular caffeine: Yes Dental Care, Regularly: No Physical Activity Frequency: Daily Physical Activity Frequency Comment: watched her great granddaughter daily, active >90 min daily Seatbelt Use: always Sunscreen Use: No Assistive Devices: Denture - Upper Allergies Allergies Allergy/AdvReac Type Severity Reaction Status Date / Time No Known Allergies Allergy Verified 07/29/22 12:19 Home Meds Home Medications Medication Instructions Recorded Confirmed No Known Home Medications 06/03/21 08/22/22 Results & Data (ED) Vital Signs Vital Signs - 24 hr 08/22/22 09:27 08/22/22 10:02 08/22/22 10:21 Temperature 36.5 C Temperature Source Temporal Artery Scan Pulse Rate 89 83 Pulse Rate [Apical] Pulse Rhythm [Apical] Respiratory Rate 22 Respiratory Effort / Characteristics Non-Labored Respiratory Depth Normal Blood Pressure 110/66 Blood Pressure [Right Arm] Blood Pressure Mean 80 Blood Pressure Mean [Right Arm] Pulse Oximetry 97 95 Oxygen Delivery Method Room Air Room Air Sepsis Recent Fever Within 48 Hours No Sepsis New/Unexplained Change in Mental Status N/A Sepsis Action Taken by Nursing No Action Required 08/22/22 12:00 08/22/22 11:00 Temperature Temperature Source Pulse Rate Pulse Rate [Apical] 85 93 H Pulse Rhythm [Apical] Regular Respiratory Rate 24 22 Respiratory Effort / Characteristics Non-Labored Spontaneous Non-Labored Spontaneous Respiratory Depth Normal Normal Blood Pressure Blood Pressure [Right Arm] 98/51 L 100/49 L Blood Pressure Mean Blood Pressure Mean [Right Arm] 66 66 Pulse Oximetry 98 94 Oxygen Delivery Method Room Air Room Air Sepsis Recent Fever Within 48 Hours Sepsis New/Unexplained Change in Mental Status Sepsis Action Taken by Correction Medications Current Medication List: was personally reviewed by me Laboratory Data Attestation: I reviewed the patient's lab results. 08/22/22 10:15 08/22/22 10:15 Lab Results 08/22/22 08/22/22 08/22/22 Range/Units 10:15 10:15 10:15 WBC 11.63 H (4.8-10.8) K/ul RBC 4.16 L (4.20-5.40) M/uL Hgb 12.7 (12.0-16.0) g/dl Hct 38.1 (37.0-47.0) % MCV 91.6 (80.0-100.0) fL MCH 30.5 (25.0-34.0) pg MCHC 33.3 (32.0-36.0) g/dL RDW Std Deviation 48.1 H (36.4-46.3) fL RDW Coeff of Selena 14.3 (11.5-14.5) % Plt Count 189 (130-400) K/uL MPV 10.5 (9.4-12.4) fL Immature Gran % (Auto) 0.3 % Neut % (Auto) 79.5 % Lymph % (Auto) 8.4 % Desha % (Auto) 11.1 % Eos % (Auto) 0.3 % Baso % (Auto) 0.4 % Neut # (Auto) 9.24 H (1.40-6.50) K/uL Lymph # (Auto) 0.98 L (1.2-3.4) K/uL Desha # (Auto) 1.29 H (0.11-0.59) K/uL Eos # (Auto) 0.03 (0-0.50) K/uL Baso # (Auto) 0.05 (0-0.2) K/uL Immature Gran # (Auto) 0.04 (0.01-0.20) K/uL PT 12.3 H (9.0-12.0) Seconds INR 1.1 (0.9-1.1) APTT 29.0 (21.0-31.0) Seconds PTT Ratio 1.0 D-Dimer (0-500) ug/L FEU Sodium 134 L (136-145) mmol/L Potassium 3.6 (3.5-5.1) mmol/L Chloride 100 (98-107) mmol/L Carbon Dioxide 27 (21-32) mmol/L Anion Gap 7 (3-11) BUN 17 (6-23) mg/dl Creatinine 1.03 (0.6-1.2) mg/dl Est Cr Clr Drug Dosing Not Reportable Est GFR ( Amer) 57.4 ml/min Est GFR (Non-Af Amer) 49.5 ml/min BUN/Creatinine Ratio 16.5 (10-20) Glucose 109 H (70-99(Fasting)) mg/dl Calcium 9.1 (8.6-10.3) mg/dl Total Bilirubin 1.2 H (0.2-1.0) mg/dl AST 21 (13-39) U/L ALT 12 (7-52) U/L Alkaline Phosphatase 89 (34-104) U/L Troponin I High Sens 14.1 H (0-14) pg/ml Total Protein 7.0 (6.0-8.3) gm/dl Albumin 3.7 (3.4-5.0) gm/dl Globulin 3.3 (2.5-4.0) gm/dl Albumin/Globulin Ratio 1.1 (0.9-2) Lipase 17 (11-82) U/L SARS-CoV-2 (PCR) (Negative) Influenza Type A (PCR) (Neg) Influenza Type B (PCR) (Neg) RSV (RT-PCR) (Neg) 08/22/22 08/22/22 08/22/22 Range/Units 10:15 10:27 12:13 WBC (4.8-10.8) K/ul RBC (4.20-5.40) M/uL Hgb (12.0-16.0) g/dl Hct (37.0-47.0) % MCV (80.0-100.0) fL MCH (25.0-34.0) pg MCHC (32.0-36.0) g/dL RDW Std Deviation (36.4-46.3) fL RDW Coeff of Selena (11.5-14.5) % Plt Count (130-400) K/uL MPV (9.4-12.4) fL Immature Gran % (Auto) % Neut % (Auto) % Lymph % (Auto) % Desha % (Auto) % Eos % (Auto) % Baso % (Auto) % Neut # (Auto) (1.40-6.50) K/uL Lymph # (Auto) (1.2-3.4) K/uL Desha # (Auto) (0.11-0.59) K/uL Eos # (Auto) (0-0.50) K/uL Baso # (Auto) (0-0.2) K/uL Immature Gran # (Auto) (0.01-0.20) K/uL PT (9.0-12.0) Seconds INR (0.9-1.1) APTT (21.0-31.0) Seconds PTT Ratio D-Dimer 1620 H* (0-500) ug/L FEU Sodium (136-145) mmol/L Potassium (3.5-5.1) mmol/L Chloride (98-107) mmol/L Carbon Dioxide (21-32) mmol/L Anion Gap (3-11) BUN (6-23) mg/dl Creatinine (0.6-1.2) mg/dl Est Cr Clr Drug Dosing Est GFR ( Amer) ml/min Est GFR (Non-Af Amer) ml/min BUN/Creatinine Ratio (10-20) Glucose (70-99(Fasting)) mg/dl Calcium (8.6-10.3) mg/dl Total Bilirubin (0.2-1.0) mg/dl AST (13-39) U/L ALT (7-52) U/L Alkaline Phosphatase (34-104) U/L Troponin I High Sens 12.0 (0-14) pg/ml Total Protein (6.0-8.3) gm/dl Albumin (3.4-5.0) gm/dl Globulin (2.5-4.0) gm/dl Albumin/Globulin Ratio (0.9-2) Lipase (11-82) U/L SARS-CoV-2 (PCR) NEGATIVE (Negative) Influenza Type A (PCR) Negative (Neg) Influenza Type B (PCR) Negative (Neg) RSV (RT-PCR) Negative (Neg) Administered Medications Discontinued Medications Albuterol (Albut/Ipratrop 3mg/0.5mg Neb 3 Ml Vial) 6 ml NEB NOW STA; Protocol Stop: 08/22/22 10:02 Last Admin: 08/22/22 10:20 Dose: 6 ml Documented By: SUSY Aspirin (Aspirin Chew 324 Mg) 324 mg PO NOW STA Stop: 08/22/22 11:50 Last Admin: 08/22/22 12:10 Dose: 324 mg Documented By: SUSY Azithromycin (Azithromycin 250 Mg Tab) 500 mg PO NOW ONE Stop: 08/22/22 15:14 Last Admin: 08/22/22 16:13 Dose: 500 mg Documented By: DAREN Sodium Chloride (Nss) 500 mls @ 999 mls/hr IV .Q31M STA Stop: 08/22/22 10:31 Last Infusion: 08/22/22 12:06 Dose: 0 mls/hr Documented By: Admin: 08/22/22 11:30 Dose: 999 mls/hr Documented By: SUSY Magnesium Sulfate/Dextrose (Magnesium Sulfate / D5w) 1 gm in 100 mls @ 100 mls/hr IV NOW STA Stop: 08/22/22 11:02 Last Infusion: 08/22/22 11:22 Dose: 0 mls/hr Documented By: Admin: 08/22/22 10:22 Dose: 100 mls/hr Documented By: SUSY Sodium Chloride (Nss 1000ml) 1,000 mls @ 999 mls/hr IV .Q1H1M ONE Stop: 08/22/22 13:36 Last Infusion: 08/22/22 15:33 Dose: 0 mls/hr Documented By: Admin: 08/22/22 13:20 Dose: 999 mls/hr Documented By: SUSY Ioversol (Optiray 320 125ml) 119 ml IV ONCE ONE Stop: 08/22/22 15:04 Last Admin: 08/22/22 15:04 Dose: 119 ml Documented By: ERICA Lidocaine (Lidocaine 5% 1 Patch) 1 patch TD NOW STA Stop: 08/22/22 15:14 Last Admin: 08/22/22 16:13 Dose: 1 patch Documented By: RRHarjinder Methylprednisolone (Methylprednisolone 125 Mg/2 Ml Vial) 60 mg IV NOW STA Stop: 08/22/22 10:02 Last Admin: 08/22/22 10:17 Dose: 60 mg Documented By: Morphine Sulfate (Morphine Sulfate 2 Mg/Ml Carp) 2 mg IV NOW STA Stop: 08/22/22 11:19 Last Admin: 08/22/22 11:29 Dose: 2 mg Documented By: Imaging Data Radiologist's Impression: Chest X-Ray 08/22/22 10:02 XR chest 1V portable CLINICAL HISTORY: Chest pain, nonspecific TECHNIQUE: Single frontal radiograph of the chest was obtained. Comparison: Comparison is made to chest radiograph 06/23/2022 FINDINGS: No lines and tubes are seen. Cardiomegaly is noted. The aortic arch is calcified. The lungs are clear. No evidence of pleural effusion or pneumothorax. IMPRESSION: No acute chest disease. Cardiomegaly is noted. ACT 112: Negative or not required by law. Electronically signed by: Luisito Mercado M.D. 08/22/2022 10:36 AM Gallbladder Ultrasound 08/22/22 12:36 US gallbladder CLINICAL HISTORY: RUQ pain TECHNIQUE: Multiple real-time sonographic images of the right upper quadrant were obtained. Comparison: None available at the time of this dictation. FINDINGS: The liver is diffusely homogenous with normal contour and echogenicity. No focal mass lesions are seen. No intrahepatic ductal dilatation is seen. No wall thickening is seen. Cholesterol granuloma are noted in the wall. A phrygian cap is seen. A sonographic Barrios's sign was not elicited by the corporate legal manager. The common duct measures 0.4 cm in diameter at the level of the hepatic artery. The visualized portions of the pancreas appear normal. The right kidney shows normal echogenicity, cortical thickness and renal contour. The right kidney shows no evidence of hydronephrosis or mass. No ascites or free fluid is seen in Andres's pouch. IMPRESSION: No acute abnormalities and in particular no evidence of acute cholecystitis. ACT 112: Negative or not required by law. Electronically signed by: Luisito Mercado M.D. 08/22/2022 2:30 PM Discharge Plan Visit Data Chief Complaint: Chest Pain Stated Complaint: PAIN ON R SIDE, CHEST PAIN, BREATHING HEAVY ED Provider: Eddi Quinteros Discharge Problem: Acute respiratory failure with hypoxia, Elevated troponin, History of cigarette smoking, Atypical chest pain Patient Disposition: Admitted As Inpatient Discharge Instructions Interventions: ED Discharge Assessment Last Done: 08/22/22 13:46
[2022-08-22] MEDS ORDERED: SODIUM CHLORIDE 0.9% 500 ML IV STA (10:01)
[2022-08-22] MEDS ORDERED: ALBUT/IPRATROP 3MG/0.5MG NEB 3 ML VIAL NEB STA (10:01)
[2022-08-22] MEDS ORDERED: methylPREDNISolone 125 MG/2 ML VIAL IV STA (10:01)
[2022-08-22] MEDS ORDERED: MAGNESIUM SULFATE / D5W 1 GM/100 ML BAG IV STA (10:03)
--- NOTE | 2022-08-22 10:38 | XRay Report ---
XR chest 1V portable CLINICAL HISTORY: Chest pain, nonspecific TECHNIQUE: Single frontal radiograph of the chest was obtained. Comparison: Comparison is made to chest radiograph 06/23/2022 FINDINGS: No lines and tubes are seen. Cardiomegaly is noted. The aortic arch is calcified. The lungs are clear . No evidence of pleural effusion or pneumothorax. IMPRESSION: No acute chest disease. Cardiomegaly is noted. ACT 112: Negative or not required by law. Electronically signed by: Luisito Mercado M.D. 08/22/2022 10:36 AM
[2022-08-22 10:41] LABS: Basophils # (auto) 0.05 K/uL (0-0.2); Basophils % (auto) 0.4 %; Eosinophils # (auto) 0.03 K/uL (0-0.50); Eosinophils % (auto) 0.3 %; Hematocrit (blood only) 38.1 % (37.0-47.0); Hemoglobin 12.7 g/dl (12.0-16.0); Immature Granulocytes # (auto) 0.04 K/uL (0.01-0.20); Immature Granulocytes % (auto) 0.3 %; Lymphocytes # (auto) 0.98 K/uL (1.2-3.4); Lymphocytes % (auto) 8.4 %; Mean Corpuscular Hemoglobin 30.5 pg (25.0-34.0); Mean Corpuscular Hgb Conc 33.3 g/dL (32.0-36.0); Mean Corpuscular Volume 91.6 fL (80.0-100.0); Mean Platelet Volume 10.5 fL (9.4-12.4); Monocytes # (auto) 1.29 K/uL (0.11-0.59); Monocytes % (auto) 11.1 %; Neutrophils # (auto) 9.24 K/uL (1.40-6.50); Neutrophils % (auto) 79.5 %; Platelet Count 189 K/uL (130-400); RDW Coefficient of Variation 14.3 % (11.5-14.5); RDW Standard Deviation 48.1 fL (36.4-46.3); Red Blood Count 4.16 M/uL (4.20-5.40); White Blood Count 11.63 K/ul (4.8-10.8)
[2022-08-22 10:56] LABS: Alanine Aminotransferase 12 U/L (7-52); Albumin Globulin Ratio 1.1 (0.9-2); Albumin Level 3.7 gm/dl (3.4-5.0); Alkaline Phosphatase 89 U/L (34-104); Anion Gap 7 (3-11); Aspartate Aminotransferase 21 U/L (13-39); BUN Creatinine Ratio 16.5 (10-20); Bilirubin,Total 1.2 mg/dl (0.2-1.0); Blood Urea Nitrogen 17 mg/dl (6-23); Calcium 9.1 mg/dl (8.6-10.3); Carbon Dioxide 27 mmol/L (21-32); Chloride 100 mmol/L (98-107); Est GFR (African American) 57.4 ml/min; Est GFR (Non-African American) 49.5 ml/min; Globulin 3.3 gm/dl (2.5-4.0); Glucose 109 mg/dl (70-99(Fasting)); Lipase 17 U/L (11-82); Potassium 3.6 mmol/L (3.5-5.1); Sodium 134 mmol/L (136-145)
[2022-08-22 11:02] LABS: Troponin I High Sensitivity 14.1 pg/ml (0-14)
[2022-08-22] MEDS ORDERED: MoRPHine SULFATE 2 MG/ML CARP IV STA (11:18)
[2022-08-22 11:20] LABS: Influenza A virus by PCR Negative (Neg); Influenza B virus by PCR Negative (Neg); RSV by PCR Negative (Neg); SARS CoV2 RNA(COVID-19) Ceph NEGATIVE (Negative)
[2022-08-22 11:21] LABS: INR 1.1 (0.9-1.1); Prothrombin Time 12.3 Seconds (9.0-12.0)
[2022-08-22] MEDS ORDERED: ASPIRIN CHEW 324 MG PO STA (11:49)
[2022-08-22] MEDS ORDERED: SODIUM CHLORIDE 0.9% 1000ML 1,000 ML IV ONE (12:36)
--- NOTE | 2022-08-22 12:46 | History & Physical Report ---
Date of Service August 22, 2022 Assessment & Plan (1) Elevated troponin: Plan: Chest Pain, R sided, acute Patient reports that she has had ongoing pain focally in her right lower rib which does not feel much different with inspiration or palpation ongoing for over 12-16 hours at time of admission. With a minimally elevated of troponin 14.1 suspect that this is unlikely to be cardiac, but given T wave changes on EKG will complete cardiac eval including echo and troponin trend. Does have strong family history of diabetes and all family members except herself, heart attacks and multiple siblings as early as age 40 -EKG: Sinus, right bundle branch block, [place] 108, no ST segment changes, nonspecific T wave changes EKG: Sinus, nonspecific T wave changes, incomplete right bundle branch block Leukocytosis of 11.63 on admission High-sensitivity troponin 14.1, repeat pending Chest x-ray: No acute finding Received aspirin full dose on arrival to ER No leg swelling, no calf asymmetry, no edema Reports she has a mild increase in right lower rib pain on deep inspiration, and is requiring 2 L of oxygen to maintain O2 sat of 95% with no baseline oxygen requirement. Will obtain D-dimer to R/oh PE, follow-up CTA if positive Acute hypoxic respiratory failure, COPD/history of emphysema, differential includes acute exacerbation of chronic COPD - Former tobacco use Does not use any daily inhalers Endorses increased wheezing day prior to admission. While she is not wheezing at time of hospitalist admission evaluation, she did receive a albuterol nebulizer and methylprednisolone 60 mg. She does not endorse 1 additional day of wheezing, although no increased cough or sputum change. DDx does include mild acute on chronic COPD exacerbation, with no known baseline inhalers. Given clinical improvement following steroid/albuterol and hypoxia, will treat conservatively as suspected underlying COPD with 5-day course of steroids total, azithromycin 5-day course, nebs as needed. Recommend following as outpatient for PFTs, and initiation of regular control inhalers if indicated based on staging DVT prophylaxis: Lovenox Diet: Regular Disposition: Medical telemetry for cardiac rule out CODE STATUS: DNR/DNI, discussed with patient at bedside (2) Emphysema lung: (3) History of cigarette smoking: (4) Acute respiratory failure with hypoxia: History of Present Illness Primary Care Provider: Caty Rabago MD Sandra is a 87-year-old female with past medical history of COPD, chorea, tobacco use, mitral regurg, past COVID who presents to the emergency department for sharp right-sided chest pain which began around 9 PM evening prior to admission. R lower rib discomfort x1 day, pretty constant Cough at baseline, brings up clear/white phlegm a few times a day No fevers, chills, sweats No shortness of breath at bedside Had shortness of breath last night which was different from normal. Does not normally need oxygen, no home o2 requirement\ +increased wheezing last 2 days at least No home medical problems. Takes no home medications. Gets intermittent pain No personal of fhx of HTN. PT denies personal hx of HTN. Sister had a LA at ~40s. Brother had a LA in 40s-50s. FHX DM2 in 5/6 sibglings Pt with hx of COPD, no hx of inhaler use No orthopnea or swelling +slightly increased pain on deep inspiration Medical History: Reviewed Medications: Reviewed. Surgical History: Reviewed Family history: Reviewed Allergies: Reviewed Social History:No tobacco product use, former smoker quit after vodi. No etoh use. Code Status: DNR/DNI. Allergies Allergy/AdvReac Type Severity Reaction Status Date / Time No Known Allergies Allergy Verified 07/29/22 12:19 Home Medications Medication Instructions Recorded Confirmed Type No Known Home Medications 06/03/21 07/29/22 History Past Med/Surg History Medical History COVID Emphysema lung History of cigarette smoking Severe mitral regurgitation Surgical History No pertinent past surgical history Family History Denies family history of Ovarian cancer Prostate cancer Breast cancer Lung cancer Colorectal cancer Social History Smoking Status: Former smoker Tobacco Type: Cigarettes Age Started Using Tobacco: 17; Age Quit Using Tobacco: 85; packs per day: 1; Cigarettes Per Day: 1 PPD; Second Hand Exposure: No; Do You Dip or Chew Tobacco: No; Hx Alcohol Use: No Hx Substance Use: No Preferred Language: Sri Lankan Communication Ability: Effective Visual Impairment: No Limitations Hearing Ability: Normal Security Incident Response Engineer Required: No Beliefs That Will Affect Care: None marital status: Current Living Situation: Spouse 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 NAD. Cooperative. HEENT: Atraumatic, normocephalic. Vision/hearing grossly Pulm: CTAB A&P. -wheezes, -rales, -rhonchi. Symmetrical chest rise. No increased work of breathing. No respiratory distress. Minimal pain elicited on palpation of right lower anterior and lateral ribs Cardiac: RRR, systolic murmur. Radial pulses intact and symmetrical. No JVD Abdominal: Nontender, nondistended, soft. BS present. Barrios's negative Extremities: Warm, dry. No calf asymmetry. No pitting edema Results & Data Results & Data Vital Signs (Past 12 Hours) Vital Signs Temp Pulse Resp BP Pulse Ox O2 Del Method 08/22/22 10:21 83 08/22/22 10:02 95 Room Air 08/22/22 09:27 36.5 C 89 22 110/66 97 Room Air PG Care Time/CCT Total # of Minutes Spent Total Time Spent with Patient: Total time spent is greater than 50% in coordination of care (as documented) at patient's floor/unit and/or counseling patient: Coding Level of Care Code 19561 INT INP/OBS CARE 3/75MIN Diagnoses Elevated troponin R77.8 Emphysema lung J43.9 History of cigarette smoking Z87.891 Acute respiratory failure with hypoxia J96.01
[2022-08-22 14:23] LABS: D Dimer 1620 ug/L FEU (0-500)
--- NOTE | 2022-08-22 14:32 | Ultrasound Report ---
US gallbladder CLINICAL HISTORY: RUQ pain TECHNIQUE: Multiple real-time sonographic images of the right upper quadrant were obtained. Comparison: None available at the time of this dictation. FINDINGS: The liver is diffusely homogenous with normal contour and echogenicity. No focal mass lesions are see n. No intrahepatic ductal dilatation is seen. No wall thickening is seen. Cholesterol granuloma a re noted in the wall. A phrygian cap is seen. A sonographic Barrios's sign was not elicited by the son ographer. The common duct measures 0.4 cm in diameter at the level of the hepatic artery. The visu alized portions of the pancreas appear normal. The right kidney shows normal echogenicity, cortical thickness and renal contour. The right kidney sh ows no evidence of hydronephrosis or mass. No ascites or free fluid is seen in Andres's pouch. IMPRESSION: No acute abnormalities and in particular no evidence of acute cholecystitis. ACT 112: Negative or not required by law. Electronically signed by: Luisito Mercado M.D. 08/22/2022 2:30 PM
[2022-08-22] MEDS ORDERED: OPTIRAY 320 125ml IV ONE (15:03)
[2022-08-22] MEDS ORDERED: LIDOCAINE 5% 1 PATCH TD STA (15:13)
[2022-08-22] MEDS ORDERED: MoRPHine SULFATE 2 MG/ML CARP IV PRN (15:13)
[2022-08-22] MEDS ORDERED: AZITHROMYCIN 250 MG TAB PO ONE (15:13)
[2022-08-22] MEDS ORDERED: ALBUT/IPRATROP 3MG/0.5MG NEB 3 ML VIAL NEB PRN (15:13)
--- NOTE | 2022-08-22 15:30 | CT Scan Report ---
CT angio chest PE protocol CLINICAL HISTORY: PE TECHNIQUE: Multidetector row helical CT of the chest was performed with angiographic protocol. Eaton l and sagittal reformations were obtained. Coronal and sagittal MIPS were obtained from the axial teagan a set and were submitted for review. Automated dose lowering techniques and/or adjustment according to patient size were utilized for this exam. CT DOSE: 215.08 mGy.cm Comparison: Comparison is made to CT thorax 05/11/2022 FINDINGS: Lungs and pleura: Emphysema and bronchial wall thickening are seen. Faint airspace opacities are seen in the right lung. Heart and pericardium: Cardiomegaly is seen with biatrial enlargement. Mitral annular calcification i s seen. Vessels: No evidence of pulmonary embolism. Mediastinum and jalyn: Subcentimeter lymph nodes are seen. Chest wall and lower neck: Unremarkable. Abdomen: Unremarkable. Bones: Degenerative changes in the thoracic spine. IMPRESSION: 1. No pulmonary embolus is seen. 2. Prominent cardiomegaly is again seen. 3. A few foci of pneumonia are noted in the right lung. 4. Emphysema. ACT 112: Negative or not required by law. Electronically signed by: Luisito Mercado M.D. 08/22/2022 3:27 PM
--- NOTE | 2022-08-22 17:59 | Electrocardiogram Report ---
Test Reason : Blood Pressure : / mmHG Vent. Rate : 085 BPM Atrial Rate : 085 BPM P-R Int : 108 ms QRS Dur : 130 ms QT Int : 400 ms P-R-T Axes : 115 060 096 degrees QTc Int : 476 ms Sinus rhythm with short WV Right bundle branch block T wave abnormality, consider inferior ischemia Abnormal ECG When compared with ECG of 23-JUN-2022 15:22, Premature atrial complexes are no longer Present WV interval has decreased Right bundle branch block has replaced Incomplete right bundle branch block Confirmed by Jomar Hdz ([id number]) on 08/22/2022 5:59:10 PM Referred By: REFERRED SELF Confirmed By:Jomar Hdz
--- NOTE | 2022-08-22 22:44 | XCELERA ---
[id number]
[2022-08-23 02:56] LABS: Basophils # (auto) 0.01 K/uL (0-0.2); Basophils % (auto) 0.1 %; Hematocrit (blood only) 34.4 % (37.0-47.0); Hemoglobin 11.5 g/dl (12.0-16.0); Immature Granulocytes # (auto) 0.06 K/uL (0.01-0.20); Immature Granulocytes % (auto) 0.6 %; Lymphocytes # (auto) 0.62 K/uL (1.2-3.4); Lymphocytes % (auto) 6.1 %; Mean Corpuscular Hemoglobin 30.7 pg (25.0-34.0); Mean Corpuscular Hgb Conc 33.4 g/dL (32.0-36.0); Mean Platelet Volume 10.3 fL (9.4-12.4); Monocytes # (auto) 0.63 K/uL (0.11-0.59); Monocytes % (auto) 6.2 %; Neutrophils # (auto) 8.82 K/uL (1.40-6.50); Platelet Count 198 K/uL (130-400); RDW Coefficient of Variation 14.1 % (11.5-14.5); RDW Standard Deviation 47.2 fL (36.4-46.3); Red Blood Count 3.74 M/uL (4.20-5.40); White Blood Count 10.14 K/ul (4.8-10.8)
[2022-08-23 03:11] LABS: BUN Creatinine Ratio 21.4 (10-20); Calcium 8.9 mg/dl (8.6-10.3); Creatinine Clr Calc Pharmacy 30.1 ml/min; Est GFR (Non-African American) 52.6 ml/min; Potassium 3.7 mmol/L (3.5-5.1)
--- NOTE | 2022-08-23 08:07 | Hospitalist Progress Note ---
Date of Service August 23, 2022 Assessment & Plan (1) Elevated troponin: Plan: Chest Pain, R sided, acute, d dimer elevated CTA neg for PE atypical for acs, inital troponins without trend, T wave changes on EKG will complete cardiac eval including echo . Does have strong family history of diabetes and all family members except herself, heart attacks and multiple siblings as early as age 42 Received aspirin full dose on arrival to ER Acute on chronic respiratory failure, no documented hypoxia, former tobacco user Endorses increased wheezing day prior to admission, she did receive a albuterol nebulizer and methylprednisolone 60 mg. no increased cough or sputum change. Given suggested pneumonia on CTA, however sligt if present by my read, will continue po azithromycin, steroid taper and arrange pulmonary follow up post dc DVT prophylaxis: Lovenox Diet: Regular CODE STATUS: DNR/DNI, discussed with patient at bedside Admission and Anticipated Discharge Date Admission Date: August 22, 2022 Results & Data Results & Data Vital Signs (Past 12 Hours) Vital Signs Temp Pulse Pulse Resp BP Pulse Ox O2 Del Method 08/23/22 07:56 98.1 F 82 16 102/64 94 Room Air 08/23/22 07:15 75 08/23/22 03:29 98.1 F 69 18 101/61 96 Room Air 08/22/22 23:01 97.7 F 76 20 110/61 92 Room Air 08/22/22 22:00 81 08/22/22 20:45 72 18 99 Room Air PG Care Time/CCT Total # of Minutes Spent Total Time Spent with Patient: Total time spent is greater than 50% in coordination of care (as documented) at patient's floor/unit and/or counseling patient: Coding Diagnoses Elevated troponin R77.8
[2022-08-23] MEDS ORDERED: predniSONE 20 MG TAB PO SCH (09:00)
--- NOTE | 2022-08-23 13:37 | Discharge Summary ---
Date of Service August 23, 2022 Admission HPI Per Admitting Provider Sandra is a 87-year-old female with past medical history of COPD, chorea, tobacco use, mitral regurg, past COVID who presents to the emergency department for sharp right-sided chest pain which began around 9 PM evening prior to admission. R lower rib discomfort x1 day, pretty constant Cough at baseline, brings up clear/white phlegm a few times a day No fevers, chills, sweats No shortness of breath at bedside Had shortness of breath last night which was different from normal. Does not normally need oxygen, no home o2 requirement\ +increased wheezing last 2 days at least No home medical problems. Takes no home medications. Gets intermittent pain No personal of fhx of HTN. PT denies personal hx of HTN. Sister had a ME at ~40s. Brother had a ME in 40s-50s. FHX DM2 in 5/6 sibglings Pt with hx of COPD, no hx of inhaler use No orthopnea or swelling +slightly increased pain on deep inspiration Medical History: Reviewed Medications: Reviewed. Surgical History: Reviewed Family history: Reviewed Allergies: Reviewed Social History:No tobacco product use, former smoker quit after vodi. No etoh use. Code Status: DNR/DNI. Principal Diagnosis Atypical chest pain Mitral regurgitation COPD exacerbation Discharge Exam Patient has cardiac murmur otherwise her lungs are clear with prolonged expiratory phase with no wheezes or focal air loss no signs of heart failure Discharge Data Allergies Allergy/AdvReac Type Severity Reaction Status Date / Time No Known Allergies Allergy Verified 07/29/22 12:19 Consultations 08/22/22 11:39 ED Decision to Admit Stat Ordered Studies 08/22/22 12:36 US gallbladder Stat 08/22/22 14:33 CT angio chest PE protocol Stat Hospital Course (1) Elevated troponin: Chest Pain, R sided, acute, d dimer elevated CTA neg for PE atypical for acs, inital troponins without trend, T wave changes on EKG Echo shows no new changes from April 2022 but 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 regurgitation with left atrial dilatation Patient currently not showing signs of volume overload patient was not diuretic, typically the patient is on any medications consider follow-up with director of public health to continue to watch for effects of mitral regurgitation Does have strong family history of diabetes and all family members except herself, heart attacks and multiple siblings as early as age 42 Received aspirin full dose on arrival to ER, aspirin not continued on discharge Acute on chronic respiratory failure, no documented hypoxia, former tobacco user Endorses increased wheezing day prior to admission, she did receive a albuterol nebulizer and methylprednisolone 60 mg with dramatic improvement of her pulmonary status Given suggested pneumonia on CTA, however slight if present by my read, will continue po azithromycin, steroid taper and arrange pulmonary follow up post dc Patient discharged on Advair azithromycin and as needed albuterol and tapering dose of prednisone CODE STATUS: DNR/DNI, discussed with patient at bedside Total Time Total Time Spent Total Time Spent (In Minutes): It required greater than 30 minutes to prepare this patient for discharge Discharge Plan Discharge Items Patient Disposition: Home - Self-Care Reason For Visit: PAIN ON R SIDE, CHEST PAIN, BREATHING HEAVY Discharge Diagnosis: COPD exacerbation Pleuritic chest pain noncardiac Activity: Resume your previous activity Non-emergency contact: Primary Care Provider Call non-emergency contact if: your symptoms worsen Follow-up/Referrals: Caty Rabago MD [Primary Care Provider] - Diet: Regular Addtl Attending Provider Instructions: Go to be given a tapering dose of prednisone therapy and inhaler to take twice a day no matter what place inhaler to take as needed We recommend you follow-up with your primary care physician and consider referral to wildland fire operations specialist to maximize your treatment of your COPD Will be given antibiotic to complete to treat bronchitis If you notice any change in the amount of mucus to cough up with the color of the mucus you cough up please contact your primary care provider immediately Pending Studies at Discharge: No Stand-Alone Forms: My [facility], Smoking Cessation Medications and DC Order Prescriptions: New azithromycin 250 mg Tablet 250 mg PO Q24H Qty: 4 0RF prednisone 10 mg tablet 10 mg PO DIRECTED Qty: 24 0RF Rx Instructions: 3 a day x 4 d>2 a day x 4 d>1 a day fluticasone propion-salmeterol [Advair Diskus] 100-50 mcg/dose blister with device 1 inh inhalation BID Qty: 60 2RF albuterol sulfate 90 mcg/actuation HFA aerosol inhaler 1 inh inhalation Q6H PRN (Reason: shortness of breath or wheezing) Qty: 6.7 0RF No Action No Known Home Medications Discharge Orders: Discharge Order (Routine); Ordered 08/23/22 Ordered By: Mejia Hernandez Admission Data Admit Date/Time: 08/22/22 12:58 Attending Provider: Mejia Hernandez Admit Provider: Cooper Marinelli Primary Care Provider: Caty Rabago Other Providers: Cooper Marinelli Coding Level of Care Code 40092 INP/OBS DISCH >30 MIN Diagnoses Elevated troponin R77.8
[2022-08-23] MEDS ORDERED: AZITHROMYCIN 250 MG TAB PO SCH (14:00)
== END 2022-08-23 14:22 | disposition home or self-care (01) ==
LOC: 2N 09:14 → ED 09:14 → SUATTDRO 12:58 → 2N 13:46

== ENCOUNTER 2023-02-22 22:18 | Observation (INO) ==
[2023-02-22 23:11] LABS: Basophils # (auto) 0.05 K/uL (0.00-0.20); Basophils % (auto) 0.6 %; Eosinophils # (auto) 0.02 K/uL (0.00-0.50); Eosinophils % (auto) 0.2 %; Hemoglobin 12.2 g/dl (12.0-16.0); Immature Granulocytes # (auto) 0.07 K/uL (0.01-0.20); Immature Granulocytes % (auto) 0.8 %; Lymphocytes # (auto) 1.14 K/uL (1.20-3.40); Lymphocytes % (auto) 12.9 %; Mean Corpuscular Hemoglobin 28.5 pg (25.0-34.0); Mean Corpuscular Hgb Conc 31.3 g/dL (32.0-36.0); Mean Corpuscular Volume 91.1 fL (80.0-100.0); Mean Platelet Volume 11.3 fL (9.4-12.4); Monocytes # (auto) 0.52 K/uL (0.11-0.59); Monocytes % (auto) 5.9 %; Neutrophils # (auto) 7.03 K/uL (1.40-6.50); Neutrophils % (auto) 79.6 %; Platelet Count 126 K/uL (130-400); RDW Coefficient of Variation 16.8 % (11.5-14.5); RDW Standard Deviation 55.2 fL (36.4-46.3); Red Blood Count 4.28 M/uL (4.20-5.40); White Blood Count 8.83 K/ul (4.8-10.8)
[2023-02-22 23:16] LABS: Base Excess VBG 0.1 mEq/L; HCO3 VBG 25 mmol/L; Oxygen Saturation VBG < 60.0 %; PCO2 VBG 39 mmHg (38-50); PO2 VBG 34 mmHg; pH VBG 7.41 (7.36-7.41)
[2023-02-22 23:27] LABS: Alanine Aminotransferase 31 U/L (7-52); Albumin Globulin Ratio 1.4 (0.9-2); Albumin Level 3.6 gm/dl (3.4-5.0); Alkaline Phosphatase 64 U/L (34-104); Anion Gap 10 (3-11); Aspartate Aminotransferase 41 U/L (13-39); BUN Creatinine Ratio 17.6 (10-20); Bilirubin,Total 2.1 mg/dl (0.2-1.0); Blood Urea Nitrogen 24 mg/dl (6-23); Calcium 9.2 mg/dl (8.6-10.3); Carbon Dioxide 22 mmol/L (21-32); Chloride 106 mmol/L (98-107); Est GFR (Non-African American) 35.4 ml/min; Globulin 2.5 gm/dl (2.5-4.0); Glucose 209 mg/dl (70-99(Fasting)); Magnesium 1.9 mg/dl (1.7-2.4); Sodium 138 mmol/L (136-145); Total Protein 6.1 gm/dl (6.0-8.3)
[2023-02-22 23:33] LABS: Troponin I High Sensitivity 49.8 pg/ml (0-14)
--- NOTE | 2023-02-22 23:40 | Emergency Department Note ---
Impression & Plan Acute dyspnea, Heart failure, Acute exacerbation of CHF (congestive heart failure), Non-ST elevation IN (NSTEMI), SHERI (acute kidney injury), Influenza A ED Provider Note HISTORY OF PRESENT ILLNESS: This patient is an 87-year-old female presenting with shortness of breath and lower extremity edema. Patient reports that she has been having increasing shortness of breath and swelling in her lower legs for the last 2 months, but most notably worse in the last week. She does not wear any supplemental oxygen at baseline. Denies any DVT or PE history. She is not on any anticoagulation. She reports has been using her inhalers at home with little relief in her symptoms. She is short of breath both at rest and with exertion. She denies any history of cardiac stents. Denies any history of heart failure and is not on any diuretics. Denies any fevers. Reports a cough productive of white sputum. ROS: as above PHYSICAL EXAM: Constitutional: Patient appears in no acute distress. HENT: Head: Normocephalic and atraumatic. Eyes: EOMI, PERRL Mouth/Throat: Mucous membranes moist. Neck: Trachea midline. Neck supple. Cardiovascular: Tachycardic with regular rhythm. No murmurs, rubs or gallops. Intact distal pulses. Pulmonary/Chest: No respiratory distress. Breath sounds clear and equal bilaterally. No wheezes or rales. Abdominal: Abdomen soft, no tenderness, rebound or guarding. Musculoskeletal: No tenderness or deformity noted. Traced edema of bilateral feet extending to ankles. Skin: Warm and dry. No rash, erythema, pallor or cyanosis Psychiatric: Appropriate mood and affect for situation. Neurological: Alert and keenly responsive. CN II-XII grossly intact, moving all extremities equally and fully. MDM: - Vitals signs showed hypoxia. - History obtained via patient. Patient presents with shortness of breath and lower extremity edema. Reports increasing shortness of breath over the last 2 months, but worse in the last 2 weeks. Has had increasing lower extremity edema. No history of cardiac stents, DVT or PE history. Not on any anticoagulation or diuretics. Denies any fevers - Chronic conditions affecting care: COPD - Differential diagnoses include, but are not limited to: Congestive heart failure; acute coronary syndrome; COPD/asthma exacerbation; pulmonary edema; pulmonary embolism; pneumonia; pneumothorax; viral syndrome ] - Order placed for continuous cardiac monitoring. At this time, monitor showed rate of 80 bpm with normal sinus rhythm, per my interpretation. - External medical records reviewed. Patient had an echocardiogram done on 08/22/2022 which showed an EF of 60 to 65%. - EKG interpreted by myself showed normal sinus rhythm. Rate 78 bpm. QTc 465. No acute ischemic changes. Noted to have a right bundle branch block. Previous EKG from July 2022 does show the right bundle branch block - Laboratory workup interpreted by myself showed normal WBC; stable electrolytes; SHERI (Cr 1.36 - recent creatinine a few months ago 0.9); elevated troponin (49.8); elevated BNP (3463) - CXR showed some perihilar vascular congestion, per my interpretation - 80 mg IV lasix ordered. - Viral respiratory panel positive for influenza A. - Patient on a new oxygen requirement. Given her new O2 requirement and need for admission, given a dose of Tamiflu. Discussed case with pharmacist who stated that given patient's SHERI and her weight, recommended dose is 30 mg once a day. - Discussion was had with healthcare representative about patient's case and need for admission - Hospitalist, Dr. Conte, consulted for admission - Patient admitted to [facility] Hospitalist service for further evaluation and management. ASSESSMENT AND PLAN: Diagnosis: dyspnea; new heart failure; CHF exacerbation; NSTEMI; influenza A; SHERI Plan: admit Past Med/Surg History Medical History COVID Emphysema lung History of cigarette smoking Severe mitral regurgitation Surgical History No pertinent past surgical history Family History Denies family history of Ovarian cancer Prostate cancer Breast cancer Lung cancer Colorectal cancer Social History Smoking Status: Former smoker Tobacco Type: Cigarettes Age Started Using Tobacco: 17; Age Quit Using Tobacco: 85; packs per day: 1; Cigarettes Per Day: 1 PPD; Second Hand Exposure: No; Do You Dip or Chew Tobacco: No; Hx Alcohol Use: No Hx Substance Use: No Preferred Language: Arabic Communication Ability: Effective Visual Impairment: No Limitations Hearing Ability: Normal Executive Marketing Assistant Required: No Beliefs That Will Affect Care: None marital status: Current Living Situation: Family Current Living Situation Comment: Lives with Michel, daughter Charu, and grandson Eddi current occupational 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 How many Children do You have: 1 Feels Safe at Home: Yes Childhood Exposure to Second-Hand Smoke: Yes Diet: regular caffeine: Yes Dental Care, Regularly: No Physical Activity Frequency: Daily Physical Activity Frequency Comment: watched her great granddaughter daily, active >90 min daily Seatbelt Use: always Sunscreen Use: No Assistive Devices: None Allergies Allergies Allergy/AdvReac Type Severity Reaction Status Date / Time No Known Allergies Allergy Verified 02/01/23 10:19 Home Meds Previous Rx's Medication Instructions Recorded albuterol sulfate 90 mcg/actuation 1 inh inhalation Q6H PRN shortness 08/23/22 aerosol inhaler of breath or wheezing #6.7 grams umeclidinium 62.5 mcg-vilanterol 1 inh inhalation DAILY #60 ea 01/26/23 25 mcg/actuation powdr for inhalation (Anoro Ellipta) dextromethorphan-guaifenesin 10 10 ml PO Q4H PRN cough #500 mL 02/01/23 mg-100 mg/5 mL oral liquid Results & Data (ED) Vital Signs Vital Signs - 24 hr 02/22/23 22:22 02/22/23 22:39 02/22/23 22:40 Temperature 36.2 C L Temperature Source Temporal Artery Scan Pulse Rate 101 H Pulse Rate [Apical] 96 H Respiratory Rate 18 28 H Respiratory Effort / Characteristics Non-Labored Respiratory Depth Normal Normal Blood Pressure 111/71 Blood Pressure [Right Arm] 120/81 Blood Pressure Mean 84 Blood Pressure Mean [Right Arm] 94 Pulse Oximetry 94 87 L 95 Oxygen Delivery Method Room Air Nasal Cannula Nasal Cannula Oxygen Flow Rate 0 Sepsis Recent Fever Within 48 Hours No Sepsis New/Unexplained Change in Mental Status No Sepsis Action Taken by Nursing No Action Required Oxygen Flow Rate - Titration 3 Pulse Oximetry Post Tiitration 95 02/22/23 22:40 02/23/23 00:13 Temperature Temperature Source Pulse Rate 93 H Pulse Rate [Apical] 80 Respiratory Rate 24 Respiratory Effort / Characteristics Non-Labored Respiratory Depth Normal Blood Pressure Blood Pressure [Right Arm] 120/81 Blood Pressure Mean Blood Pressure Mean [Right Arm] 94 Pulse Oximetry 95 Oxygen Delivery Method Nasal Cannula Oxygen Flow Rate 2 Sepsis Recent Fever Within 48 Hours Sepsis New/Unexplained Change in Mental Status Sepsis Action Taken by Nursing Oxygen Flow Rate - Titration Pulse Oximetry Post Tiitration Laboratory Data 02/22/23 22:50 02/22/23 22:50 Lab Results 02/22/23 02/22/23 02/22/23 Range/Units 22:42 22:50 23:10 WBC 8.83 (4.8-10.8) K/ul RBC 4.28 (4.20-5.40) M/uL Hgb 12.2 (12.0-16.0) g/dl Hct 39.0 (37.0-47.0) % MCV 91.1 (80.0-100.0) fL MCH 28.5 (25.0-34.0) pg MCHC 31.3 L (32.0-36.0) g/dL RDW Std Deviation 55.2 H (36.4-46.3) fL RDW Coeff of Selena 16.8 H (11.5-14.5) % Plt Count 126 L (130-400) K/uL MPV 11.3 (9.4-12.4) fL Immature Gran % (Auto) 0.8 % Neut % (Auto) 79.6 % Lymph % (Auto) 12.9 % [place] % (Auto) 5.9 % Eos % (Auto) 0.2 % Baso % (Auto) 0.6 % Neut # (Auto) 7.03 H (1.40-6.50) K/uL Lymph # (Auto) 1.14 L (1.20-3.40) K/uL [place] # (Auto) 0.52 (0.11-0.59) K/uL Eos # (Auto) 0.02 (0.00-0.50) K/uL Baso # (Auto) 0.05 (0.00-0.20) K/uL Immature Gran # (Auto) 0.07 (0.01-0.20) K/uL PT Cancelled INR Cancelled VBG pH 7.41 (7.36-7.41) VBG pCO2 39 (38-50) mmHg VBG pO2 34 mmHg VBG HCO3 25 mmol/L VBG O2 Saturation < 60.0 % VBG Base Excess 0.1 mEq/L Sodium 138 (136-145) mmol/L Potassium 4.0 (3.5-5.1) mmol/L Chloride 106 (98-107) mmol/L Carbon Dioxide 22 (21-32) mmol/L Anion Gap 10 (3-11) BUN 24 H (6-23) mg/dl Creatinine 1.36 H (0.6-1.2) mg/dl Est Cr Clr Drug Dosing Not Reportable Est GFR ( Amer) 41.0 ml/min Est GFR (Non-Af Amer) 35.4 ml/min BUN/Creatinine Ratio 17.6 (10-20) Glucose 209 H (70-99(Fasting)) mg/dl Calcium 9.2 (8.6-10.3) mg/dl Magnesium 1.9 (1.7-2.4) mg/dl Total Bilirubin 2.1 H (0.2-1.0) mg/dl AST 41 H (13-39) U/L ALT 31 (7-52) U/L Alkaline Phosphatase 64 (34-104) U/L Troponin I High Sens 49.8 H (0-14) pg/ml B-Natriuretic Peptide 3463 H (0-100) pg/ml Total Protein 6.1 (6.0-8.3) gm/dl Albumin 3.6 (3.4-5.0) gm/dl Globulin 2.5 (2.5-4.0) gm/dl Albumin/Globulin Ratio 1.4 (0.9-2) Nasal Influ A H1 2008 PCR DETECTED A* (NotDetected) Adenovirus (PCR) Not Detected (NotDetected) B. pertussis DNA (PCR) Not Detected (NotDetected) B.parapertussis DNA PCR Not Detected (NotDetected) C. pneumoniae DNA (PCR) Not Detected (NotDetected) Coronavirus OC43 (PCR) Not Detected (NotDetected) Coronavirus HKU1 (PCR) Not Detected (NotDetected) Coronavirus 229E (PCR) Not Detected (NotDetected) SARS-CoV-2 (PCR) Not Detected (NotDetected) Coronavirus NL63 (PCR) Not Detected (NotDetected) Human Metapneumovir PCR Not Detected (NotDetected) Influenza Type B (PCR) Not Detected (NotDetected) M. pneumoniae (PCR) Not Detected (NotDetected) Parainfluenza 1 (PCR) Not Detected (NotDetected) Parainfluenza 2 (PCR) Not Detected (NotDetected) Parainfluenza 3 (PCR) Not Detected (NotDetected) Parainfluenza 4 (PCR) Not Detected (NotDetected) RSV (PCR) Not Detected (NotDetected) Entero/Rhino (PCR) Not Detected (NotDetected) Administered Medications Discontinued Medications Furosemide (Furosemide 40 Mg/4 Ml Vial) 80 mg IV ONE ONE Stop: 02/22/23 23:44 Last Admin: 02/22/23 23:57 Dose: 80 mg Documented By: ARIEL Discharge Plan Visit Data Chief Complaint: Shortness of Breath/Dyspnea Stated Complaint: DIFFICULTY BREATHING, LOWER EXTREMITY EDEMA ED Provider: Flavia Hayes Discharge Problem: Acute dyspnea, Heart failure, Acute exacerbation of CHF (congestive heart failure), Non-ST elevation IN (NSTEMI), SHERI (acute kidney injury), Influenza A Forms Stand Alone Forms: My [facility] Prescriptions Prescriptions: No Action Anoro Ellipta 62.5-25 mcg/actuation blister with device 1 inh inhalation DAILY Qty: 60 3RF dextromethorphan-guaifenesin 10-100 mg/5 mL liquid 10 ml PO Q4H PRN (Reason: cough) Qty: 500 0RF albuterol sulfate 90 mcg/actuation HFA aerosol inhaler 1 inh inhalation Q6H PRN (Reason: shortness of breath or wheezing) Qty: 6.7 0RF Referrals Referrals: Caty Rabago MD [Primary Care Provider] -
[2023-02-22] MEDS ORDERED: FUROSEMIDE 40 MG/4 ML VIAL IV ONE (23:43)
[2023-02-22 23:51] LABS: Adenovirus PCR Not Detected (NotDetected); Bordetella parapertussis PCR Not Detected (NotDetected); Bordetella pertussis PCR Not Detected (NotDetected); Chlamydia pneumoniae PCR Not Detected (NotDetected); Coronavirus 229E PCR Not Detected (NotDetected); Coronavirus CoV-2 (COVID19)PCR Not Detected (NotDetected); Coronavirus HKU1 PCR Not Detected (NotDetected); Coronavirus NL63 PCR Not Detected (NotDetected); Coronavirus OC43PCR Not Detected (NotDetected); Human Metapneumovirus PCR Not Detected (NotDetected); Influenza B PCR Not Detected (NotDetected); Mycoplasma pneumoniae PCR Not Detected (NotDetected); Parainfluenza Virus 1 PCR Not Detected (NotDetected); Parainfluenza Virus 2 PCR Not Detected (NotDetected); Parainfluenza Virus 3 PCR Not Detected (NotDetected); Parainfluenza Virus 4 PCR Not Detected (NotDetected); Respiratory Syncytial VirusPCR Not Detected (NotDetected); Rhinovirus/Enterovirus PCR Not Detected (NotDetected)
[2023-02-22 23:52] LABS: Influenza A (H1 2009) PCR DETECTED (NotDetected)
[2023-02-23 00:47] LABS: INR 1.4 (0.9-1.1)
--- NOTE | 2023-02-23 00:56 | History & Physical Report ---
Date of Service February 23, 2023 Assessment & Plan (1) Influenza A: Plan: 87yo female presenting with several weeks of ongoing cough as well as LE edema and weight gain. Incidentally found to have Influenza A. She denies fever, chills, myalgias. She did not have a flu shot this year. Hypoxic on arrival at 87% on room air. She does not use supplemental O2 at home -Admit to medical -Maintain droplet precautions -Tamiflu with renal dosing -Tylenol as needed -Guaifenesin as needed (2) Acute exacerbation of CHF (congestive heart failure): Plan: Suspect acute exacerbation of CHF contributing to patient's symptoms. She does have severe MR which is being watched closely by Cardiology. Her last echo was on 08/22/22 which showed normal LV size with mild concentric LVH. EF of 60-65% with no regional WMA. 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 These findings noted to be stable when compared to prior echo from 05/12/2022. She does have mild edema and endorses weight gain - per review of weight in chart she is presently 52.1kg. This is increased from 45kg appx 6 months ago. -Check echocardiogram -Patient given 80mg IV Lasix in the ER. Will monitor diuretic response, repeat labs in AM and assess renal function. Will likely need additional IV dosing -Strict I/Os -Daily standing weights (3) Emphysema lung: Plan: No wheezing at present -Continue home nebs Patient reports very restless legs lately. Likely secondary to acute illness -Will check Ferritin -If persistent would initiate medical therapy History of Present Illness Chief Complaint: cough Primary Care Provider: Caty Rabago MD Sandra Wilde is an 87yo female with history of emphysema and severe MR being monitored by Cardiology presenting with cough. Patient has had ongoing cough since the beginning of January. She presents today with the same - persistent cough with complaint of bilateral LE edema as well as weight gain. She denies fever, CRAWFORD, orthopnea, abdominal pain, nausea, vomiting or diarrhea. No urinary complaints. No sick contacts or recent travel. Reports normal appetite and adequate PO intake. Allergies Allergy/AdvReac Type Severity Reaction Status Date / Time No Known Allergies Allergy Verified 02/01/23 10:19 Home Medications Medication Instructions Recorded Confirmed Type albuterol sulfate 90 mcg/actuation 1 inh inhalation Q6H PRN shortness 08/23/22 02/01/23 Rx aerosol inhaler of breath or wheezing #6.7 grams umeclidinium 62.5 mcg-vilanterol 1 inh inhalation DAILY #60 ea 01/26/23 02/01/23 Rx 25 mcg/actuation powdr for inhalation (Anoro Ellipta) dextromethorphan-guaifenesin 10 10 ml PO Q4H PRN cough #500 mL 02/01/23 02/01/23 Rx mg-100 mg/5 mL oral liquid Past Med/Surg History Medical History History of cigarette smoking COVID Emphysema lung Severe mitral regurgitation Surgical History No pertinent past surgical history Family History Denies family history of Ovarian cancer Prostate cancer Breast cancer Lung cancer Colorectal cancer Social History Smoking Status: Former smoker Tobacco Type: Cigarettes Age Started Using Tobacco: 17; Age Quit Using Tobacco: 85; packs per day: 1; Cigarettes Per Day: 1 PPD; Second Hand Exposure: No; Do You Dip or Chew Tobacco: No; Tobacco Cessation Education Requested by Patient: No Hx Alcohol Use: No Hx Substance Use: No Preferred Language: Syriac Communication Ability: Effective Visual Impairment: No Limitations Hearing Ability: Normal Tank Builder Required: No Beliefs That Will Affect Care: None marital status: Current Living Situation: Spouse Current Living Situation Comment: Lives with Michel, daughter Charu, and grandson Eddi current occupational 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 How many Children do You have: 1 Other Information That Helps Us Care for You: No Feels Safe at Home: Yes Safety Concerns: Feels Safe At This Time Childhood Exposure to Second-Hand Smoke: Yes Diet: regular caffeine: Yes Dental Care, Regularly: No Physical Activity Frequency: Daily Physical Activity Frequency Comment: watched her great granddaughter daily, active >90 min daily Seatbelt Use: always Sunscreen Use: No Assistive Devices: Denture - Upper Review of Systems Review of Systems: All systems reviewed & are unremarkable except as noted in HPI & below Physical Exam Physical Exam: General: patient resting comfortably, NAD, non-toxic in appearance, AA&O x 4 Skin: warm, dry, intact, no rashes or lesions HEENT: NC/AT, PERRL, EOMI, anicteric sclera, conjunctiva without injection, external ear normal to inspection and nontender, nares patent, moist mucus membranes, dentition intact, no oropharyngeal lesions, neck supple, trachea midline, no LAD, no thyromegaly, no JVD Heart: +S1/S2, regular, 4/6 ANTOINE at apex with radiation into axilla Lungs: equal air entry bilaterally, mild crackles in bilateral bases Abd: +BS, soft, NT/ND, no masses/organomegaly/ascites Ext: warm, 2+ pulses in UE/LE bilaterally, no clubbing/cyanosis, 1+ edema of bilateral LE to ankles Neuro: nonfocal, patient AA&O x 4, speech intact, no facial droop, moving all extremities on command with equal strength 5/5 Results & Data Results & Data Vital Signs (Past 12 Hours) Vital Signs Temp Pulse Pulse Resp BP BP Pulse Ox 02/23/23 00:13 80 24 120/81 95 02/22/23 22:40 93 H 02/22/23 22:40 96 H 28 H 120/81 95 02/22/23 22:39 87 L 02/22/23 22:22 36.2 C L 101 H 18 111/71 94 O2 Del Method O2 Flow Rate 02/23/23 00:13 Nasal Cannula 2 02/22/23 22:40 02/22/23 22:40 Nasal Cannula 02/22/23 22:39 Nasal Cannula 0 02/22/23 22:22 Room Air Laboratory Results Laboratory Results WBC 8.83 K/ul (4.8-10.8) 02/22/23 22:50 RBC 4.28 M/uL (4.20-5.40) 02/22/23 22:50 Hgb 12.2 g/dl (12.0-16.0) 02/22/23 22:50 Hct 39.0 % (37.0-47.0) 02/22/23 22:50 MCV 91.1 fL (80.0-100.0) 02/22/23 22:50 MCH 28.5 pg (25.0-34.0) 02/22/23 22:50 MCHC 31.3 g/dL (32.0-36.0) L 02/22/23 22:50 RDW Std Deviation 55.2 fL (36.4-46.3) H 02/22/23 22:50 RDW Coeff of Selena 16.8 % (11.5-14.5) H 02/22/23 22:50 Plt Count 126 K/uL (130-400) L 02/22/23 22:50 MPV 11.3 fL (9.4-12.4) 02/22/23 22:50 Immature Gran % (Auto) 0.8 % 02/22/23 22:50 Neut % (Auto) 79.6 % 02/22/23 22:50 Lymph % (Auto) 12.9 % 02/22/23 22:50 Howard % (Auto) 5.9 % 02/22/23 22:50 Eos % (Auto) 0.2 % 02/22/23 22:50 Baso % (Auto) 0.6 % 02/22/23 22:50 Neut # (Auto) 7.03 K/uL (1.40-6.50) H 02/22/23 22:50 Lymph # (Auto) 1.14 K/uL (1.20-3.40) L 02/22/23 22:50 Howard # (Auto) 0.52 K/uL (0.11-0.59) 02/22/23 22:50 Eos # (Auto) 0.02 K/uL (0.00-0.50) 02/22/23 22:50 Baso # (Auto) 0.05 K/uL (0.00-0.20) 02/22/23 22:50 Immature Gran # (Auto) 0.07 K/uL (0.01-0.20) 02/22/23 22:50 PT Cancelled 02/22/23 22:50 INR Cancelled 02/22/23 22:50 VBG pH 7.41 (7.36-7.41) 02/22/23 23:10 VBG pCO2 39 mmHg (38-50) 02/22/23 23:10 VBG pO2 34 mmHg 02/22/23 23:10 VBG HCO3 25 mmol/L 02/22/23 23:10 VBG O2 Saturation < 60.0 % 02/22/23 23:10 VBG Base Excess 0.1 mEq/L 02/22/23 23:10 Sodium 138 mmol/L (136-145) 02/22/23 22:50 Potassium 4.0 mmol/L (3.5-5.1) 02/22/23 22:50 Chloride 106 mmol/L (98-107) 02/22/23 22:50 Carbon Dioxide 22 mmol/L (21-32) 02/22/23 22:50 Anion Gap 10 (3-11) 02/22/23 22:50 BUN 24 mg/dl (6-23) H 02/22/23 22:50 Creatinine 1.36 mg/dl (0.6-1.2) H 02/22/23 22:50 Est Cr Clr Drug Dosing Not Reportable 02/22/23 22:50 Est GFR ( Amer) 41.0 ml/min 02/22/23 22:50 Est GFR (Non-Af Amer) 35.4 ml/min 02/22/23 22:50 BUN/Creatinine Ratio 17.6 (10-20) 02/22/23 22:50 Glucose 209 mg/dl (70-99(Fasting)) H 02/22/23 22:50 Calcium 9.2 mg/dl (8.6-10.3) 02/22/23 22:50 Magnesium 1.9 mg/dl (1.7-2.4) 02/22/23 22:50 Ferritin 49.3 ng/ml (8-388) 02/23/23 00:55 Total Bilirubin 2.1 mg/dl (0.2-1.0) H 02/22/23 22:50 AST 41 U/L (13-39) H 02/22/23 22:50 ALT 31 U/L (7-52) 02/22/23 22:50 Alkaline Phosphatase 64 U/L (34-104) 02/22/23 22:50 Troponin I High Sens 48.4 pg/ml (0-14) H 02/23/23 00:55 B-Natriuretic Peptide 3463 pg/ml (0-100) H 02/22/23 22:50 Total Protein 6.1 gm/dl (6.0-8.3) 02/22/23 22:50 Albumin 3.6 gm/dl (3.4-5.0) 02/22/23 22:50 Globulin 2.5 gm/dl (2.5-4.0) 02/22/23 22:50 Albumin/Globulin Ratio 1.4 (0.9-2) 02/22/23 22:50 Urine Color Yellow 02/23/23 00:59 Urine Appearance Clear (Clear) 02/23/23 00:59 Urine pH 6.0 (4.5-7.5) 02/23/23 00:59 Ur Specific [place] 1.010 (1.000-1.030) 02/23/23 00:59 Urine Protein Negative (Negative) 02/23/23 00:59 Urine Glucose (UA) Negative (Negative) 02/23/23 00:59 Urine Ketones Negative (Negative) 02/23/23 00:59 Urine Blood Trace (Negative) H 02/23/23 00:59 Urine Nitrite Positive (Negative) A 02/23/23 00:59 Urine Bilirubin Negative (Negative) 02/23/23 00:59 Urine Urobilinogen Negative (Negative) 02/23/23 00:59 Ur Leukocyte Esterase Trace (Negative) H 02/23/23 00:59 Urine WBC (Auto) 1-5 /hpf (0-5) 02/23/23 00:59 Urine RBC (Auto) 0-4 /hpf (0-4) 02/23/23 00:59 U Hyaline Cast (Auto) 1-5 /lpf (0-5) 02/23/23 00:59 U Epithel Cells (Auto) 20-30 /lpf (0-5) H 02/23/23 00:59 Urine Bacteria (Auto) 4+ (Negative) H 02/23/23 00:59 Nasal Influ A H1 2009 PCR DETECTED (NotDetected) A* 02/22/23 22:42 Adenovirus (PCR) Not Detected (NotDetected) 02/22/23 22:42 B. pertussis DNA (PCR) Not Detected (NotDetected) 02/22/23 22:42 B.parapertussis DNA PCR Not Detected (NotDetected) 02/22/23 22:42 C. pneumoniae DNA (PCR) Not Detected (NotDetected) 02/22/23 22:42 Coronavirus OC43 (PCR) Not Detected (NotDetected) 02/22/23 22:42 Coronavirus HKU1 (PCR) Not Detected (NotDetected) 02/22/23 22:42 Coronavirus 229E (PCR) Not Detected (NotDetected) 02/22/23 22:42 SARS-CoV-2 (PCR) Not Detected (NotDetected) 02/22/23 22:42 Coronavirus NL63 (PCR) Not Detected (NotDetected) 02/22/23 22:42 Human Metapneumovir PCR Not Detected (NotDetected) 02/22/23 22:42 Influenza Type B (PCR) Not Detected (NotDetected) 02/22/23 22:42 M. pneumoniae (PCR) Not Detected (NotDetected) 02/22/23 22:42 Parainfluenza 1 (PCR) Not Detected (NotDetected) 02/22/23 22:42 Parainfluenza 2 (PCR) Not Detected (NotDetected) 02/22/23 22:42 Parainfluenza 3 (PCR) Not Detected (NotDetected) 02/22/23 22:42 Parainfluenza 4 (PCR) Not Detected (NotDetected) 02/22/23 22:42 RSV (PCR) Not Detected (NotDetected) 02/22/23 22:42 Entero/Rhino (PCR) Not Detected (NotDetected) 02/22/23 22:42 Code Status & VTE Plan VTE Prophylaxis Plan VTE Prophylaxis will be ordered: Yes PG Care Time/CCT Total # of Minutes Spent Total Time Spent with Patient: Total time spent is greater than 50% in coordination of care (as documented) at patient's floor/unit and/or counseling patient: Coding Level of Care Code 98118 INT INP/OBS CARE 2/55MIN Diagnoses Influenza A J10.1 Acute exacerbation of CHF (congestive heart failure) I50.9 Emphysema lung J43.9
[2023-02-23] MEDS ORDERED: TEMAZEPAM 7.5 MG CAPSULE PO PRN (01:01)
[2023-02-23 01:08] LABS: Appearance Urine Clear (Clear); Bacteria Urine Automated 4+ (Negative); Bilirubin Urine Negative (Negative); Blood Urine Trace (Negative); Color Urine Yellow; Epithelial Cell Urine Auto 20-30 /lpf (0-5); Glucose Urine UA Negative (Negative); Ketones Urine Negative (Negative); Leukocyte Esterase Urine Trace (Negative); Nitrite Urine Positive (Negative); Protein Urine Negative (Negative); RBC Urine Automated 0-4 /hpf (0-4); Urobilinogen Urine Negative (Negative)
[2023-02-23 01:30] LABS: Troponin I High Sensitivity 48.4 pg/ml (0-14)
[2023-02-23] MEDS ORDERED: ACETAMINOPHEN 325 MG TAB PO PRN (02:06)
[2023-02-23] MEDS ORDERED: ALBUTEROL HFA 8 GM INHALER INH PRN (02:06)
[2023-02-23] MEDS ORDERED: ONDANSETRON INJ 2 MG/ML 2 ML VIAL IV PRN (02:06)
[2023-02-23 02:46] LABS: Ferritin 49.3 ng/ml (8-388)
--- NOTE | 2023-02-23 07:31 | XRay Report ---
XR chest 1V portable CLINICAL HISTORY: Dyspnea. COMPARISON STUDY: Chest radiograph and chest CT August 22, 2022. FINDINGS: There is no pneumothorax. Small right pleural effusion is present. Moderate cardiomegaly is noted. There is mild interstitial thickening. No consolidation is identified to suggest pneumonia. E mphysema is present. IMPRESSION: 1. Cardiomegaly. Interstitial thickening suggestive of mild interstitial pulmonary edema. An infectio us process could appear similar although is considered less likely. 2. Small right pleural effusion. ACT 112: Negative or not required by law. Electronically signed by: Minh Fajardo M.D. 02/23/2023 7:30 AM
[2023-02-23] MEDS: OSELTAMIVIR PHOSPHATE SUSP 30 MG/5 ML UDP PO SCH (09:11)
[2023-02-23] MEDS: guaiFENesin/DEXTROM SYRUP 200MG/20MG 10ML UDC PO PRN ×2 (09:11→15:02)
[2023-02-23] MEDS: HEPARIN SOD 5,000 UNIT/0.5 ML VIAL SQ SCH ×2 (09:11→20:20)
[2023-02-23] MEDS: UMECLIDINIUM/VILANTEROL 62.5/25MCG 7 PUFFS/INHALER INH SCH (09:11)
--- NOTE | 2023-02-23 09:14 | XCELERA ---
[id number] \\[email or web address]-[facility]EP\[email or web address]_PDF_Reports\[id number]}___[id number].pdf
--- NOTE | 2023-02-23 09:34 | Hospitalist Progress Note ---
Date of Service February 23, 2023 Assessment & Plan (1) Influenza A: Plan: 87yo female presenting with several weeks of ongoing cough as well as LE edema and weight gain, found to have Influenza A. She did not have a flu shot this year. Hypoxic on arrival at 87% on room air. She does not use supplemental O2 at home CXR with changes of COPD -Maintain droplet precautions -Tamiflu with renal dosing ( has SHERI) -Tylenol as needed -Guaifenesin as needed (2) Acute exacerbation of CHF (congestive heart failure): Plan: Suspect acute exacerbation of Diastolic CHF contributing to patient's symptoms. She does have severe MR which is being watched closely by Cardiology. . She does have mild edema and endorses weight gain - per review of weight in chart she is presently 52.1kg. This is increased from 45kg appx 6 months ago. -echocardiogram low NORMAL EF Severe MR -Patient given 80mg IV Lasix in the ER. Will monitor diuretic response, -sheri with CKD3 (3) Emphysema lung: Plan: No wheezing at present -Continue home nebs Patient reports very restless legs lately. Likely secondary to acute illness -Normal Ferritin - Admission and Anticipated Discharge Date Admission Date: February 23, 2023 Subjective Sandra is still short of breath but feels improved Denies chest pain Mildly productive cough of clear mucus Physical Exam Physical Exam: Lung exam shows no focal air loss some expiratory wheeze Card exam is regular with a systolic murmur at the left upper sternal border Results & Data Results & Data Vital Signs (Past 12 Hours) Vital Signs Temp Pulse Pulse Pulse Resp BP BP 02/23/23 09:14 02/23/23 08:47 98.1 F 96 H 18 120/42 L 02/23/23 08:11 02/23/23 08:08 02/23/23 07:45 02/23/23 02:07 97.5 F L 92 H 18 120/77 02/23/23 02:06 97.5 F L 92 H 18 120/77 02/23/23 02:00 02/23/23 00:13 80 24 120/81 02/22/23 22:40 93 H 02/22/23 22:40 96 H 28 H 120/81 02/22/23 22:39 02/22/23 22:22 97.2 F L 101 H 18 111/71 Pulse Ox O2 Del Method O2 Flow Rate 02/23/23 09:14 94 Room Air 02/23/23 08:47 96 Nasal Cannula 0.5 02/23/23 08:11 92 Nasal Cannula 0.5 02/23/23 08:08 84 L Room Air 02/23/23 07:45 96 Nasal Cannula 2 02/23/23 02:07 97 Nasal Cannula 2 02/23/23 02:06 97 Nasal Cannula 2 02/23/23 02:00 Nasal Cannula 2 02/23/23 00:13 95 Nasal Cannula 2 02/22/23 22:40 02/22/23 22:40 95 Nasal Cannula 02/22/23 22:39 87 L Nasal Cannula 0 02/22/23 22:22 94 Room Air Laboratory Results Reviewed CBC reviewed chemistry PG Care Time/CCT Total # of Minutes Spent Total Time Spent with Patient: Total time spent is greater than 50% in coordination of care (as documented) at patient's floor/unit and/or counseling patient: Coding Level of Care Code 70305 SUB INP/OBS CARE 3/50MIN Diagnoses Influenza A J10.1 Acute exacerbation of CHF (congestive heart failure) I50.9 Emphysema lung J43.9
--- NOTE | 2023-02-23 11:56 | Electrocardiogram Report ---
Test Reason : Blood Pressure : / mmHG Vent. Rate : 078 BPM Atrial Rate : 078 BPM P-R Int : 132 ms QRS Dur : 120 ms QT Int : 408 ms P-R-T Axes : 109 021 -02 degrees QTc Int : 465 ms Normal sinus rhythm with sinus arrhythmia Right bundle branch block Abnormal ECG When compared with ECG of 22-AUG-2022 09:36, ST no longer elevated in Inferior leads ST now depressed in Anterior leads ST less depressed in Lateral leads Confirmed by Son Olea ([id number]) on 02/23/2023 11:56:14 AM Referred By: REFERRED SELF Confirmed By:John Olea
[2023-02-23] MEDS ORDERED: LORazepam 0.5 MG TAB PO PRN (15:55)
[2023-02-24] MEDS: UMECLIDINIUM/VILANTEROL 62.5/25MCG 7 PUFFS/INHALER INH SCH (08:14)
[2023-02-24] MEDS: HEPARIN SOD 5,000 UNIT/0.5 ML VIAL SQ SCH (08:14)
[2023-02-24] MEDS: guaiFENesin/DEXTROM SYRUP 200MG/20MG 10ML UDC PO PRN (08:15)
[2023-02-24] MEDS: OSELTAMIVIR PHOSPHATE SUSP 30 MG/5 ML UDP PO SCH (09:08)
--- NOTE | 2023-02-24 11:11 | XRay Report ---
XR chest 2V PA/lateral HISTORY: 87 years-old Female eval pneumonia acute shortness of breath COMPARISON: 02/22/2023 TECHNIQUE: PA and lateral views of the chest FINDINGS: Cardiomegaly with pulmonary vascular congestion. Mitral annular calcifications. Mildly progressed int erstitial coarsening. Trace pleural effusions. Mild right hemidiaphragmatic elevation. No pneumothora x or lobar airspace consolidation. Bones appear grossly intact. IMPRESSION: Cardiomegaly with mildly progressed pulmonary edema and trace pleural effusions. ACT 112: Negative or not required by law. The above report was generated using voice recognition software. It may contain grammatical, syntax o r spelling errors. Electronically signed by: Victoriano Black M.D. 02/24/2023 11:10 AM
[2023-02-24 11:21] LABS: Hematocrit (blood only) 36.6 % (37.0-47.0); Hemoglobin 11.9 g/dl (12.0-16.0); Mean Corpuscular Hemoglobin 28.5 pg (25.0-34.0); Mean Corpuscular Hgb Conc 32.5 g/dL (32.0-36.0); Mean Corpuscular Volume 87.6 fL (80.0-100.0); Mean Platelet Volume 11.6 fL (9.4-12.4); Platelet Count 124 K/uL (130-400); RDW Coefficient of Variation 16.7 % (11.5-14.5); RDW Standard Deviation 53.2 fL (36.4-46.3); Red Blood Count 4.18 M/uL (4.20-5.40); White Blood Count 6.24 K/ul (4.8-10.8)
[2023-02-24 11:33] LABS: Albumin Level 3.3 gm/dl (3.4-5.0); BUN Creatinine Ratio 19.4 (10-20); Bilirubin Direct 0.7 mg/dl (0-0.2); Calcium 8.8 mg/dl (8.6-10.3); Creatinine Clr Calc Pharmacy 24.1 ml/min; Est GFR (African American) 43.7 ml/min; Est GFR (Non-African American) 37.7 ml/min; Magnesium 1.9 mg/dl (1.7-2.4); Potassium 3.9 mmol/L (3.5-5.1); Total Protein 5.8 gm/dl (6.0-8.3)
--- NOTE | 2023-02-24 15:42 | Discharge Summary ---
Date of Service February 24, 2023 Admission HPI Per Admitting Provider Sandra Wilde is an 87yo female with history of emphysema and severe MR being monitored by Cardiology presenting with cough. Patient has had ongoing cough since the beginning of January. She presents today with the same - persistent cough with complaint of bilateral LE edema as well as weight gain. She denies fever, CRAWOFRD, orthopnea, abdominal pain, nausea, vomiting or diarrhea. No urinary complaints. No sick contacts or recent travel. Reports normal appetite and adequate PO intake. Principal Diagnosis Acute on chronic respiratory failure secondary to influenza A on top of COPD Discharge Exam Lung exam shows no focal air loss expiratory wheezes have resolved e Card exam is regular with a systolic murmur at the left upper sternal border Discharge Data Allergies Allergy/AdvReac Type Severity Reaction Status Date / Time No Known Allergies Allergy Verified 02/01/23 10:19 Consultations 02/23/23 00:31 ED Decision to Admit Stat Hospital Course (1) Influenza A: 87yo female presenting with several weeks of ongoing cough as well as LE edema and weight gain, found to have Influenza A. She did not have a flu shot this year. Hypoxic on arrival at 87% on room air. She is improved dramatically and no longer requiring any supplemental oxygen. Dramatic improvement with initiation of Tamiflu therapy will complete course at home of renal dosed Tamiflu CXR with changes of COPD pneumonia is ruled out -Maintain droplet precautions given instructions for home isolation precautions the patient and her family were present at the time of discharge (2) Acute exacerbation of CHF (congestive heart failure): With dramatic turnaround no longer suspect acute exacerbation of Diastolic CHF contributing to patient's symptoms. She does have severe MR which is being watched closely by Cardiology. . -echocardiogram low NORMAL EF Severe MR -Patient given 80mg IV Lasix in the ER. No additional diuretics have been required while patient is inpatient (3) Emphysema lung: No wheezing at present -Continue home nebs Patient reports very restless legs lately. Likely secondary to acute illness -Normal Ferritin - Total Time Total Time Spent Total Time Spent (In Minutes): It required greater than 30 minutes to prepare this patient for discharge. Discharge Plan Discharge Items Patient Disposition: Home - Self-Care Reason For Visit: INFLUENZA, HYPOXIA Discharge Diagnosis: influenza infection flare up of chronic lung disease Activity: Per Instructions section Activity Comment: slowly increase activity Non-emergency contact: Primary Care Provider Call non-emergency contact if: your symptoms worsen Follow-up/Referrals: Caty Rabago MD [Primary Care Provider] - 03/03/23 11:00 am (APPOINTMENT WITH [facility]) Diet: Regular Addtl Attending Provider Instructions: complete the remainder of your tamiflu medication, you will still be contagous to people while you are on your medication, probably one week from your first symptom, take appropriate precautions to avoid spreading your illness to others, you or your family may choose to wear a mask when you are near each other please follow up with your primary care as soon as able Pending Studies at Discharge: No Stand-Alone Forms: My [facility] [employer], Smoking Cessation Medications and DC Order Prescriptions: New oseltamivir [Tamiflu] 30 mg capsule 30 mg PO BID 4 Days Qty: 8 0RF Continued Anoro Ellipta 62.5-25 mcg/actuation blister with device 1 inh inhalation DAILY Qty: 60 3RF dextromethorphan-guaifenesin 10-100 mg/5 mL liquid 10 ml PO Q4H PRN (Reason: cough) Qty: 500 0RF albuterol sulfate 90 mcg/actuation HFA aerosol inhaler 1 inh inhalation Q6H PRN (Reason: shortness of breath or wheezing) Qty: 6.7 0RF Discharge Orders: Discharge Order (Routine); Ordered 02/24/23 Ordered By: Mejia Hernandez Admission Data Admit Date/Time: 02/23/23 00:55 Attending Provider: Mejia Hernandez Admit Provider: Keysha Conte Primary Care Provider: Caty Rabago Other Providers: Keysha Conte Other Interventions: Discharge Summary Assessment (RN) Last Done: 02/24/23 11:01 Coding Level of Care Code 51119 INP/OBS DISCH >30 MIN Diagnoses Influenza A J10.1 Acute exacerbation of CHF (congestive heart failure) I50.9 Emphysema lung J43.9
== END 2023-02-24 13:01 | disposition home or self-care (01) | DRG 193 ==
LOC: ED 22:18 → INTOOBSV 02-23 00:55 → SUATTDRO 02-23 00:55 → 3W 02-23 00:55

== ENCOUNTER 2023-03-18 07:56 | Inpatient (IN) ==
[2023-03-18 09:22] LABS: Basophils # (auto) 0.07 K/uL (0.00-0.20); Basophils % (auto) 1.1 %; Eosinophils # (auto) 0.05 K/uL (0.00-0.50); Eosinophils % (auto) 0.8 %; Hematocrit (blood only) 40.2 % (37.0-47.0); Hemoglobin 12.8 g/dl (12.0-16.0); Immature Granulocytes # (auto) 0.02 K/uL (0.01-0.20); Immature Granulocytes % (auto) 0.3 %; Lymphocytes # (auto) 0.92 K/uL (1.20-3.40); Lymphocytes % (auto) 14.7 %; Mean Corpuscular Hemoglobin 27.5 pg (25.0-34.0); Mean Corpuscular Hgb Conc 31.8 g/dL (32.0-36.0); Mean Corpuscular Volume 86.3 fL (80.0-100.0); Mean Platelet Volume 11.9 fL (9.4-12.4); Monocytes # (auto) 0.45 K/uL (0.11-0.59); Monocytes % (auto) 7.2 %; Neutrophils # (auto) 4.74 K/uL (1.40-6.50); Neutrophils % (auto) 75.9 %; Platelet Count 144 K/uL (130-400); RDW Coefficient of Variation 17.2 % (11.5-14.5); RDW Standard Deviation 53.2 fL (36.4-46.3); Red Blood Count 4.66 M/uL (4.20-5.40); White Blood Count 6.25 K/ul (4.8-10.8)
[2023-03-18 09:58] LABS: Alanine Aminotransferase 16 U/L (7-52); Albumin Globulin Ratio 1.3 (0.9-2); Albumin Level 3.8 gm/dl (3.4-5.0); Alkaline Phosphatase 63 U/L (34-104); BUN Creatinine Ratio 16.2 (10-20); Bilirubin,Total 1.5 mg/dl (0.2-1.0); Blood Urea Nitrogen 18 mg/dl (6-23); Calcium 9.4 mg/dl (8.6-10.3); Carbon Dioxide 23 mmol/L (21-32); Chloride 106 mmol/L (98-107); Est GFR (African American) 52.4 ml/min; Est GFR (Non-African American) 45.2 ml/min; Globulin 2.9 gm/dl (2.5-4.0); Glucose 111 mg/dl (70-99(Fasting)); Total Protein 6.7 gm/dl (6.0-8.3); Troponin I High Sensitivity 21.5 pg/ml (0-14)
--- NOTE | 2023-03-18 09:58 | Emergency Department Note ---
Impression & Plan Acute dyspnea, CHF (congestive heart failure) ED Provider Note NAME: CIRO COPELAND AGE: 87 SEX: F : 1935 ARRIVES VIA: Walk-In INFORMANT: Patient, ED PROVIDER(S): Ben Ramos MD CHIEF COMPLAINT: Falls, shortness of breath HPI: This an 87-year-old female with history of CHF COPD, presenting after multiple falls. Patient is with daughter and granddaughter. Daughter provides most of the history and states that patient does live with her and this daughter. Patient has been having more frequent falls, 3 this week. Today patient was sitting on a radiator when she probably fell forward and hit her face against the ground. She is also having increased shortness of breath with increasing leg swelling. She was in the hospital recently for influenza A, discharged and had a UTI at some point. Otherwise she notes no nausea, vomiting or chest pain. ROS: See above HPI for pertinent positives & negatives. A total of 10 systems reviewed and were otherwise negative. PAST MEDICAL HISTORY: See Below PAST SURGICAL HISTORY: See Below FAMILY HISTORY: See Below SOCIAL HISTORY: See Below HOME MEDICATIONS: See Below ALLERGIES: See Below VITALS: See Below PHYSICAL EXAMINATION: General: resting comfortably in no acute distress Head: Swollen, ecchymotic nose, nasolabial ecchymosis Eyes: Normal inspection, extraocular muscles intact Ear, nose, throat: Normal external exam Neck: Normal range of motion Respiratory: Rhonchi at the bases Cardiovascular: Regular rate/rhythm, no murmur GI: soft, nontender, no guarding or rebound Extremities: nontender, moves all extremities, 2+ pitting edema to bilateral lower extremities Neuro: The patient awake and alert, appropriately conversive, no focal deficits, symmetric faces Skin: Warm, dry, and intact MEDICAL DECISION MAKING: This is an 87-year-old female with history of CHF, COPD presenting for multiple falls where patient is notably hypoxic, satting at 75% on room air according to nurse. Otherwise patient has significant swelling to bilateral lower extremities. Does have history of CHF, likely related. Will get chest x-ray to have elucidated otherwise patient significant trauma to head. Will do CT head, neck. Will do chest x-ray to evaluate for patient's shoulder pain as well. -Patient at baseline mental status per family -CT of the head reveals no traumatic injuries, C-spine is cleared as well -CT of the face does reveal a questionable nondisplaced nasal fracture -Patient is persistently hypoxic here, likely CHF based on clinical presentation and lung exam -Will admit for hypoxia, CHF, falls Differential diagnosis: CHF, viral syndrome, low concern for PE clinically, pneumonia ER treatment provided: See below Diagnostics interpreted by me: ECG: ECG independently interpreted by me with normal sinus rhythm with frequent PVCs, rate of 89, normal axis, normal IL, right bundle branch block, normal QTc, no ST segment elevations consistent with STEMI criteria, T wave versions in the inferior lateral leads Cardiac Monitoring: An order was placed for continuous cardiac monitoring. The monitor shows a rate 81 with sinus rhythm. Laboratory studies: As stated above and show below. Imaging studies: See below. Past Med/Surg History Medical History History of cigarette smoking COVID Emphysema lung Severe mitral regurgitation Surgical History No pertinent past surgical history Family History Denies family history of Ovarian cancer Prostate cancer Breast cancer Lung cancer Colorectal cancer Social History Smoking Status: Current every day smoker Tobacco Type: Cigarettes Age Started Using Tobacco: 17; Age Quit Using Tobacco: 85; packs per day: 1; Cigarettes Per Day: 1 PPD; Second Hand Exposure: No; Do You Dip or Chew Tobacco: No; Hx Alcohol Use: No Hx Substance Use: No Preferred Language: Kiswahili Communication Ability: Effective Visual Impairment: No Limitations Hearing Ability: Normal Ripening Room Operator Required: No Beliefs That Will Affect Care: None marital status: Current Living Situation: Spouse and Family Current Living Situation Comment: Lives with Michel, daughter Charu, and grandson Eddi current occupational 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 How many Children do You have: 1 Feels Safe at Home: Yes Safety Concerns: Feels Safe At This Time Childhood Exposure to Second-Hand Smoke: Yes Diet: regular caffeine: Yes Dental Care, Regularly: No Physical Activity Frequency: Daily Physical Activity Frequency Comment: watched her great granddaughter daily, active >90 min daily Seatbelt Use: always Sunscreen Use: No Assistive Devices: None Allergies Allergies Allergy/AdvReac Type Severity Reaction Status Date / Time No Known Allergies Allergy Verified 03/03/23 11:00 Home Meds Previous Rx's Medication Instructions Recorded albuterol sulfate 90 mcg/actuation 1 inh inhalation Q6H PRN shortness 08/23/22 aerosol inhaler of breath or wheezing #6.7 grams umeclidinium 62.5 mcg-vilanterol 1 inh inhalation DAILY #60 ea 01/26/23 25 mcg/actuation powdr for inhalation (Anoro Ellipta) ciprofloxacin HCl 250 mg tablet 250 mg PO BID #10 tabs 03/04/23 Results & Data (ED) Vital Signs Vital Signs - 24 hr 03/18/23 07:57 03/18/23 08:44 03/18/23 08:47 Temperature 37.2 C Temperature Source Temporal Artery Scan Pulse Rate 93 H 96 H Pulse Rate [Apical] 93 H Respiratory Rate 18 Blood Pressure 124/85 Blood Pressure [Right Arm] 144/91 H Blood Pressure Mean 98 Blood Pressure Mean [Right Arm] 108 Pulse Oximetry 99 93 Oxygen Delivery Method Room Air Oxygen Flow Rate Sepsis Recent Fever Within 48 Hours No Sepsis New/Unexplained Change in Mental Status N/A Sepsis Action Taken by Nursing No Action Required 03/18/23 08:57 03/18/23 10:00 Temperature Temperature Source Pulse Rate Pulse Rate [Apical] 95 H Respiratory Rate 22 Blood Pressure Blood Pressure [Right Arm] 111/82 Blood Pressure Mean Blood Pressure Mean [Right Arm] 91 Pulse Oximetry 80 L 100 Oxygen Delivery Method Room Air Nasal Cannula Oxygen Flow Rate 3 Sepsis Recent Fever Within 48 Hours Sepsis New/Unexplained Change in Mental Status Sepsis Action Taken by Nursing Laboratory Data 03/18/23 08:45 03/18/23 10:18 Lab Results 03/18/23 03/18/23 Range/Units 08:45 10:18 WBC 6.25 (4.8-10.8) K/ul RBC 4.66 (4.20-5.40) M/uL Hgb 12.8 (12.0-16.0) g/dl Hct 40.2 (37.0-47.0) % MCV 86.3 (80.0-100.0) fL MCH 27.5 (25.0-34.0) pg MCHC 31.8 L (32.0-36.0) g/dL RDW Std Deviation 53.2 H (36.4-46.3) fL RDW Coeff of Selena 17.2 H (11.5-14.5) % Plt Count 144 (130-400) K/uL MPV 11.9 (9.4-12.4) fL Immature Gran % (Auto) 0.3 % Neut % (Auto) 75.9 % Lymph % (Auto) 14.7 % Walker % (Auto) 7.2 % Eos % (Auto) 0.8 % Baso % (Auto) 1.1 % Neut # (Auto) 4.74 (1.40-6.50) K/uL Lymph # (Auto) 0.92 L (1.20-3.40) K/uL Walker # (Auto) 0.45 (0.11-0.59) K/uL Eos # (Auto) 0.05 (0.00-0.50) K/uL Baso # (Auto) 0.07 (0.00-0.20) K/uL Immature Gran # (Auto) 0.02 (0.01-0.20) K/uL Sodium TNP 138 Potassium TNP 4.4 Chloride 106 (98-107) mmol/L Carbon Dioxide 23 (21-32) mmol/L Anion Gap TNP BUN 18 (6-23) mg/dl Creatinine 1.11 (0.6-1.2) mg/dl Est Cr Clr Drug Dosing Not Reportable Est GFR ( Amer) 52.4 ml/min Est GFR (Non-Af Amer) 45.2 ml/min BUN/Creatinine Ratio 16.2 (10-20) Glucose 111 H (70-99(Fasting)) mg/dl Calcium 9.4 (8.6-10.3) mg/dl Total Bilirubin 1.5 H (0.2-1.0) mg/dl AST TNP 30 ALT 16 (7-52) U/L Alkaline Phosphatase 63 (34-104) U/L Troponin I High Sens 21.5 H 22.2 H (0-14) pg/ml B-Natriuretic Peptide 1296 H (0-100) pg/ml Total Protein 6.7 (6.0-8.3) gm/dl Albumin 3.8 (3.4-5.0) gm/dl Globulin 2.9 (2.5-4.0) gm/dl Albumin/Globulin Ratio 1.3 (0.9-2) Administered Medications Furosemide (Furosemide 40 Mg/4 Ml Vial) 40 mg IV QAM MARIELLE Stop: 04/17/23 12:14 Last Admin: 03/18/23 12:37 Dose: 40 mg Documented By: MARCI Imaging Data Radiologist's Impression: Chest X-Ray 03/18/23 09:01 XR chest 1V portable HISTORY: 87 years-old Female SOB acute shortness of breath COMPARISON: 03/03/2023 TECHNIQUE: AP view of the chest FINDINGS: Cardiac silhouette is enlarged. Mitral valvular calcifications. Pulmonary vascular congestion with interstitial coarsening and small pleural effusions. The patient is rotated towards the left. Emphysema. Degenerative changes of the shoulders and spine. IMPRESSION: 1. Cardiomegaly with pulmonary edema and small pleural effusions. 2. Emphysema. ACT 112: Negative or not required by law. The above report was generated using voice recognition software. It may contain grammatical, syntax or spelling errors. Electronically signed by: Victoriano Black M.D. 03/18/2023 10:[address] 03/18/23 09:23 CT cervical spine wo con CT DOSE: 1271.28 mGy.cm CLINICAL HISTORY: 87 years-old Female with Trauma. Acute head and neck injury status post fall COMPARISON: CT head and maxillofacial studies of same day, CTA chest 08/22/2022. TECHNIQUE: Multiple axial CT images of the cervical spine were obtained without contrast. A dose lowering technique was utilized adhering to the principles of ALARA. FINDINGS: Demineralized appearance of the bones with multilevel degenerative changes including prominently moderate intervertebral disc space narrowing and moderate to severe facet arthrosis. Mild cervical levoscoliosis. No acute cervical spine fracture or subluxation identified. Mild superior endplate compression at T3 and T4 is unchanged from the prior study. The cervical soft tissues appear unremarkable. No pneumothorax. Layering right greater than left pleural effusions. Nonspecific borderline enlarged mediastinal lymph nodes measuring up to approximately 10 mm. Atherosclerosis of the carotid arteries. Emphysema with bronchitis and intralobular septal thickening. IMPRESSION: 1. No acute fracture or subluxation. 2. Emphysema with bronchitis, probable interstitial pulmonary edema and layering pleural effusions. 3. Nonspecific borderline enlarged mediastinal lymph nodes. ACT 112: Negative or not required by law. The above report was generated using voice recognition software. It may contain grammatical, syntax or spelling errors. Electronically signed by: Victoriano Black M.D. 03/18/2023 10:[address] 03/18/23 09:23 CT SCAN OF THE FACIAL BONES WITHOUT IV CONTRAST CLINICAL HISTORY: Fall. Facial injury. COMPARISON STUDY: No priors. TECHNIQUE: High-resolution CT scan of the facial bones is performed. Images are reviewed in the axial, sagittal, and coronal planes. IV contrast was not administered for this examination. A dose lowering technique was utilized adhering to the principles of ALARA. FINDINGS: The skeletal structures are osteopenic. Question nondisplaced fracture of the right nasal bone. There is overlying soft tissue edema. There is fracture of the bony nasal septum which is deviated to the left. No additional facial bone fracture is seen. The bony orbits are intact and the orbital contents are within normal limits. The zygomatic arches and pterygoid plates are preserved. The maxilla and mandible are intact. There is anterior translation of both mandibular condyles. The patient is edentulous. There are no layering blood products within the paranasal sinuses. There is trace mucosal thickening within the ethmoid sinuses. There are many paranasal sinuses are clear. The mastoid air cells are well pneumatized. Cerumen is noted in the external auditory canals. The visualized calvarium and upper cervical spine are maintained. Partially imaged brain parenchyma is within normal limits. There is atherosclerotic calcification of the carotid bulbs. IMPRESSION: 1. Question a nondepressed fracture of the right nasal bone. There is fracture of the bony nasal septum, with nasal soft tissue edema. 2. No additional facial bone fracture is seen. 3. There is anterior translation of both mandibular condyles. This may be related to open mouth positioning. Correlate clinically for evidence of bilateral temporomandibular joint dislocation. ACT 112: Negative or not required by law. Electronically signed by: Srinivasan Sullivan M.D. 03/18/2023 10:[address] 03/18/23 09:23 CT head/brain wo con CLINICAL HISTORY: 87 years-old Female with Trauma. Acute head trauma TECHNIQUE: Multiple axial CT images of the head were obtained without contrast. A dose lowering technique was utilized adhering to the principles of ALARA. COMPARISON: CT cervical spine of same day, head CT 05/10/2022 FINDINGS: No acute intracranial hemorrhage, midline shift, intracranial mass, hydrocephalus, territorial ischemia or abnormal extra-axial collection. Involutional changes with chronic microvascular ischemic disease. Mildly motion degraded exam. The calvarium is intact. Partially imaged soft tissue swelling of the nasal bridge. The paranasal sinuses, mastoid air cells, and middle ear cavities are clear. IMPRESSION: No acute intracranial abnormality or calvarial fracture. ACT 112: Negative or not required by law. The above report was generated using voice recognition software. It may contain grammatical, syntax or spelling errors. Electronically signed by: Victoriano Black M.D. 03/18/2023 10:07 AM Discharge Plan Visit Data Chief Complaint: Fall Stated Complaint: FELL DOWN STEPS ED Provider: Ben Ramos Discharge Problem: Acute dyspnea, CHF (congestive heart failure) Patient Disposition: Admitted As Inpatient Discharge Instructions Interventions: ED Discharge Assessment Last Done: 03/18/23 15:24
--- NOTE | 2023-03-18 10:09 | CT Scan Report ---
CT head/brain wo con CLINICAL HISTORY: 87 years-old Female with Trauma. Acute head trauma TECHNIQUE: Multiple axial CT images of the head were obtained without contrast. A dose lowering tech nique was utilized adhering to the principles of ALARA. COMPARISON: CT cervical spine of same day, head CT 05/10/2022 FINDINGS: No acute intracranial hemorrhage, midline shift, intracranial mass, hydrocephalus, territorial ischem ia or abnormal extra-axial collection. Involutional changes with chronic microvascular ischemic disea se. Mildly motion degraded exam. The calvarium is intact. Partially imaged soft tissue swelling of the nasal bridge. The paranasal sin uses, mastoid air cells, and middle ear cavities are clear. IMPRESSION: No acute intracranial abnormality or calvarial fracture. ACT 112: Negative or not required by law. The above report was generated using voice recognition software. It may contain grammatical, syntax o r spelling errors. Electronically signed by: Victoriano Black M.D. 03/18/2023 10:07 AM
--- NOTE | 2023-03-18 10:16 | CT Scan Report ---
CT cervical spine wo con CT DOSE: 1271.28 mGy.cm CLINICAL HISTORY: 87 years-old Female with Trauma. Acute head and neck injury status post fall COMPARISON: CT head and maxillofacial studies of same day, CTA chest 08/22/2022. TECHNIQUE: Multiple axial CT images of the cervical spine were obtained without contrast. A dose low ering technique was utilized adhering to the principles of ALARA. FINDINGS: Demineralized appearance of the bones with multilevel degenerative changes including promin ently moderate intervertebral disc space narrowing and moderate to severe facet arthrosis. Mild cervi сергей levoscoliosis. No acute cervical spine fracture or subluxation identified. Mild superior endplate compression at T3 and T4 is unchanged from the prior study. The cervical soft tissues appear unremarkable. No pneumothorax. Layering right greater than left ple ural effusions. Nonspecific borderline enlarged mediastinal lymph nodes measuring up to approximately 10 mm. Atherosclerosis of the carotid arteries. Emphysema with bronchitis and intralobular septal th ickening. IMPRESSION: 1. No acute fracture or subluxation. 2. Emphysema with bronchitis, probable interstitial pulmonary edema and layering pleural effusions. 3. Nonspecific borderline enlarged mediastinal lymph nodes. ACT 112: Negative or not required by law. The above report was generated using voice recognition software. It may contain grammatical, syntax o r spelling errors. Electronically signed by: Victoriano Black M.D. 03/18/2023 10:14 AM
--- NOTE | 2023-03-18 10:34 | CT Scan Report ---
CT SCAN OF THE FACIAL BONES WITHOUT IV CONTRAST CLINICAL HISTORY: Fall. Facial injury. COMPARISON STUDY: No priors. TECHNIQUE: High-resolution CT scan of the facial bones is performed. Images are reviewed in the axia l, sagittal, and coronal planes. IV contrast was not administered for this examination. A dose lower ing technique was utilized adhering to the principles of ALARA. FINDINGS: The skeletal structures are osteopenic. Question nondisplaced fracture of the right nasal b one. There is overlying soft tissue edema. There is fracture of the bony nasal septum which is deviat ed to the left. No additional facial bone fracture is seen. The bony orbits are intact and the orbita l contents are within normal limits. The zygomatic arches and pterygoid plates are preserved. The max illa and mandible are intact. There is anterior translation of both mandibular condyles. The patient is edentulous. There are no layering blood products within the paranasal sinuses. There is trace muco adam thickening within the ethmoid sinuses. There are many paranasal sinuses are clear. The mastoid ai r cells are well pneumatized. Cerumen is noted in the external auditory canals. The visualized calvar ium and upper cervical spine are maintained. Partially imaged brain parenchyma is within normal limit s. There is atherosclerotic calcification of the carotid bulbs. IMPRESSION: 1. Question a nondepressed fracture of the right nasal bone. There is fracture of the bony nasal sept um, with nasal soft tissue edema. 2. No additional facial bone fracture is seen. 3. There is anterior translation of both mandibular condyles. This may be related to open mouth posit ioning. Correlate clinically for evidence of bilateral temporomandibular joint dislocation. ACT 112: Negative or not required by law. Electronically signed by: Srinivasan Sullivan M.D. 03/18/2023 10:33 AM
--- NOTE | 2023-03-18 10:45 | XRay Report ---
XR chest 1V portable HISTORY: 87 years-old Female SOB acute shortness of breath COMPARISON: 03/03/2023 TECHNIQUE: AP view of the chest FINDINGS: Cardiac silhouette is enlarged. Mitral valvular calcifications. Pulmonary vascular congestion with in terstitial coarsening and small pleural effusions. The patient is rotated towards the left. Emphysema . Degenerative changes of the shoulders and spine. IMPRESSION: 1. Cardiomegaly with pulmonary edema and small pleural effusions. 2. Emphysema. ACT 112: Negative or not required by law. The above report was generated using voice recognition software. It may contain grammatical, syntax o r spelling errors. Electronically signed by: Victoriano Black M.D. 03/18/2023 10:44 AM
[2023-03-18 10:59] LABS: Potassium 4.4 mmol/L (3.5-5.1)
[2023-03-18 11:20] LABS: Troponin I High Sensitivity 22.2 pg/ml (0-14)
--- NOTE | 2023-03-18 11:37 | History & Physical Report ---
Date of Service March 18, 2023 Assessment & Plan (1) Acute exacerbation of CHF (congestive heart failure): Plan: Worsening CRAWFORD and LE swelling x 2 months Patient was hypoxic in the ED on arrival at 80%; no at home supplemental oxygen use CXR revealed cardiomegaly with pulmonary edema and small pleural effusions, as well as emphysema BNP elevated at 1296 Cepheid ordered, pending Supplemental oxygen as needed to maintain SpO2 >92% Hx of emphysema; former tobacco cigarette smoker Echocardiogram on 02/23/2023 revealed grade 3 diastolic dysfunction and marked CHF; severe MR; LVEF 50-55% Patient reports she is not on Lasix as she was told it was addictive Lasix 40 mg IV QAM while inpatient, and recommend outpatient Lasix moving forward A.m. CBC, BMP (2) Fall: Plan: Unwitnessed fall the morning of 03/18 Patient reportedly fell forward while sleeping and struck her face; no LOC; not on blood thinners Head CT NAF PCT revealed a nondepressed fracture of the right nasal bone, and anterior trans lation of both mandibular condyles Cervical spine CT revealed no acute fractures, but noted emphysema with bronchitis Fall precautions Patient reports dizziness when standing Orthostatic vital signs ordered, pending Patient was recently being treated for UTI with ciprofloxacin 250 mg twice daily UA ordered, pending, with reflex urine culture pending Patient does not use ambulatory devices at baseline PT/OT consulted (3) History of influenza: Plan: Recent [facility] hospitalization for influenza A H1 2008 on 02/22/23 Patient endorses lingering productive cough and residual weakness Guaifenesin 600 mg p.o. q12h as needed for cough Promote good pulmonary hygiene with incentive spirometry and flutter valve QID DuoNeb 3 mL QIDR as needed if wheezing develops (4) COPD (chronic obstructive pulmonary disease): Plan: Continue Anoro Ellipta (5) Elevated troponin: Plan: Troponin 21.5->22.2 on arrival Patient denies CP Telemetry monitoring (6) Severe mitral regurgitation: Plan: Chronic; noted Plan Disposition: Admit to [facility] with telemetry DNR/DNI AHA, low-sodium diet (fluid restriction at 1800mL) VTE PPx: SCDs (hold chemical DVT PPx in the setting of recent fall, then start pending a.m. CBC / length of stay) History of Present Illness Chief Complaint: Fall Primary Care Provider: Caty Rabago MD Sandra is an 87-year-old female with PMH of dementia, CVD, COPD, emphysema, severe mitral regurgitation, and CHF. She presented for an unwitnessed fall on the morning of 03/18. Patient was hypoxic at 80% in the ED. recent [facility] admission for influenza A in January 2023. She does not use supplemental oxygen at home. No ambulatory assist devices. Patient is a poor historian, and is unclear on how she fell. Family at the bedside believes that she fell asleep while sitting on her radiator (to keep warm) and then fell forward onto her face. Patient struck her face and injured her nose, but denies nose pain at time of admission. No LOC. Not on blood thinners. Patient lives with her , daughter, and grandson. Her only daily medication is an oral Ellipta, which she reports taking regularly. She is not on Lasix, as she has been told that it is addictive. She has had leg swelling over the past couple months. She also endorses dizziness when standing up, and CRAWFORD when going up steps. She recently finished a course of ciprofloxacin 250 mg twice daily x 7 days for UTI. Former tobacco cigarette smoker; quit "years ago"; 1 PPD. Patient denies alcohol and recreational drug use. Patient reports she does not watch her salt intake; eats chips, crackers, and tomato soup. Vital stable at time of admission with the patient on 3L NC (SpO2 100%). ROS: Patient endorses cold intolerance, productive cough (clear sputum production), CRAWFORD, pain/swelling in the LEs, dysuria, and burning with urination (which has started to resolve after treatment with outpatient antibiotics). Patient denies fever, chills, sweats, dizziness, lightheadedness, chest pain, chest palpitations, pleuritic CP, hemoptysis, SOB at rest, abdominal pain, or N/V/D. Allergies Allergy/AdvReac Type Severity Reaction Status Date / Time No Known Allergies Allergy Verified 03/03/23 11:00 Home Medications Medication Instructions Recorded Confirmed Type albuterol sulfate 90 mcg/actuation 1 inh inhalation Q6H PRN shortness 08/23/22 03/18/23 Rx aerosol inhaler of breath or wheezing #6.7 grams umeclidinium 62.5 mcg-vilanterol 1 inh inhalation DAILY #60 ea 01/26/23 03/18/23 Rx 25 mcg/actuation powdr for inhalation (Anoro Ellipta) ciprofloxacin HCl 250 mg tablet 250 mg PO BID #10 tabs 03/04/23 03/18/23 Rx Past Med/Surg History Medical History History of cigarette smoking COVID Emphysema lung Severe mitral regurgitation Surgical History No pertinent past surgical history Family History Denies family history of Ovarian cancer Prostate cancer Breast cancer Lung cancer Colorectal cancer Social History Smoking Status: Current every day smoker Tobacco Type: Cigarettes Age Started Using Tobacco: 17; Age Quit Using Tobacco: 85; packs per day: 1; Cigarettes Per Day: 1 PPD; Second Hand Exposure: No; Do You Dip or Chew Tobacco: No; Hx Alcohol Use: No Hx Substance Use: No Preferred Language: Kyrgyz Communication Ability: Effective Visual Impairment: No Limitations Hearing Ability: Normal Food Chemist Required: No Beliefs That Will Affect Care: None marital status: Current Living Situation: Spouse Current Living Situation Comment: Lives with Michel, daughter Charu, and grandson Eddi current occupational 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 How many Children do You have: 1 Feels Safe at Home: Yes Childhood Exposure to Second-Hand Smoke: Yes Diet: regular caffeine: Yes Dental Care, Regularly: No Physical Activity Frequency: Daily Physical Activity Frequency Comment: watched her great granddaughter daily, active >90 min daily Seatbelt Use: always Sunscreen Use: No Assistive Devices: None Review of Systems Review of Systems: See HPI above Physical Exam Physical Exam: General: no acute distress; non-toxic appearing; frail cooperative HEENT: Abrasion across the bridge of the nose; dark purple contusions beneath the eyes bilaterally; no scleral icterus; PERRLA w/ EOMs intact; moist mucus membrane; vision and hearing intact Neck: supple; no JVD; no lymphadenopathy; trachea midline Skin: warm, dry without signs of tenting; no cyanosis; no rashes, bruising, le sions, or erythema noted CV: chest wall NTP; RRR; S1/S2 normal; 2/6 systolic ejection murmur auscultated at the second ICS MCL; pulses intact and symmetric at radial, DP, and PT Lungs: no acute respiratory distress; symmetrical chest wall expansion; diminished breath sounds across all lung conway; mild crackles in the LLL; no wheezing ABD: Soft, NTP; BS present; no rebound/guarding; no distention; negative CVA tenderness MSK: no tics or fasciculations; +1 pitting edema extending from the ankles up to Knees bilaterally, nonerythematous Neuro: A&Ox3; normal mood and affect; fluent speech; no focal deficits; sensation grossly intact in the LEs b/l Results & Data Results & Data Vital Signs (Past 12 Hours) Vital Signs Temp Pulse Pulse Resp BP BP Pulse Ox 03/18/23 10:00 95 H 22 111/82 100 03/18/23 08:57 80 L 03/18/23 08:47 93 H 144/91 H 93 03/18/23 08:44 96 H 03/18/23 07:57 37.2 C 93 H 18 124/85 99 O2 Del Method O2 Flow Rate 03/18/23 10:00 Nasal Cannula 3 03/18/23 08:57 Room Air 03/18/23 08:47 Room Air 03/18/23 08:44 03/18/23 07:57 Laboratory Results Abnormal lab results 03/18/23 03/18/23 Range/Units 08:45 10:18 MCHC 31.8 L (32.0-36.0) g/dL RDW Std Deviation 53.2 H (36.4-46.3) fL RDW Coeff of Selena 17.2 H (11.5-14.5) % Lymph # (Auto) 0.92 L (1.20-3.40) K/uL Glucose 111 H (70-99(Fasting)) mg/dl Total Bilirubin 1.5 H (0.2-1.0) mg/dl Troponin I High Sens 21.5 H 22.2 H (0-14) pg/ml B-Natriuretic Peptide 1296 H (0-100) pg/ml Diagnostic Findings Chest X-Ray 03/18/23 09:01 XR chest 1V portable HISTORY: 87 years-old Female SOB acute shortness of breath COMPARISON: 03/03/2023 TECHNIQUE: AP view of the chest FINDINGS: Cardiac silhouette is enlarged. Mitral valvular calcifications. Pulmonary vascular congestion with interstitial coarsening and small pleural effusions. The patient is rotated towards the left. Emphysema. Degenerative changes of the shoulders and spine. IMPRESSION: 1. Cardiomegaly with pulmonary edema and small pleural effusions. 2. Emphysema. ACT 112: Negative or not required by law. The above report was generated using voice recognition software. It may contain grammatical, syntax or spelling errors. Electronically signed by: Victoriano Black M.D. 03/18/2023 10:[address] 03/18/23 09:23 CT cervical spine wo con CT DOSE: 1271.28 mGy.cm CLINICAL HISTORY: 87 years-old Female with Trauma. Acute head and neck injury status post fall COMPARISON: CT head and maxillofacial studies of same day, CTA chest 08/22/2022. TECHNIQUE: Multiple axial CT images of the cervical spine were obtained without contrast. A dose lowering technique was utilized adhering to the principles of ALARA. FINDINGS: Demineralized appearance of the bones with multilevel degenerative changes including prominently moderate intervertebral disc space narrowing and moderate to severe facet arthrosis. Mild cervical levoscoliosis. No acute cervical spine fracture or subluxation identified. Mild superior endplate compression at T3 and T4 is unchanged from the prior study. The cervical soft tissues appear unremarkable. No pneumothorax. Layering right greater than left pleural effusions. Nonspecific borderline enlarged mediastinal lymph nodes measuring up to approximately 10 mm. Atherosclerosis of the carotid arteries. Emphysema with bronchitis and intralobular septal thickening. IMPRESSION: 1. No acute fracture or subluxation. 2. Emphysema with bronchitis, probable interstitial pulmonary edema and layering pleural effusions. 3. Nonspecific borderline enlarged mediastinal lymph nodes. ACT 112: Negative or not required by law. The above report was generated using voice recognition software. It may contain grammatical, syntax or spelling errors. Electronically signed by: Victoriano Black M.D. 03/18/2023 10:[address] 03/18/23 09:23 CT SCAN OF THE FACIAL BONES WITHOUT IV CONTRAST CLINICAL HISTORY: Fall. Facial injury. COMPARISON STUDY: No priors. TECHNIQUE: High-resolution CT scan of the facial bones is performed. Images are reviewed in the axial, sagittal, and coronal planes. IV contrast was not administered for this examination. A dose lowering technique was utilized adhering to the principles of ALARA. FINDINGS: The skeletal structures are osteopenic. Question nondisplaced fracture of the right nasal bone. There is overlying soft tissue edema. There is fracture of the bony nasal septum which is deviated to the left. No additional facial bone fracture is seen. The bony orbits are intact and the orbital contents are within normal limits. The zygomatic arches and pterygoid plates are preserved. The maxilla and mandible are intact. There is anterior translation of both mandibular condyles. The patient is edentulous. There are no layering blood products within the paranasal sinuses. There is trace mucosal thickening within the ethmoid sinuses. There are many paranasal sinuses are clear. The mastoid air cells are well pneumatized. Cerumen is noted in the external auditory canals. The visualized calvarium and upper cervical spine are maintained. Partially imaged brain parenchyma is within normal limits. There is atherosclerotic calcification of the carotid bulbs. IMPRESSION: 1. Question a nondepressed fracture of the right nasal bone. There is fracture of the bony nasal septum, with nasal soft tissue edema. 2. No additional facial bone fracture is seen. 3. There is anterior translation of both mandibular condyles. This may be related to open mouth positioning. Correlate clinically for evidence of bilateral temporomandibular joint dislocation. ACT 112: Negative or not required by law. Electronically signed by: Srinivasan Sullivan M.D. 03/18/2023 10:[address] 03/18/23 09:23 CT head/brain wo con CLINICAL HISTORY: 87 years-old Female with Trauma. Acute head trauma TECHNIQUE: Multiple axial CT images of the head were obtained without contrast. A dose lowering technique was utilized adhering to the principles of ALARA. COMPARISON: CT cervical spine of same day, head CT 05/10/2022 FINDINGS: No acute intracranial hemorrhage, midline shift, intracranial mass, hydrocephalus, territorial ischemia or abnormal extra-axial collection. Involutional changes with chronic microvascular ischemic disease. Mildly motion degraded exam. The calvarium is intact. Partially imaged soft tissue swelling of the nasal bridge. The paranasal sinuses, mastoid air cells, and middle ear cavities are clear. IMPRESSION: No acute intracranial abnormality or calvarial fracture. ACT 112: Negative or not required by law. The above report was generated using voice recognition software. It may contain grammatical, syntax or spelling errors. Electronically signed by: Victoriano Black M.D. 03/18/2023 10:07 AM Code Status & VTE Plan Code Status DNR/DNI VTE Prophylaxis Plan VTE Prophylaxis will be ordered: Yes Supervising Physician Co-Signing Physician Notes Patient seen and examined, chart reviewed, case discussed with Hadley Rosales, PAC and I agree with the assessment and plan as above except as otherwise noted Labs and images reviewed Sandra is an 87-year-old female with a history of CHF, COPD, mitral regurg, CHF who had an unwitnessed fall 03/18 and was found to be hypoxic while in the ER. Patient did strike her face with fracture of the right nasal bone, cervical spine CT is with no acute fractures and CT of the head is without acute findings. 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 Was recently diagnosed with flu and discharged home without oxygen after reasonable recovery, however patient reports that she has felt more weak than normal over the last few weeks and in particular the last few days. Denies chest pain or chest pressure. On exam patient has trace crackles and light rales on the left, trace crackles which clear on the right. CXR shows pulmonary edema and small pleural effusions. Patient has grade 3 diastolic dysfunction with preserved EF on echo 01/2023. She has had some weight fluctuation, chart review dry weight appears to be approximately 45-46 kg although recently was around 4952. Admitting weight is 48 kg. Agree with treatment for acute exacerbation of CHF. Patient has improved with Lasix previously but is not on home Lasix. Will continue 40 mg IVtwice daily titrate to output to achieve total 1 L negative per day. Renal function is normal, blood pressure tolerating. No significant wheezing, will continue her home COPD meds. Agree with assessment and management above PG Care Time/CCT Total # of Minutes Spent Total Time Spent with Patient: Total time spent is greater than 50% in coordination of care (as documented) at patient's floor/unit and/or counseling patient: C[place] [address] INT INP/OBS CARE 2/55MIN Patient Type Established Medical Decision Making Moderate Complexity Diagnoses Acute exacerbation of CHF (congestive heart failure) I50.9 Fall W19.XXXA History of influenza Z87.09 COPD (chronic obstructive pulmonary disease) J44.9 Elevated troponin R77.8 Severe mitral regurgitation I34.0
[2023-03-18] MEDS ORDERED: guaiFENesin 600 MG TABCR PO PRN (12:30)
[2023-03-18] MEDS: FUROSEMIDE 40 MG/4 ML VIAL IV SCH (12:37)
[2023-03-18 13:00] LABS: Magnesium 1.9 mg/dl (1.7-2.4)
[2023-03-18 13:08] LABS: Troponin I High Sensitivity 25.1 pg/ml (0-14)
[2023-03-18 14:44] LABS: Influenza A virus by PCR Negative (Neg); Influenza B virus by PCR Negative (Neg); RSV by PCR Negative (Neg); SARS CoV2 RNA(COVID-19) Ceph NEGATIVE (Negative)
[2023-03-18] MEDS ORDERED: ALBUT/IPRATROP 3MG/0.5MG NEB 3 ML VIAL NEB PRN (15:51)
[2023-03-18] MEDS ORDERED: ALBUTEROL HFA 8 GM INHALER INH PRN (15:51)
[2023-03-18] MEDS ORDERED: ONDANSETRON INJ 2 MG/ML 2 ML VIAL IV PRN (15:51)
[2023-03-18] MEDS: ACETAMINOPHEN 325 MG TAB PO PRN (18:02)
--- NOTE | 2023-03-18 18:08 | Ultrasound Report ---
BILATERAL LOWER EXTREMITY VENOUS DOPPLER HISTORY: Bilateral leg pain. COMPARISON STUDY: None. FINDINGS: There is normal compressibility, flow, and augmentation within the bilateral lower extremit y deep venous systems. IMPRESSION: No DVT within the right or left lower extremity. ACT 112: Negative or not required by law. Electronically signed by: Hadley Jenkins M.D. 03/18/2023 6:07 PM
[2023-03-18 22:34] LABS: Appearance Urine Clear (Clear); Bilirubin Urine Negative (Negative); Blood Urine Negative (Negative); Color Urine Yellow; Glucose Urine UA Negative (Negative); Ketones Urine Negative (Negative); Leukocyte Esterase Urine Negative (Negative); Nitrite Urine Negative (Negative); Protein Urine Negative (Negative); Specific Gravity Urine 1.007 (1.000-1.030); Urobilinogen Urine Negative (Negative)
[2023-03-19] MEDS: ACETAMINOPHEN 325 MG TAB PO PRN ×2 (01:44→20:29)
[2023-03-19] MEDS ORDERED: FERROUS SULFATE 325 MG TAB PO ONE (01:44)
[2023-03-19 06:49] LABS: Anion Gap 9 (3-11); BUN Creatinine Ratio 17.5 (10-20); Blood Urea Nitrogen 21 mg/dl (6-23); Calcium 8.8 mg/dl (8.6-10.3); Carbon Dioxide 23 mmol/L (21-32); Chloride 105 mmol/L (98-107); Creatinine Clr Calc Pharmacy 24.6 ml/min; Est GFR (African American) 47.7 ml/min; Est GFR (Non-African American) 41.2 ml/min; Glucose 118 mg/dl (70-99(Fasting)); Sodium 137 mmol/L (136-145)
[2023-03-19 06:54] LABS: Basophils # (auto) 0.04 K/uL (0.00-0.20); Basophils % (auto) 0.7 %; Eosinophils # (auto) 0.08 K/uL (0.00-0.50); Eosinophils % (auto) 1.5 %; Hematocrit (blood only) 42.2 % (37.0-47.0); Hemoglobin 13.1 g/dl (12.0-16.0); Immature Granulocytes # (auto) 0.02 K/uL (0.01-0.20); Immature Granulocytes % (auto) 0.4 %; Lymphocytes # (auto) 1.04 K/uL (1.20-3.40); Lymphocytes % (auto) 19.4 %; Mean Corpuscular Hemoglobin 27.5 pg (25.0-34.0); Mean Corpuscular Volume 88.7 fL (80.0-100.0); Mean Platelet Volume 12.9 fL (9.4-12.4); Monocytes # (auto) 0.45 K/uL (0.11-0.59); Monocytes % (auto) 8.4 %; Neutrophils # (auto) 3.73 K/uL (1.40-6.50); Neutrophils % (auto) 69.6 %; Platelet Count 68 K/uL (130-400); Platelet Estimate Decreased (Normal); RDW Coefficient of Variation 17.2 % (11.5-14.5); RDW Standard Deviation 55.2 fL (36.4-46.3); Red Blood Count 4.76 M/uL (4.20-5.40); White Blood Count 5.36 K/ul (4.8-10.8)
[2023-03-19] MEDS: UMECLIDINIUM/VILANTEROL 62.5/25MCG 7 PUFFS/INHALER INH SCH (09:32)
[2023-03-19] MEDS: FUROSEMIDE 40 MG/4 ML VIAL IV SCH (09:32)
--- NOTE | 2023-03-19 19:52 | Hospitalist Progress Note ---
Date of Service March 19, 2023 Assessment & Plan (1) Acute on chronic diastolic CHF (congestive heart failure): Plan: Echocardiogram on 02/23/2023 revealed grade 3 diastolic dysfunction and marked CHF; severe MR; LVEF 50-55%. Presented with mild decompensation. s/p lasix yesterday and again this am. Stable BUN & Cr. Still with mild edema on exam. Cont lasix. (2) Severe mitral regurgitation: Plan: sees [facility] last saw them early 01/2023 was sent to tertiary care in the past to see if she was a candidate for valve repair - was felt NOT to be a candidate severe MR could be contributing to #1 above (3) Fall: Plan: Unwitnessed fall the morning of 03/18/23 Resulted in facial trauma - minor nasal fracture on right, periorbital ecchymoses b/l - but no other major injuries Orthostatic BPs negative Etiology of fall uncertain Weakness in the setting of recent fluA infection & UTI?? other? CT head and CT c-spine negative for acute findings PT/OT while here (4) History of influenza: Plan: Recent [facility] hospitalization for influenza A H1 2008 on 02/22/23 Some lingering cough from such but otherwise no COPD exacerbation No precautions needed (5) COPD (chronic obstructive pulmonary disease): Plan: Continue Anoro Ellipta No flare at this time (6) Elevated troponin: Plan: Troponin 21.5->22.2 on arrival no evidence of ACS Minimally elevated trop likely 2nd myocardial demand ischemia in setting of #1 (7) Thrombocytopenia: Plan: likely due to facial trauma with consumption repeat CBC am hold on chemical DVT proph for now (8) Nasal fracture: Plan: right mild likely to need no Rx (9) Facial trauma: Plan: as above 2nd fall Plan PT, OT evals left message for pt's daughter on her voicemail this evening Admission and Anticipated Discharge Date Admission Date: March 18, 2023 Subjective tele overnight - NSR, PACs, periods of bigeminy patient eating lunch during the visit she denies any complaints despite her head injury she has no headache denies nasal pain denies nosebleed denies pain with chewing denies any dyspnea at rest she can't recall how she fell at home doesn't remember being dizzy was able to tell me she lives with her and daughter and grandchild denies pain in any other location - no hip pain, back pain, etc Review of Systems Review of Systems: gen - no fevers or chills cv - no chest pain pulm - some cough but denies dyspnea GI - no abd pain or N/V Physical Exam Physical Exam: gen - pleasant, NAD eyes - extensive periorbital ecchymoses b/l HENT - nasal bone on right with mild swelling; right nare with old dried blood; mouth - MMM face - no pain over either TMJ b/l neck - no JVD heart - RRR, s1 s2, 3/6 holosystolic murmur LLSB --> axillae lungs - b/l basilar rales; no wheeze abd - soft NT ND BS+ ext - 1+ edema b/l, pulses 2+ b/l musculo - b/l hips without pain with passive ROM; b/l arms without signs of trauma psych - a/o x 3 Results & Data Results & Data Vital Signs (Past 12 Hours) Vital Signs Temp Pulse Pulse Resp BP Pulse Ox O2 Del Method 03/19/23 16:00 Nasal Cannula 03/19/23 15:00 36.3 C L 92 H 18 105/66 91 Nasal Cannula 03/19/23 14:48 81 03/19/23 11:09 36.3 C L 92 H 18 116/79 94 Room Air 03/19/23 11:03 Nasal Cannula 03/19/23 10:57 82 03/19/23 07:59 36.5 C 88 18 103/68 95 Nasal Cannula O2 Flow Rate 03/19/23 16:00 3 03/19/23 15:00 3 03/19/23 14:48 03/19/23 11:09 03/19/23 11:03 3 03/19/23 10:57 03/19/23 07:59 3 Laboratory Results Laboratory Results - last 24 hr 03/18/23 03/19/23 03/19/23 Unknown 05:32 08:06 WBC 5.36 RBC 4.76 Hgb 13.1 Hct 42.2 MCV 88.7 MCH 27.5 MCHC 31.0 L RDW Std Deviation 55.2 H RDW Coeff of Selena 17.2 H Plt Count 68 L D MPV 12.9 H Immature Gran % (Auto) 0.4 Neut % (Auto) 69.6 Lymph % (Auto) 19.4 [place] % (Auto) 8.4 Eos % (Auto) 1.5 Baso % (Auto) 0.7 Neut # (Auto) 3.73 Lymph # (Auto) 1.04 L [place] # (Auto) 0.45 Eos # (Auto) 0.08 Baso # (Auto) 0.04 Immature Gran # (Auto) 0.02 Platelet Estimate Decreased L Sodium 137 Potassium TNP 4.0 Chloride 105 Carbon Dioxide 23 Anion Gap 9 BUN 21 Creatinine 1.20 Est Cr Clr Drug Dosing 24.6 Est GFR ( Amer) 47.7 Est GFR (Non-Af Amer) 41.2 BUN/Creatinine Ratio 17.5 Glucose 118 H Calcium 8.8 Urine Color Yellow Urine Appearance Clear Urine pH 7.0 Ur Specific [place] 1.007 Urine Protein Negative Urine Glucose (UA) Negative Urine Ketones Negative Urine Blood Negative Urine Nitrite Negative Urine Bilirubin Negative Urine Urobilinogen Negative Ur Leukocyte Esterase Negative PG Care Time/CCT Total # of Minutes Spent Total Time Spent with Patient: Total time spent is greater than 50% in coordination of care (as documented) at patient's floor/unit and/or counseling patient: Coding Level of Care Code 86684 SUB INP/OBS CARE 3/50MIN Diagnoses Acute on chronic diastolic CHF (congestive heart failure) I50.33 Severe mitral regurgitation I34.0 Fall W19.XXXA History of influenza Z87.09 COPD (chronic obstructive pulmonary disease) J44.9 Elevated troponin R77.8 Thrombocytopenia D69.6 Nasal fracture S02.2XXA Facial trauma S09.93XA
--- NOTE | 2023-03-20 05:51 | Electrocardiogram Report ---
Test Reason : Blood Pressure : / mmHG Vent. Rate : 089 BPM Atrial Rate : 089 BPM P-R Int : 138 ms QRS Dur : 120 ms QT Int : 390 ms P-R-T Axes : 106 049 029 degrees QTc Int : 474 ms Sinus rhythm with frequent Premature ventricular complexes Right bundle branch block Abnormal ECG When compared with ECG of 22-FEB-2023 22:42, Premature ventricular complexes are now Present Confirmed by Scotty Swanson ([id number]) on 03/20/2023 5:50:53 AM Referred By: Confirmed By:Scotty Swanson
[2023-03-20] MEDS: UMECLIDINIUM/VILANTEROL 62.5/25MCG 7 PUFFS/INHALER INH SCH (09:00)
[2023-03-20] MEDS: FUROSEMIDE 40 MG/4 ML VIAL IV SCH (09:01)
[2023-03-20 09:05] LABS: Basophils % (auto) 1.8 %; Eosinophils # (auto) 0.26 K/uL (0.00-0.50); Eosinophils % (auto) 4.7 %; Hematocrit (blood only) 42.5 % (37.0-47.0); Hemoglobin 13.5 g/dl (12.0-16.0); Immature Granulocytes # (auto) 0.02 K/uL (0.01-0.20); Immature Granulocytes % (auto) 0.4 %; Lymphocytes # (auto) 1.16 K/uL (1.20-3.40); Lymphocytes % (auto) 20.9 %; Mean Corpuscular Hemoglobin 27.3 pg (25.0-34.0); Mean Corpuscular Hgb Conc 31.8 g/dL (32.0-36.0); Mean Platelet Volume 11.8 fL (9.4-12.4); Monocytes # (auto) 0.54 K/uL (0.11-0.59); Monocytes % (auto) 9.7 %; Neutrophils # (auto) 3.46 K/uL (1.40-6.50); Neutrophils % (auto) 62.5 %; Platelet Count 138 K/uL (130-400); RDW Coefficient of Variation 17.1 % (11.5-14.5); Red Blood Count 4.94 M/uL (4.20-5.40); White Blood Count 5.54 K/ul (4.8-10.8)
[2023-03-20 09:14] LABS: Calcium 9.7 mg/dl (8.6-10.3); Creatinine Clr Calc Pharmacy 22.6 ml/min; Est GFR (African American) 42.9 ml/min; Potassium 4.3 mmol/L (3.5-5.1)
--- NOTE | 2023-03-20 15:16 | Hospitalist Progress Note ---
Date of Service March 20, 2023 Assessment & Plan (1) Acute on chronic diastolic CHF (congestive heart failure): Plan: Echocardiogram on 02/23/2023 revealed grade 3 diastolic dysfunction and marked CHF; severe MR; LVEF 50-55%. Presented with mild decompensation. s/p lasix yesterday and again this am. BUN and Cr rising - no further IV lasix after today's dose. BMP am. At discharge would send home with lasix on PRN basis for edema/weight gain. She will be sensitive to diuretics given her grade 3 diastolic dysfunction and severe MR. (2) Severe mitral regurgitation: Plan: sees [facility] last saw them early 01/2023 was sent to tertiary care in the past to see if she was a candidate for valve repair - was felt NOT to be a candidate severe MR could be contributing to #1 above (3) Fall: Plan: Unwitnessed fall the morning of 03/18/23 Resulted in facial trauma - minor nasal fracture on right, periorbital ecchymose s b/l - but no other major injuries Orthostatic BPs negative Etiology of fall uncertain Weakness in the setting of recent fluA infection & UTI?? other? CT head and CT c-spine negative for acute findings PT/OT while here -- passed evals, cleared for home with family (4) History of influenza: Plan: Recent [facility] hospitalization for influenza A H1 2008 on 02/22/23 Some lingering cough from such but otherwise no COPD exacerbation No precautions needed (5) COPD (chronic obstructive pulmonary disease): Plan: Continue Anoro Ellipta No flare at this time (6) Elevated troponin: Plan: Troponin 21.5->22.2 on arrival no evidence of ACS Minimally elevated trop likely 2nd myocardial demand ischemia in setting of #1 (7) Thrombocytopenia: Plan: likely due to facial trauma with consumption platelets IMPROVED today repeat CBC am (8) Nasal fracture: Plan: right mild likely to need no Rx ice packs prn send to ENT post-d/c (9) Facial trauma: Plan: as above 2nd fall Plan PT, OT evals passed updated pt's daughter this evening if she has good night, labs are stable in am, etc can likely d/c home tomorrow Admission and Anticipated Discharge Date Admission Date: March 18, 2023 Subjective tele - NSR pt w/o any complaints no dyspnea has mild cough - this is chronic and typically has it daily at home still no facial pain or headache denies pain any other location Review of Systems Review of Systems: cv - no chest pain, no orthopnea; edema resolved pulm - no dyspnea GI - no abd pain Physical Exam Physical Exam: gen - pleasant, NAD - looks good today eyes - extensive periorbital ecchymoses b/l - improving HENT - nasal bone on right with mild-mod swelling; right nare still with old dried blood; mouth - MMM neck - no JVD heart - RRR, s1 s2, 3-4/6 holosystolic murmur LLSB --> axillae lungs - b/l basilar rales nearly resolved; no wheezing abd - soft NT ND BS+ ext - NO edema b/l, pulses 2+ b/l Results & Data Results & Data Vital Signs (Past 12 Hours) Vital Signs Temp Pulse Pulse Resp BP BP Pulse Ox 03/20/23 14:01 79 03/20/23 11:32 36.5 C 79 18 108/67 93 03/20/23 09:18 98 03/20/23 08:12 36.4 C L 78 18 105/67 97 03/20/23 07:30 03/20/23 05:57 78 03/20/23 05:57 36.4 C L 79 14 102/62 96 O2 Del Method O2 Flow Rate 03/20/23 14:01 03/20/23 11:32 Room Air 03/20/23 09:18 Room Air, Nasal Cannula 2 03/20/23 08:12 Nasal Cannula 2 03/20/23 07:30 Nasal Cannula 2 03/20/23 05:57 03/20/23 05:57 Nasal Cannula 2.5 Laboratory Results Laboratory Results - last 24 hr 03/20/23 08:32 WBC 5.54 RBC 4.94 Hgb 13.5 Hct 42.5 MCV 86.0 MCH 27.3 MCHC 31.8 L RDW Std Deviation 53.0 H RDW Coeff of Selena 17.1 H Plt Count 138 D MPV 11.8 Immature Gran % (Auto) 0.4 Neut % (Auto) 62.5 Lymph % (Auto) 20.9 [place] % (Auto) 9.7 Eos % (Auto) 4.7 Baso % (Auto) 1.8 Neut # (Auto) 3.46 Lymph # (Auto) 1.16 L [place] # (Auto) 0.54 Eos # (Auto) 0.26 Baso # (Auto) 0.10 Immature Gran # (Auto) 0.02 Sodium 142 Potassium 4.3 Chloride 104 Carbon Dioxide 33 H Anion Gap 5 BUN 21 Creatinine 1.31 H Est Cr Clr Drug Dosing 22.6 Est GFR ( Amer) 42.9 Est GFR (Non-Af Amer) 37.0 BUN/Creatinine Ratio 16.0 Glucose 109 H Calcium 9.7 PG Care Time/CCT Total # of Minutes Spent Total Time Spent with Patient: Total time spent is greater than 50% in coordination of care (as documented) at patient's floor/unit and/or counseling patient: Coding Level of Care Code 82980 SUB INP/OBS CARE 2/35MIN Diagnoses Acute on chronic diastolic CHF (congestive heart failure) I50.33 Severe mitral regurgitation I34.0 Fall W19.XXXA History of influenza Z87.09 COPD (chronic obstructive pulmonary disease) J44.9 Elevated troponin R77.8 Thrombocytopenia D69.6 Nasal fracture S02.2XXA Facial trauma S09.93XA
[2023-03-20] MEDS: ACETAMINOPHEN 325 MG TAB PO PRN (21:00)
[2023-03-21] MEDS: ACETAMINOPHEN 325 MG TAB PO PRN (04:53)
[2023-03-21 06:03] LABS: Basophils # (auto) 0.09 K/uL (0.00-0.20); Basophils % (auto) 1.5 %; Eosinophils # (auto) 0.24 K/uL (0.00-0.50); Hematocrit (blood only) 42.7 % (37.0-47.0); Hemoglobin 13.1 g/dl (12.0-16.0); Immature Granulocytes # (auto) 0.02 K/uL (0.01-0.20); Immature Granulocytes % (auto) 0.3 %; Lymphocytes # (auto) 1.67 K/uL (1.20-3.40); Lymphocytes % (auto) 27.7 %; Mean Corpuscular Hemoglobin 27.1 pg (25.0-34.0); Mean Corpuscular Hgb Conc 30.7 g/dL (32.0-36.0); Mean Corpuscular Volume 88.4 fL (80.0-100.0); Monocytes # (auto) 0.61 K/uL (0.11-0.59); Monocytes % (auto) 10.1 %; Neutrophils % (auto) 56.4 %; Platelet Count 148 K/uL (130-400); RDW Coefficient of Variation 17.1 % (11.5-14.5); RDW Standard Deviation 54.9 fL (36.4-46.3); Red Blood Count 4.83 M/uL (4.20-5.40); White Blood Count 6.03 K/ul (4.8-10.8)
[2023-03-21 06:33] LABS: Calcium 9.4 mg/dl (8.6-10.3); Creatinine Clr Calc Pharmacy 26.9 ml/min; Est GFR (Non-African American) 45.7 ml/min; Potassium 3.3 mmol/L (3.5-5.1)
[2023-03-21] MEDS ORDERED: POTASSIUM CHLORIDE CRTAB 20 MEQ TABCR PO STA (08:14)
[2023-03-21] MEDS ORDERED: FUROSEMIDE 20 MG TAB PO ONE (08:14)
[2023-03-21] MEDS: UMECLIDINIUM/VILANTEROL 62.5/25MCG 7 PUFFS/INHALER INH SCH (08:49)
[2023-03-21 09:10] LABS: Magnesium 1.9 mg/dl (1.7-2.4)
== END 2023-03-21 14:40 | disposition home or self-care (01) | DRG 292 ==
LOC: ED 07:56 → SUATTDRO 12:13 → 2N 12:13

== ENCOUNTER 2023-06-21 15:32 | Inpatient (IN) ==
--- NOTE | 2023-06-21 16:42 | Emergency Department Note ---
Impression & Plan Transaminitis Admission ED Provider Note HPI: History obtained from patient's daughter at the bedside The patient is a 87-year-old female who presents to the emergency department with her daughter and grandson at the bedside over concern for altered mental status and a newly jaundiced appearance. Patient's daughter states that over the past 1 to 2 weeks the patient has been increasingly weak, she has been seemingly confused and has been making statements that are incoherent. Patient has also developed a jaundiced appearance just over the past 1 to 2 weeks. She has not had any vomiting. On arrival here to the ED the patient is very frail appearing, she is hemodynamically stable, she is oriented to place and with some difficulty oriented to year. Patient does not have any obvious focal deficits on arrival. Patient is afebrile on arrival and saturating well on room air. ROS: - Per HPI Differential Diagnosis: Liver cancer with acute liver failure, choledocholithiasis, acute cholecystitis, acute cholangitis, acute pancreatitis, cirrhosis, acute hepatitis, hepatic encephalopathy, amongst other potential pathologies. *Outpatient medications and allergy history reviewed. PE: General: Alert, frail-appearing, jaundiced HEENT: Normocephalic, trachea midline Eyes: Extraocular eye movement is intact, no scleral erythema Pulmonary: Clear to auscultation bilaterally, no wheezing Cardio: Regular rate and rhythm GI: Abdomen is soft to palpation : No suprapubic tenderness MSK: No evidence of trauma or malformation of the extremities, no edema Skin: Ulcerations of the bilateral lower extremities with mild surrounding erythema, no purulent drainage, no active bleeding, otherwise no evidence of rash Neuro: Alert, no focal deficits Psychiatric: Cooperative INDEPENDENT INTERPRETATIONS: monitoring and evaluation advisor: (As interpreted by myself): - An order was placed for continuous cardiac monitoring - Patient was noted to be in sinus rhythm with a rate of 80 EKG: (As interpreted by myself): 2 rate: 85 Rhythm: Normal sinus rhythm Intervals: QRS 130 ms, QTc 502 ms, LA within normal limits ST changes: No ST elevation Time: 1614 Chest x-ray: (As interpreted by myself): Mild pulmonary edema Interventions provided in ED: -IV fluid bolus Medical Decision Making: IV was established and lab work obtained, patient was placed on residential monitor. Lab work shows no leukocytosis, hemoglobin is normal, platelet count is reduced at 81 which is beyond the patient's baseline, CMP shows mild hyponatremia 129, metabolic acidosis with a serum bicarbonate level of 15, BUN of 62, creatinine 1.63, lactic acid is elevated at 4.3, bilirubin is elevated at 4.7, AST of 142, ALT of 106, alk phos is normal. Ammonia level is normal. Troponin is mildly elevated at 50.7, BNP is markedly elevated greater than upper limit of normal, procalcitonin is low, urinalysis does not show any obvious infection. COVID-19 testing and influenza testing are negative. CT imaging of the head does not show any acute intracranial process, CT imaging of the abdomen pelvis shows some periportal edema without other critical findings noted by the interpreting radiologist. This was performed without contrast given the patient's renal failure. Despite IV fluid resuscitation the patient's lactic acid did uptrend. On my reassessment the patient remains hemodynamically stable. Unclear source for all of her symptoms at this time however with elevated troponin, transaminitis and elevated bilirubin, in addition to uptrending lactic acid she will require admission. Case was discussed with the on-call hospitalist, Dr. Conte, who accepted the patient for further management. According to the patient and her family at the bedside she is to be DNR/DNI if her status decompensates. This was updated in the chart by the admitting team. Consultants/Discussions held with other healthcare providers: -Hospitalist, Dr. Conte Disposition discussion held by myself with: -Patient, patient's daughter, patient's grandson Diagnosis: 1. Elevated troponin, acute 2. Transaminitis, acute, nonspecific 3. Hyperbilirubinemia, acute, nonspecific 4. Lactic acidosis, acute 5. Jaundice, acute 6. Acute kidney injury Disposition: Admission Pascual Mayo DO Emergency Medicine Past Med/Surg History Medical History (Updated 06/21/23 @ 21:45 by Pascual Mayo DO) Elevated troponin History of cigarette smoking COVID Emphysema lung Severe mitral regurgitation Surgical History No pertinent past surgical history Family History Denies family history of Ovarian cancer Prostate cancer Breast cancer Lung cancer Colorectal cancer Social History Smoking Status: Former smoker Tobacco Type: Cigarettes Age Started Using Tobacco: 17; Age Quit Using Tobacco: 85; packs per day: 1; Second Hand Exposure: No; Do You Dip or Chew Tobacco: No; Hx Alcohol Use: No Hx Substance Use: No Preferred Language: Spanish Communication Ability: Effective Visual Impairment: No Limitations Hearing Ability: Normal Tutor Coordinator Required: No Beliefs That Will Affect Care: None marital status: Current Living Situation: Spouse and Family Current Living Situation Comment: Lives with Michel, daughter Charu, and grandson Eddi current occupational 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 How many Children do You have: 1 Feels Safe at Home: Yes Childhood Exposure to Second-Hand Smoke: Yes Diet: regular caffeine: Yes Dental Care, Regularly: No Physical Activity Frequency: Daily Physical Activity Frequency Comment: watched her great granddaughter daily, active >90 min daily Seatbelt Use: always Sunscreen Use: No Assistive Devices: None Allergies Allergies Allergy/AdvReac Type Severity Reaction Status Date / Time No Known Allergies Allergy Verified 06/21/23 19:54 Home Meds Previous Rx's Medication Instructions Recorded umeclidinium 62.5 mcg-vilanterol 1 inh inhalation DAILY #60 ea 05/28/23 25 mcg/actuation powdr for inhalation (Anoro Ellipta) apixaban 2.5 mg tablet (Eliquis) 2.5 mg PO BID #180 tabs 06/04/23 Results & Data (ED) Vital Signs Vital Signs - 24 hr 06/21/23 15:35 06/21/23 15:41 06/21/23 17:11 Temperature 35.6 C L Temperature Source Oral Pulse Rate 94 H 79 Pulse Rhythm Regular Pulse Strength Normal Respiratory Rate 18 Respiratory Effort / Characteristics Non-Labored Spontaneous Respiratory Depth Normal Respiratory Pattern Regular Blood Pressure 104/72 Blood Pressure Mean 82 Blood Pressure Position Sitting Pulse Oximetry 96 Oxygen Delivery Method Room Air Room Air Sepsis Recent Fever Within 48 Hours No Sepsis New/Unexplained Change in Mental Status No Sepsis Action Taken by Nursing No Action Required 06/21/23 17:11 06/21/23 17:29 06/21/23 17:29 Temperature Temperature Source Pulse Rate 87 73 Pulse Rhythm Pulse Strength Respiratory Rate 26 H 21 Respiratory Effort / Characteristics Respiratory Depth Respiratory Pattern Blood Pressure 98/57 L Blood Pressure Mean 69 Blood Pressure Position Pulse Oximetry Oxygen Delivery Method Sepsis Recent Fever Within 48 Hours Sepsis New/Unexplained Change in Mental Status Sepsis Action Taken by Nursing 06/21/23 17:30 06/21/23 17:31 06/21/23 17:31 Temperature Temperature Source Pulse Rate 59 L 82 Pulse Rhythm Pulse Strength Respiratory Rate 16 20 Respiratory Effort / Characteristics Respiratory Depth Respiratory Pattern Blood Pressure 107/72 Blood Pressure Mean 78 Blood Pressure Position Pulse Oximetry Oxygen Delivery Method Sepsis Recent Fever Within 48 Hours Sepsis New/Unexplained Change in Mental Status Sepsis Action Taken by Nursing 06/21/23 18:00 06/21/23 18:01 06/21/23 18:01 Temperature Temperature Source Pulse Rate 82 64 Pulse Rhythm Pulse Strength Respiratory Rate 12 27 H Respiratory Effort / Characteristics Respiratory Depth Respiratory Pattern Blood Pressure 113/72 Blood Pressure Mean 101 Blood Pressure Position Pulse Oximetry Oxygen Delivery Method Sepsis Recent Fever Within 48 Hours Sepsis New/Unexplained Change in Mental Status Sepsis Action Taken by Nursing 06/21/23 18:30 06/21/23 18:30 06/21/23 19:00 Temperature Temperature Source Pulse Rate 84 69 Pulse Rhythm Pulse Strength Respiratory Rate 14 15 Respiratory Effort / Characteristics Respiratory Depth Respiratory Pattern Blood Pressure 129/91 Blood Pressure Mean 99 Blood Pressure Position Pulse Oximetry Oxygen Delivery Method Sepsis Recent Fever Within 48 Hours Sepsis New/Unexplained Change in Mental Status Sepsis Action Taken by Nursing 06/21/23 21:17 Temperature Temperature Source Pulse Rate 78 Pulse Rhythm Pulse Strength Respiratory Rate Respiratory Effort / Characteristics Respiratory Depth Respiratory Pattern Blood Pressure Blood Pressure Mean Blood Pressure Position Pulse Oximetry Oxygen Delivery Method Sepsis Recent Fever Within 48 Hours Sepsis New/Unexplained Change in Mental Status Sepsis Action Taken by Nursing Laboratory Data 06/21/23 17:17 06/21/23 17:17 Lab Results 06/21/23 06/21/23 06/21/23 Range/Units 17:17 19:05 19:50 WBC 7.62 (4.8-10.8) K/ul RBC 5.24 (4.20-5.40) M/uL Hgb 13.4 (12.0-16.0) g/dl Hct 43.2 (37.0-47.0) % MCV 82.4 (80.0-100.0) fL MCH 25.6 (25.0-34.0) pg MCHC 31.0 L (32.0-36.0) g/dL RDW Std Deviation 62.4 H (36.4-46.3) fL RDW Coeff of Selena 22.2 H (11.5-14.5) % Plt Count 81 L (130-400) K/uL Immature Gran % (Auto) 0.5 % Neut % (Auto) 77.5 % Lymph % (Auto) 14.8 % [place] % (Auto) 6.7 % Eos % (Auto) 0.4 % Baso % (Auto) 0.1 % Neut # (Auto) 5.90 (1.40-6.50) K/uL Lymph # (Auto) 1.13 L (1.20-3.40) K/uL [place] # (Auto) 0.51 (0.11-0.59) K/uL Eos # (Auto) 0.03 (0.00-0.50) K/uL Baso # (Auto) 0.01 (0.00-0.20) K/uL Immature Gran # (Auto) 0.04 (0.01-0.20) K/uL Absolute Nucleated RBC 0.13 H (0.00-0.12) K/uL Nucleated RBC % (auto) 1.7 % Polychromasia 1+ Anisocytosis Present Macrocytosis Present Tear Drop Cells 1+ Ovalocytes 1+ PT 27.4 H (9.0-12.0) Seconds INR 2.7 H (0.9-1.1) APTT 41 H (21-31) Seconds PTT Ratio 1.5 Sodium 129 L (136-145) mmol/L Potassium 4.5 (3.5-5.1) mmol/L Chloride 102 (98-107) mmol/L Carbon Dioxide 15 L (21-32) mmol/L Anion Gap 12 H (3-11) BUN 62 H (6-23) mg/dl Creatinine 1.63 H (0.6-1.2) mg/dl Est Cr Clr Drug Dosing Not Reportable Est GFR ( Amer) 33.0 ml/min Est GFR (Non-Af Amer) 28.4 ml/min BUN/Creatinine Ratio 38.0 H (10-20) Glucose 151 H (70-99(Fasting)) mg/dl Lactate 4.3 H* 4.9 H* (0.4-2.0) mmol/L Calcium 9.7 (8.6-10.3) mg/dl Magnesium 2.1 (1.7-2.4) mg/dl Total Bilirubin 4.7 H (0.2-1.0) mg/dl AST 142 H (13-39) U/L ALT 106 H (7-52) U/L Alkaline Phosphatase 88 (34-104) U/L Ammonia 37.0 (18-72) umol/L Troponin I High Sens 50.7 H* 54.1 H* (0-14) pg/ml B-Natriuretic Peptide > 4700 H (0-100) pg/ml Total Protein 5.8 L (6.0-8.3) gm/dl Albumin 3.1 L (3.4-5.0) gm/dl Globulin 2.7 (2.5-4.0) gm/dl Albumin/Globulin Ratio 1.1 (0.9-2) Procalcitonin 0.44 (0-0.5) ng/ml Urine Color Dark Yellow Urine Appearance Clear (Clear) Urine pH 5.0 (4.5-7.5) Ur Specific [place] 1.015 (1.000-1.030) Urine Protein 1+ H (Negative) Urine Glucose (UA) Negative (Negative) Urine Ketones Negative (Negative) Urine Blood Negative (Negative) Urine Nitrite Negative (Negative) Urine Bilirubin 1+ H (Negative) Urine Urobilinogen Negative (Negative) Ur Leukocyte Esterase Negative (Negative) Urine WBC (Auto) 0-5 (0-5) /hpf Urine RBC (Auto) 0-2 (0-2) /hpf U Hyaline Cast (Auto) 6-10 H (0-2) /lpf U Epithel Cells (Auto) 3-5 H (0-2) /hpf Urine Bacteria (Auto) None Seen (None Seen) SARS-CoV-2 (PCR) (Negative) Influenza Type A (PCR) (Neg) Influenza Type B (PCR) (Neg) RSV (RT-PCR) (Neg) 06/21/23 Range/Units Unknown WBC (4.8-10.8) K/ul RBC (4.20-5.40) M/uL Hgb (12.0-16.0) g/dl Hct (37.0-47.0) % MCV (80.0-100.0) fL MCH (25.0-34.0) pg MCHC (32.0-36.0) g/dL RDW Std Deviation (36.4-46.3) fL RDW Coeff of Selnea (11.5-14.5) % Plt Count (130-400) K/uL Immature Gran % (Auto) % Neut % (Auto) % Lymph % (Auto) % [place] % (Auto) % Eos % (Auto) % Baso % (Auto) % Neut # (Auto) (1.40-6.50) K/uL Lymph # (Auto) (1.20-3.40) K/uL [place] # (Auto) (0.11-0.59) K/uL Eos # (Auto) (0.00-0.50) K/uL Baso # (Auto) (0.00-0.20) K/uL Immature Gran # (Auto) (0.01-0.20) K/uL Absolute Nucleated RBC (0.00-0.12) K/uL Nucleated RBC % (auto) % Polychromasia Anisocytosis Macrocytosis Tear Drop Cells Ovalocytes PT (9.0-12.0) Seconds INR (0.9-1.1) APTT (21-31) Seconds PTT Ratio Sodium (136-145) mmol/L Potassium (3.5-5.1) mmol/L Chloride (98-107) mmol/L Carbon Dioxide (21-32) mmol/L Anion Gap (3-11) BUN (6-23) mg/dl Creatinine (0.6-1.2) mg/dl Est Cr Clr Drug Dosing Est GFR ( Amer) ml/min Est GFR (Non-Af Amer) ml/min BUN/Creatinine Ratio (10-20) Glucose (70-99(Fasting)) mg/dl Lactate (0.4-2.0) mmol/L Calcium (8.6-10.3) mg/dl Magnesium (1.7-2.4) mg/dl Total Bilirubin (0.2-1.0) mg/dl AST (13-39) U/L ALT (7-52) U/L Alkaline Phosphatase (34-104) U/L Ammonia (18-72) umol/L Troponin I High Sens (0-14) pg/ml B-Natriuretic Peptide (0-100) pg/ml Total Protein (6.0-8.3) gm/dl Albumin (3.4-5.0) gm/dl Globulin (2.5-4.0) gm/dl Albumin/Globulin Ratio (0.9-2) Procalcitonin (0-0.5) ng/ml Urine Color Urine Appearance (Clear) Urine pH (4.5-7.5) Ur Specific [place] (1.000-1.030) Urine Protein (Negative) Urine Glucose (UA) (Negative) Urine Ketones (Negative) Urine Blood (Negative) Urine Nitrite (Negative) Urine Bilirubin (Negative) Urine Urobilinogen (Negative) Ur Leukocyte Esterase (Negative) Urine WBC (Auto) (0-5) /hpf Urine RBC (Auto) (0-2) /hpf U Hyaline Cast (Auto) (0-2) /lpf U Epithel Cells (Auto) (0-2) /hpf Urine Bacteria (Auto) (None Seen) SARS-CoV-2 (PCR) NEGATIVE (Negative) Influenza Type A (PCR) Negative (Neg) Influenza Type B (PCR) Negative (Neg) RSV (RT-PCR) Negative (Neg) Administered Medications Discontinued Medications Sodium Chloride (Nss) 500 mls @ 999 mls/hr IV .Q31M ONE Stop: 06/21/23 17:10 Last Infusion: 06/21/23 19:23 Dose: Infused Documented By: E Admin: 06/21/23 18:35 Dose: 999 mls/hr Documented By: Brian Sodium Chloride (Nss) 1,000 mls @ 999 mls/hr IV .Q1H1M ONE Stop: 06/21/23 18:46 Last Infusion: 06/21/23 19:55 Dose: Infused Documented By: E Admin: 06/21/23 18:36 Dose: 999 mls/hr Documented By: Brian Imaging Data Radiologist's Impression: Chest X-Ray 06/21/23 15:41 XR chest 1V portable CLINICAL HISTORY: Sepsis. COMPARISON STUDY: Chest CT August 22, 2022. Chest radiograph March 18, 2023. FINDINGS: There is no pneumothorax or pleural effusion. Moderate cardiomegaly is unchanged. There is extensive mitral annular calcification. Prominence of the bilateral jalyn is likely due to dilated central pulmonary arteries. There is mild interstitial thickening. Underlying emphysema is present. There is no consolidation to suggest pneumonia. IMPRESSION: Cardiomegaly. Interstitial thickening favors mild pulmonary edema. ACT 112: Negative or not required by law. Electronically signed by: Minh Fajardo M.D. 06/21/2023 6:[address] 06/21/23 16:39 Exam(s): CT HEAD Without Contrast EXAM: CT Head Without Intravenous Contrast CLINICAL HISTORY: Reason for exam: AMS. TECHNIQUE: Axial computed tomography images of the head/brain without intravenous contrast. CTDI is 37.95 mGy and DLP is 546.36 mGy-cm. Automated exposure control was utilized for the study. A dose lowering technique was utilized adhering to the principles of ALARA. COMPARISON: CT head on 03/18/2023 FINDINGS: Brain: No acute infarct or hemorrhage identified. No extra-axial fluid collection. No mass effect or midline shift. Scattered areas of hypoattenuation in the supratentorial white matter likely represent chronic small vessel ischemic changes. Ventricles and sulci: Prominence of the ventricles and sulci is likely secondary to cerebral volume loss. Bones: Normal. No bony lesion or acute fracture. Subcutaneous tissues: Normal. Sinuses: Normal. No air-fluid levels or mucosal thickening. Mastoid air cells: Normal. Orbits: Grossly unremarkable. Other: Atherosclerotic calcifications in the intracranial vasculature. IMPRESSION: 1. No acute intracranial abnormality. 2. Chronic small vessel ischemic changes and cerebral volume loss. Electronically signed by: Marlee Bowman M.D. 06/21/23 20:19 PM Abdomen/Pelvis CT 06/21/23 19:05 Exam(s): CT ABDOMEN + PELVIS Without Contrast EXAM: CT Abdomen and Pelvis Without Intravenous Contrast CLINICAL HISTORY: Reason for exam: Elevated bilirubin, transaminitis, jaundice. TECHNIQUE: Axial computed tomography images of the abdomen and pelvis without intravenous contrast. CTDI is 12.02 mGy and DLP is 544.47 mGy-cm. Automated exposure control was utilized for the study. A dose lowering technique was utilized adhering to the principles of ALARA. COMPARISON: None FINDINGS: Lung bases: Emphysematous changes. No consolidation. Heart: Mitral annular calcifications. Cardiomegaly. ABDOMEN: Liver: Nonspecific periportal edema. Gallbladder and bile ducts: Unremarkable. No calcified stones. No ductal dilation. Pancreas: Unremarkable. No ductal dilation. Spleen: Unremarkable. No splenomegaly. Adrenals: Unremarkable. No mass. Kidneys and ureters: Unremarkable. No hydronephrosis or stone. Stomach and bowel: Evaluation of the stomach. Severe underdistention. Diverticulosis without evidence of diverticulitis. No small bowel obstruction. PELVIS: Appendix: No findings to suggest acute appendicitis. Bladder: Unremarkable. No stones. Reproductive: Unremarkable as visualized. ABDOMEN and PELVIS: Intraperitoneal space: Unremarkable. No free air. No significant fluid collection. Bones/joints: There are degenerative changes of the spine. No acute fracture. No dislocation. Soft tissues: Body wall edema. Vasculature: Phleboliths in pelvis. Atherosclerotic changes of the vasculature. No aortic aneurysm. Lymph nodes: Unremarkable. No enlarged lymph nodes. IMPRESSION: Nonspecific periportal edema. Electronically signed by: Marlee Bowman M.D. 06/21/23 20:11 PM Discharge Plan Visit Data Chief Complaint: Skin Problem Stated Complaint: black lesions and sores on legs and feet ED Provider: Pascual Mayo Discharge Problem: Transaminitis Forms Stand Alone Forms: [facility] [employer] Enabled Employment Prescriptions Prescriptions: No Action Anoro Ellipta 62.5-25 mcg/actuation blister with device 1 inh inhalation DAILY Qty: 60 3RF Eliquis 2.5 mg tablet 2.5 mg PO BID Qty: 180 3RF Referrals Referrals: Caty Rabago MD [Primary Care Provider] -
--- NOTE | 2023-06-21 18:07 | XRay Report ---
XR chest 1V portable CLINICAL HISTORY: Sepsis. COMPARISON STUDY: Chest CT August 22, 2022. Chest radiograph March 18, 2023. FINDINGS: There is no pneumothorax or pleural effusion. Moderate cardiomegaly is unchanged. There is extensive mitral annular calcification. Prominence of the bilateral jalyn is likely due to dilated sarah tral pulmonary arteries. There is mild interstitial thickening. Underlying emphysema is present. Ther e is no consolidation to suggest pneumonia. IMPRESSION: Cardiomegaly. Interstitial thickening favors mild pulmonary edema. ACT 112: Negative or not required by law. Electronically signed by: Minh Fajardo M.D. 06/21/2023 6:06 PM
[2023-06-21 18:08] LABS: Alanine Aminotransferase 106 U/L (7-52); Albumin Globulin Ratio 1.1 (0.9-2); Albumin Level 3.1 gm/dl (3.4-5.0); Alkaline Phosphatase 88 U/L (34-104); Anion Gap 12 (3-11); Aspartate Aminotransferase 142 U/L (13-39); Bilirubin,Total 4.7 mg/dl (0.2-1.0); Blood Urea Nitrogen 62 mg/dl (6-23); Calcium 9.7 mg/dl (8.6-10.3); Carbon Dioxide 15 mmol/L (21-32); Chloride 102 mmol/L (98-107); Est GFR (Non-African American) 28.4 ml/min; Globulin 2.7 gm/dl (2.5-4.0); Glucose 151 mg/dl (70-99(Fasting)); Magnesium 2.1 mg/dl (1.7-2.4); Potassium 4.5 mmol/L (3.5-5.1); Sodium 129 mmol/L (136-145); Total Protein 5.8 gm/dl (6.0-8.3)
[2023-06-21 18:13] LABS: Troponin I High Sensitivity 50.7 pg/ml (0-14)
[2023-06-21 18:17] LABS: INR 2.7 (0.9-1.1); Partial Thromboplastin Ratio 1.5; Partial Thromboplastin Time 41 Seconds (21-31); Prothrombin Time 27.4 Seconds (9.0-12.0)
[2023-06-21 18:21] LABS: Hematocrit (blood only) 43.2 % (37.0-47.0); Hemoglobin 13.4 g/dl (12.0-16.0); Mean Corpuscular Hemoglobin 25.6 pg (25.0-34.0); Mean Corpuscular Volume 82.4 fL (80.0-100.0); Nucleated RBC # (auto) 0.13 K/uL (0.00-0.12); Nucleated RBC % (auto) 1.7 %; Platelet Count 81 K/uL (130-400); RDW Coefficient of Variation 22.2 % (11.5-14.5); RDW Standard Deviation 62.4 fL (36.4-46.3); Red Blood Count 5.24 M/uL (4.20-5.40); White Blood Count 7.62 K/ul (4.8-10.8)
[2023-06-21 18:22] LABS: Anisocytosis Present; Basophils # (auto) 0.01 K/uL (0.00-0.20); Basophils % (auto) 0.1 %; Eosinophils # (auto) 0.03 K/uL (0.00-0.50); Eosinophils % (auto) 0.4 %; Immature Granulocytes # (auto) 0.04 K/uL (0.01-0.20); Immature Granulocytes % (auto) 0.5 %; Lymphocytes # (auto) 1.13 K/uL (1.20-3.40); Lymphocytes % (auto) 14.8 %; Macrocytosis Present; Monocytes # (auto) 0.51 K/uL (0.11-0.59); Monocytes % (auto) 6.7 %; Neutrophils % (auto) 77.5 %; Ovalocytes 1+; Polychromasia 1+; Tear Drop Cells 1+
[2023-06-21] MEDS: SODIUM CHLORIDE 0.9% 500 ML IV ONE (18:35)
[2023-06-21] MEDS: SODIUM CHLORIDE 0.9% 1,000 ML IV ONE (18:36)
[2023-06-21 19:39] LABS: Influenza A virus by PCR Negative (Neg); Influenza B virus by PCR Negative (Neg); RSV by PCR Negative (Neg); SARS CoV2 RNA(COVID-19) Ceph NEGATIVE (Negative)
[2023-06-21 20:01] LABS: Troponin I High Sensitivity 54.1 pg/ml (0-14)
[2023-06-21 20:06] LABS: Appearance Urine Clear (Clear); Bacteria Urine Automated None Seen (None Seen); Bilirubin Urine 1+ (Negative); Blood Urine Negative (Negative); Color Urine Dark Yellow; Glucose Urine UA Negative (Negative); Ketones Urine Negative (Negative); Leukocyte Esterase Urine Negative (Negative); Nitrite Urine Negative (Negative); Protein Urine 1+ (Negative); RBC Urine Automated 0-2 /hpf (0-2); Specific Gravity Urine 1.015 (1.000-1.030); Urobilinogen Urine Negative (Negative); WBC Urine Automated 0-5 /hpf (0-5)
--- NOTE | 2023-06-21 20:11 | CT Scan Report ---
Exam(s): CT ABDOMEN + PELVIS Without Contrast EXAM: CT Abdomen and Pelvis Without Intravenous Contrast CLINICAL HISTORY: Reason for exam: Elevated bilirubin, transaminitis, jaundice. TECHNIQUE: Axial computed tomography images of the abdomen and pelvis without intravenous contrast. CTDI is 12.02 mGy and DLP is 544.47 mGy-cm. Automated exposure control was utilized for the study. A dose lowering technique was utilized adhering to the principles of ALARA. COMPARISON: None FINDINGS: Lung bases: Emphysematous changes. No consolidation. Heart: Mitral annular calcifications. Cardiomegaly. ABDOMEN: Liver: Nonspecific periportal edema. Gallbladder and bile ducts: Unremarkable. No calcified stones. No ductal dilation. Pancreas: Unremarkable. No ductal dilation. Spleen: Unremarkable. No splenomegaly. Adrenals: Unremarkable. No mass. Kidneys and ureters: Unremarkable. No hydronephrosis or stone. Stomach and bowel: Evaluation of the stomach. Severe underdistention. Diverticulosis without evidence of diverticulitis. No small bowel obstruction. PELVIS: Appendix: No findings to suggest acute appendicitis. Bladder: Unremarkable. No stones. Reproductive: Unremarkable as visualized. ABDOMEN and PELVIS: Intraperitoneal space: Unremarkable. No free air. No significant fluid collection. Bones/joints: There are degenerative changes of the spine. No acute fracture. No dislocation. Soft tissues: Body wall edema. Vasculature: Phleboliths in pelvis. Atherosclerotic changes of the vasculature. No aortic aneurysm. Lymph nodes: Unremarkable. No enlarged lymph nodes. IMPRESSION: Nonspecific periportal edema. Electronically signed by: Marlee Bowman M.D. 06/21/23 20:11 PM
--- NOTE | 2023-06-21 20:20 | CT Scan Report ---
Exam(s): CT HEAD Without Contrast EXAM: CT Head Without Intravenous Contrast CLINICAL HISTORY: Reason for exam: AMS. TECHNIQUE: Axial computed tomography images of the head/brain without intravenous contrast. CTDI is 37.95 mGy and DLP is 546.36 mGy-cm. Automated exposure control was utilized for the study. A dose lowering technique was utilized adhering to the principles of ALARA. COMPARISON: CT head on 03/18/2023 FINDINGS: Brain: No acute infarct or hemorrhage identified. No extra-axial fluid collection. No mass effect or midline shift. Scattered areas of hypoattenuation in the supratentorial white matter likely represent chronic small vessel ischemic changes. Ventricles and sulci: Prominence of the ventricles and sulci is likely secondary to cerebral volume loss. Bones: Normal. No bony lesion or acute fracture. Subcutaneous tissues: Normal. Sinuses: Normal. No air-fluid levels or mucosal thickening. Mastoid air cells: Normal. Orbits: Grossly unremarkable. Other: Atherosclerotic calcifications in the intracranial vasculature. IMPRESSION: 1. No acute intracranial abnormality. 2. Chronic small vessel ischemic changes and cerebral volume loss. Electronically signed by: Marlee Bowman M.D. 06/21/23 20:19 PM
--- NOTE | 2023-06-21 20:32 | History & Physical Report ---
Date of Service June 21, 2023 Assessment & Plan (1) Acute liver failure: Plan: Worsening weakness and jaundice x 2 weeks Lactate elevated at 4.3-->4.9 after 1.5L fluids in the ED Elevated INR 2.7 Total bilirubin elevated at 4.7 Elevated transaminases with the exception of alk phos May indicate jaundiced due to acute heart failure rather than congestion from biliary obstruction No leukocytosis; afebrile; normotensive; PCT WNL; will defer abx at this time A/P CT revealed nonspecific periportal edema; no mention of masses to indicate malignancy ? Acute liver failure in the setting of CHF / congestive hepatopathy Lower suspicion for Budd-Chiari, or clotting in liver, as patient reports consistency with taking her Eliquis Tickborne panel ordered, pending Acute hepatitis panel ordered, pending Echocardiogram ordered, pending Ferritin ordered, pending In the setting of right-sided heart failure + severe mitral regurgitation + new onset a fib, consider possible cardiac event Continuous telemetry monitoring A.m. CBC, CMP, PT/INR, PTT, mag, troponin (2) Thrombocytopenia: Plan: Platelet count low at 81 on arrival In the setting of acute liver failure Vitamin K 5 mg p.o. x 1 (3) Acute on chronic diastolic CHF (congestive heart failure): Plan: BNP elevated at >4700 (most recently 3207 on 06/04/2023) Last echocardiogram on 02/23/2023 revealed LVEF at 50-55%; severe mitral regurgitation; RVSP elevated at 5060mmHg Strict I&O monitoring Daily weights AHA, low sodium diet (4) SHERI (acute kidney injury): Plan: BUN 62, creatinine 1.63 (baseline around 1.19), EGFR 28.4 Avoid nephrotoxic agents for possible IVF resuscitation in the ED Repeat a.m. labs (5) Elevated troponin: Plan: Elevated troponin 50.7-->54.1 on arrival Chronically elevated, but may be slightly higher in the setting of a fib or SHERI Trend q6h x 2 (6) Hyponatremia: Plan: Na 129 on arrival Given patient recently stopped taking her daily lasix; ? hypervolemic CHF Lasix 20 mg IV x 1, and will reassess (7) Altered mental status: Plan: Per family, some increased confusion over the past couple weeks Head CT revealed no acute intracranial abnormality Ammonia WNL May be secondary to azotemia (BUN elevated at 62) Oriented to name//location/year (not month) on arrival Continue to monitor for cognitive changes (8) Unspecified atrial fibrillation: Plan: New onset A-fib in April 2023; per CHF visit note, scheduled to see Dr. Hdz in June for formal eval Rate controlled Continue Eliquis (9) Venous ulcers of both lower extremities: Plan: Daily wound care (10) Severe mitral regurgitation: Plan: Noted; potential contributing factor Plan Disposition: Admit to PCU telemetry DNR/DNI AHA, low-sodium diet VTE PPx: On Eliquis History of Present Illness Chief Complaint: Skin problem Primary Care Provider: Caty Rabago MD Sandra is an 87yo female with PMH of severe mitral regurgitation, CHF, COPD, and emphysema. She presented at the behest of her family for increased fatigue and jaundice x 2 weeks. Patient's only complaint at time of admission is that she is "feeling lousy". She denies all other symptoms. She does not use supplemental oxygen at home. She reports she is able to breathe fine when she lies flat on her back. She takes her weight every morning and is normally around 95 to 96 pounds; per daughter she was around 98 to 100 pounds a couple weeks ago. Patient's daughter also reports she has been eating "like a bird" recently. Patient denies any recent change in diet. She has not been taking Tylenol for any aches or pains. She denies any rashes on her body or tick bites. No history of alcohol use. No recent falls. Patient does not use an ambulatory assist device such as a walker or cane at home. Patient is a former tobacco cigarette smoker, but quit in 2021. She reports that she only takes Eliquis and her inhaler daily. She followed with the heart failure clinic, but was recently taken off of Lasix due to her kidney levels. Patient's daughter reports that she has been trying to keep her legs wrapped to keep swelling down, but she regularly takes them off. ED Course: NSS 1500mL IV ROS: Patient endorses feeling fatigued / lousy, increased jaundice, and swelling in the lower extremities bilaterally. Patient denies fever, chills, night-sweats, dizziness, lightheadedness, BARGER, changes in vision, chest pain, chest palpitations, SOB, cough, abdominal pain, RUQ pain, N/B/D, changes in urinary or bowel habits, dark urine, blood in the urine or stool, or numbness/tingling/pain in the legs. Allergies Allergy/AdvReac Type Severity Reaction Status Date / Time No Known Allergies Allergy Verified 06/21/23 19:54 Home Medications Medication Instructions Recorded Confirmed Type umeclidinium 62.5 mcg-vilanterol 1 inh inhalation DAILY #60 ea 05/28/23 06/21/23 Rx 25 mcg/actuation powdr for inhalation (Anoro Ellipta) apixaban 2.5 mg tablet (Eliquis) 2.5 mg PO BID #180 tabs 06/04/23 06/21/23 Rx Past Med/Surg History Medical History (Updated 06/21/23 @ 22:10 by Hadley Rosales PA-C) Elevated troponin History of cigarette smoking COVID Emphysema lung Severe mitral regurgitation Surgical History No pertinent past surgical history Family History Denies family history of Ovarian cancer Prostate cancer Breast cancer Lung cancer Colorectal cancer Social History Smoking Status: Former smoker Tobacco Type: Cigarettes Age Started Using Tobacco: 17; Age Quit Using Tobacco: 85; packs per day: 1; Second Hand Exposure: No; Do You Dip or Chew Tobacco: No; Hx Alcohol Use: No Hx Substance Use: No Preferred Language: Khmer Communication Ability: Effective Visual Impairment: No Limitations Hearing Ability: Normal Roto Mixer Operator Required: No Beliefs That Will Affect Care: None marital status: Current Living Situation: Spouse and Family Current Living Situation Comment: Lives with Michel, daughter Charu, and grandson Eddi current occupational 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 How many Children do You have: 1 Feels Safe at Home: Yes Childhood Exposure to Second-Hand Smoke: Yes Diet: regular caffeine: Yes Dental Care, Regularly: No Physical Activity Frequency: Daily Physical Activity Frequency Comment: watched her great granddaughter daily, active >90 min daily Seatbelt Use: always Sunscreen Use: No Assistive Devices: None Review of Systems 2 Review of Systems: See HPI above Physical Exam 2 Physical Exam: General: no acute distress; cachectic; frail appearing; cooperative HEENT: normocephalic, atraumatic; scleral icterus; PERRLA; dry mucus membrane, and dark red bruising beneath the tongue bilaterally; vision and hearing intact Neck: supple; negative for JVP; no lymphadenopathy; trachea midline Skin: Jaundice; bruising along the arms; mottled, cold skin (cool to touch); dusky toes and fingernails CV: chest wall NTP; RRR; S1/S2 normal; no murmurs/rubs/gallops; pulses intact and symmetric at radial, DP, and PT Lungs: no acute respiratory distress; symmetrical chest wall expansion; clear breath sounds across all lung [place] w/o adventitious sounds; no wheezing ABD: Soft, NTP; BS present; no rebound/guarding; mild distention MSK: no tics or fasciculations; +1 pitting edema in the lower extremities bilaterally, with ulcers on both legs and purple purpura on the right medial ankle (see photos below) Neuro: Patient is alert and oriented to name//location/year, but not month; flat mood and affect; fluent speech; no focal deficits; sensation intact and symmetric in the LEs b/l Results & Data Results & Data Vital Signs (Past 12 Hours) Vital Signs Temp Pulse Resp BP Pulse Ox O2 Del Method 06/21/23 19:00 69 15 06/21/23 18:30 129/91 06/21/23 18:30 84 14 06/21/23 18:01 64 27 H 06/21/23 18:01 113/72 06/21/23 18:00 82 12 06/21/23 17:31 107/72 06/21/23 17:31 82 20 06/21/23 17:30 59 L 16 06/21/23 17:29 98/57 L 06/21/23 17:29 73 21 06/21/23 17:11 87 26 H 06/21/23 17:11 79 06/21/23 15:41 Room Air 06/21/23 15:35 35.6 C L 94 H 18 104/72 96 Room Air Laboratory Results Abnormal lab results 06/21/23 06/21/23 06/21/23 Range/Units 17:17 19:05 19:50 MCHC 31.0 L (32.0-36.0) g/dL RDW Std Deviation 62.4 H (36.4-46.3) fL RDW Coeff of Selena 22.2 H (11.5-14.5) % Plt Count 81 L (130-400) K/uL Lymph # (Auto) 1.13 L (1.20-3.40) K/uL Absolute Nucleated RBC 0.13 H (0.00-0.12) K/uL PT 27.4 H (9.0-12.0) Seconds INR 2.7 H (0.9-1.1) APTT 41 H (21-31) Seconds Sodium 129 L (136-145) mmol/L Carbon Dioxide 15 L (21-32) mmol/L Anion Gap 12 H (3-11) BUN 62 H (6-23) mg/dl Creatinine 1.63 H (0.6-1.2) mg/dl BUN/Creatinine Ratio 38.0 H (10-20) Glucose 151 H (70-99(Fasting)) mg/dl Lactate 4.3 H* 4.9 H* (0.4-2.0) mmol/L Total Bilirubin 4.7 H (0.2-1.0) mg/dl AST 142 H (13-39) U/L ALT 106 H (7-52) U/L Troponin I High Sens 50.7 H* 54.1 H* (0-14) pg/ml B-Natriuretic Peptide > 4700 H (0-100) pg/ml Total Protein 5.8 L (6.0-8.3) gm/dl Albumin 3.1 L (3.4-5.0) gm/dl Urine Protein 1+ H (Negative) Urine Bilirubin 1+ H (Negative) U Hyaline Cast (Auto) 6-10 H (0-2) /lpf U Epithel Cells (Auto) 3-5 H (0-2) /hpf Diagnostic Findings Chest X-Ray 06/21/23 15:41 XR chest 1V portable CLINICAL HISTORY: Sepsis. COMPARISON STUDY: Chest CT August 22, 2022. Chest radiograph March 18, 2023. FINDINGS: There is no pneumothorax or pleural effusion. Moderate cardiomegaly is unchanged. There is extensive mitral annular calcification. Prominence of the bilateral jalyn is likely due to dilated central pulmonary arteries. There is mild interstitial thickening. Underlying emphysema is present. There is no consolidation to suggest pneumonia. IMPRESSION: Cardiomegaly. Interstitial thickening favors mild pulmonary edema. ACT 112: Negative or not required by law. Electronically signed by: Minh Fajardo M.D. 06/21/2023 6:[address] 06/21/23 16:39 Exam(s): CT HEAD Without Contrast EXAM: CT Head Without Intravenous Contrast CLINICAL HISTORY: Reason for exam: AMS. TECHNIQUE: Axial computed tomography images of the head/brain without intravenous contrast. CTDI is 37.95 mGy and DLP is 546.36 mGy-cm. Automated exposure control was utilized for the study. A dose lowering technique was utilized adhering to the principles of ALARA. COMPARISON: CT head on 03/18/2023 FINDINGS: Brain: No acute infarct or hemorrhage identified. No extra-axial fluid collection. No mass effect or midline shift. Scattered areas of hypoattenuation in the supratentorial white matter likely represent chronic small vessel ischemic changes. Ventricles and sulci: Prominence of the ventricles and sulci is likely secondary to cerebral volume loss. Bones: Normal. No bony lesion or acute fracture. Subcutaneous tissues: Normal. Sinuses: Normal. No air-fluid levels or mucosal thickening. Mastoid air cells: Normal. Orbits: Grossly unremarkable. Other: Atherosclerotic calcifications in the intracranial vasculature. IMPRESSION: 1. No acute intracranial abnormality. 2. Chronic small vessel ischemic changes and cerebral volume loss. Electronically signed by: Marlee Bowman M.D. 06/21/23 20:19 PM Abdomen/Pelvis CT 06/21/23 19:05 Exam(s): CT ABDOMEN + PELVIS Without Contrast EXAM: CT Abdomen and Pelvis Without Intravenous Contrast CLINICAL HISTORY: Reason for exam: Elevated bilirubin, transaminitis, jaundice. TECHNIQUE: Axial computed tomography images of the abdomen and pelvis without intravenous contrast. CTDI is 12.02 mGy and DLP is 544.47 mGy-cm. Automated exposure control was utilized for the study. A dose lowering technique was utilized adhering to the principles of ALARA. COMPARISON: None FINDINGS: Lung bases: Emphysematous changes. No consolidation. Heart: Mitral annular calcifications. Cardiomegaly. ABDOMEN: Liver: Nonspecific periportal edema. Gallbladder and bile ducts: Unremarkable. No calcified stones. No ductal dilation. Pancreas: Unremarkable. No ductal dilation. Spleen: Unremarkable. No splenomegaly. Adrenals: Unremarkable. No mass. Kidneys and ureters: Unremarkable. No hydronephrosis or stone. Stomach and bowel: Evaluation of the stomach. Severe underdistention. Diverticulosis without evidence of diverticulitis. No small bowel obstruction. PELVIS: Appendix: No findings to suggest acute appendicitis. Bladder: Unremarkable. No stones. Reproductive: Unremarkable as visualized. ABDOMEN and PELVIS: Intraperitoneal space: Unremarkable. No free air. No significant fluid collection. Bones/joints: There are degenerative changes of the spine. No acute fracture. No dislocation. Soft tissues: Body wall edema. Vasculature: Phleboliths in pelvis. Atherosclerotic changes of the vasculature. No aortic aneurysm. Lymph nodes: Unremarkable. No enlarged lymph nodes. IMPRESSION: Nonspecific periportal edema. Electronically signed by: Marlee Bowman M.D. 06/21/23 20:11 PM ECG Additional Comments: ECG revealed normal sinus rhythm at 85 bpm; QTc 502 (caution use of QT prolonging agents) Code Status & VTE Plan Code Status DNR/DNI (discussed with patient as well as family at bedside; patient exhibits capacity at this time; she would not like an ICU level of care) VTE Prophylaxis Plan VTE Prophylaxis will be ordered: Yes Supervising Physician Co-Signing Physician Notes Patient seen and examined, chart reviewed, case discussed with LORI Rosales and I agree with the assessment and plan as above. In brief, patient is an 87yo female presenting with two weeks of progressive symptoms - weakness, fatigue, laundice and edema. Also with some worsening confusion On exam patient is ill in appearance, cachectic HEENT - MMM, no JVD, +icterus, Skin - +Jaundice, +bruising, +mottling on toes and knees, +purpuric lesions, eschars on ankles Heart - +S1/S2, regular with ectopy, 4/6 ANTOINE across precordium Lungs - +crackles in bilateral bases, no wheeze Abd - +BS, soft, NT/ND Ext - 2+ pitting edema LE bilaterally Labs and images reviewed Worsening liver parameters - thrombocytopenia, hyponatremia, elevated lactate on arrival which worsened with IVF Worsening renal function Assessment/Plan Worsening liver failure - etiology unclear. Possibly secondary to congestive hepatopathy. Patient with evidence of poor perfusion - cool extremities with mottling. Evidence of volume overload with edema, presumed hepatic congestion and possible pulmonary edema noted on CXR -Lasix 20mg IV x 2 doses given. Reassessment with repeat dosing in AM if needed -Monitor I/Os, weights -Zosyn 4.5gm IV x 1 dose given - patient hypothermic. Do not strongly suspect sepsis -Check 2D echo -Remainder as above PG Care Time/CCT Total # of Minutes Spent Total Time Spent with Patient: Total time spent is greater than 50% in coordination of care (as documented) at patient's floor/unit and/or counseling patient: Coding [place] [address] INT INP/OBS CARE 375MIN Patient Type Established Medical Decision Making High Complexity Diagnoses Acute liver failure K72.00 Thrombocytopenia D69.6 Acute on chronic diastolic CHF (congestive heart failure) I50.33 SHERI (acute kidney injury) N17.9 Elevated troponin R77.8 Hyponatremia E87.1 Altered mental status R41.82 Unspecified atrial fibrillation I48.91 Venous ulcers of both lower extremities I83.019; I83.029; L97.919; L97.929 Severe mitral regurgitation I34.0
[2023-06-21] MEDS: FUROSEMIDE INJ 20 MG/2 ML VIAL IV ONE (21:59)
[2023-06-21] MEDS: PHYTONADIONE 5 MG TAB PO STA (22:01)
[2023-06-21 22:33] LABS: C Reactive Protein 1.98 mg/dl (0-0.5); Ferritin 72.7 ng/ml (8-388)
[2023-06-21 23:37] LABS: HCO3 VBG 19 mmol/L; Oxygen Saturation VBG < 60.0 %; PCO2 VBG 56 mmHg (38-50); PO2 VBG < 20 mmHg; pH VBG 7.13 (7.36-7.41)
[2023-06-22] MEDS: FUROSEMIDE INJ 20 MG/2 ML VIAL IV ONE ×3 (00:52→16:29)
[2023-06-22 02:31] LABS: Basophils # (auto) 0.01 K/uL (0.00-0.20); Basophils % (auto) 0.1 %; Eosinophils # (auto) 0.01 K/uL (0.00-0.50); Eosinophils % (auto) 0.1 %; Hematocrit (blood only) 40.9 % (37.0-47.0); Hemoglobin 13.1 g/dl (12.0-16.0); Immature Granulocytes # (auto) 0.05 K/uL (0.01-0.20); Immature Granulocytes % (auto) 0.6 %; Lymphocytes # (auto) 1.16 K/uL (1.20-3.40); Lymphocytes % (auto) 13.1 %; Mean Corpuscular Hemoglobin 26.5 pg (25.0-34.0); Mean Corpuscular Volume 82.6 fL (80.0-100.0); Monocytes # (auto) 0.37 K/uL (0.11-0.59); Monocytes % (auto) 4.2 %; Neutrophils # (auto) 7.26 K/uL (1.40-6.50); Neutrophils % (auto) 81.9 %; Nucleated RBC # (auto) 0.11 K/uL (0.00-0.12); Nucleated RBC % (auto) 1.2 %; Platelet Count 74 K/uL (130-400); RDW Coefficient of Variation 22.1 % (11.5-14.5); RDW Standard Deviation 63.5 fL (36.4-46.3); Red Blood Count 4.95 M/uL (4.20-5.40); White Blood Count 8.86 K/ul (4.8-10.8)
[2023-06-22 02:51] LABS: Albumin Globulin Ratio 1.1 (0.9-2); Albumin Level 2.9 gm/dl (3.4-5.0); BUN Creatinine Ratio 37.1 (10-20); Bilirubin,Total 4.4 mg/dl (0.2-1.0); Calcium 8.9 mg/dl (8.6-10.3); Creatinine Clr Calc Pharmacy 16.8 ml/min; Est GFR (Non-African American) 27.6 ml/min; Globulin 2.6 gm/dl (2.5-4.0); Potassium 4.5 mmol/L (3.5-5.1); Total Protein 5.5 gm/dl (6.0-8.3)
[2023-06-22 02:53] LABS: Anisocytosis Present; Echinocytes 1+; Polychromasia 1+
[2023-06-22 02:57] LABS: Troponin I High Sensitivity 44.8 pg/ml (0-14)
[2023-06-22 03:03] LABS: Partial Thromboplastin Ratio 1.9; Partial Thromboplastin Time 54 Seconds (21-31); Prothrombin Time 30.3 Seconds (9.0-12.0)
[2023-06-22] MEDS: PIPERACILLIN/TAZOBACTAM 4.5 GM in DEXTROSE 5% MINI-B 100 ML IV ONE (04:38)
--- NOTE | 2023-06-22 07:56 | Hospitalist Progress Note ---
Date of Service June 22, 2023 Assessment & Plan (1) Acute liver failure: Plan: Worsening weakness and jaundice x 2 weeks Lactate elevated at 4.3-->4.9 after 1.5L fluids in the ED Elevated INR 2.7 Total bilirubin elevated at 4.7 Elevated transaminases with the exception of alk phos May indicate jaundiced due to acute heart failure rather than congestion from biliary obstruction No leukocytosis; afebrile; normotensive; PCT WNL; will defer abx at this time A/P CT revealed nonspecific periportal edema; no mention of masses to indicate malignancy ? Acute liver failure in the setting of CHF / congestive hepatopathy Lower suspicion for Budd-Chiari, or clotting in liver, as patient reports consistency with taking her Eliquis Tickborne panel ordered, pending Acute hepatitis panel ordered, pending Echocardiogram ordered, pending Ferritin ordered, pending In the setting of right-sided heart failure + severe mitral regurgitation + new onset a fib, consider possible cardiac event Continuous telemetry monitoring A.m. CBC, CMP, PT/INR, PTT, mag, troponin (2) Thrombocytopenia: Plan: Platelet count low at 81 on arrival In the setting of acute liver failure Vitamin K 5 mg p.o. x 1 (3) Acute on chronic diastolic CHF (congestive heart failure): Plan: BNP elevated at >4700 (most recently 3207 on 06/04/2023) Last echocardiogram on 02/23/2023 revealed LVEF at 50-55%; severe mitral regurgitation; RVSP elevated at 5060mmHg Strict I&O monitoring Daily weights AHA, low sodium diet (4) SHERI (acute kidney injury): Plan: BUN 62, creatinine 1.63 (baseline around 1.19), EGFR 28.4 Avoid nephrotoxic agents for possible IVF resuscitation in the ED Repeat a.m. labs (5) Elevated troponin: Plan: Elevated troponin 50.7-->54.1 on arrival Chronically elevated, but may be slightly higher in the setting of a fib or SHERI Trend q6h x 2 (6) Hyponatremia: Plan: Na 129 on arrival Given patient recently stopped taking her daily lasix; ? hypervolemic CHF Lasix 20 mg IV x 1, and will reassess (7) Altered mental status: Plan: Per family, some increased confusion over the past couple weeks Head CT revealed no acute intracranial abnormality Ammonia WNL May be secondary to azotemia (BUN elevated at 62) Oriented to name//location/year (not month) on arrival Continue to monitor for cognitive changes (8) Unspecified atrial fibrillation: Plan: New onset A-fib in April 2023; per CHF visit note, scheduled to see Dr. Hdz in June for formal eval Rate controlled Continue Eliquis (9) Venous ulcers of both lower extremities: Plan: Daily wound care (10) Severe mitral regurgitation: Plan: Noted; potential contributing factor Plan Disposition: Admit to PCU telemetry DNR/DNI AHA, low-sodium diet VTE PPx: On Eliquis Admission and Anticipated Discharge Date Admission Date: June 21, 2023 Subjective 06/21: Physical Exam 2 Physical Exam: General: no acute distress; cachectic; frail appearing; cooperative HEENT: normocephalic, atraumatic; scleral icterus; PERRLA; dry mucus membrane, and dark red bruising beneath the tongue bilaterally; vision and hearing intact Neck: supple; negative for JVP; no lymphadenopathy; trachea midline Skin: Jaundice; bruising along the arms; mottled, cold skin (cool to touch); dusky toes and fingernails CV: chest wall NTP; RRR; S1/S2 normal; no murmurs/rubs/gallops; pulses intact and symmetric at radial, DP, and PT Lungs: no acute respiratory distress; symmetrical chest wall expansion; clear breath sounds across all lung [place] w/o adventitious sounds; no wheezing ABD: Soft, NTP; BS present; no rebound/guarding; mild distention MSK: no tics or fasciculations; +1 pitting edema in the lower extremities bilaterally, with ulcers on both legs and purple purpura on the right medial ankle (see photos below) Neuro: Patient is alert and oriented to name//location/year, but not month; flat mood and affect; fluent speech; no focal deficits; sensation intact and symmetric in the LEs b/l Results & Data Results & Data Vital Signs (Past 12 Hours) Vital Signs Temp Pulse Pulse Resp BP BP Pulse Ox 06/22/23 07:01 67 06/22/23 06:00 36.4 C L 80 26 H 91/56 L 93 06/22/23 04:41 97 06/22/23 04:39 34.7 C L 67 19 99/65 L 06/22/23 02:57 34.3 C L 06/22/23 01:36 75 16 108/84 06/22/23 00:00 71 12 06/21/23 23:30 78 24 119/78 06/21/23 23:00 77 22 118/81 06/21/23 22:57 78 06/21/23 22:00 75 06/21/23 22:00 122/72 06/21/23 21:30 100/73 06/21/23 21:30 73 18 06/21/23 21:17 78 06/21/23 21:01 113/90 06/21/23 21:01 79 21 06/21/23 21:00 76 06/21/23 20:30 73 23 06/21/23 20:30 106/61 06/21/23 20:00 103/70 06/21/23 20:00 78 24 O2 Del Method O2 Flow Rate 06/22/23 07:01 06/22/23 06:00 Nasal Cannula 2 06/22/23 04:41 Nasal Cannula 2 06/22/23 04:39 Nasal Cannula 2 06/22/23 02:57 06/22/23 01:36 Nasal Cannula 2 06/22/23 00:00 06/21/23 23:30 Nasal Cannula 2 06/21/23 23:00 Nasal Cannula 2 06/21/23 22:57 06/21/23 22:00 06/21/23 22:00 06/21/23 21:30 06/21/23 21:30 06/21/23 21:17 06/21/23 21:01 06/21/23 21:01 06/21/23 21:00 06/21/23 20:30 06/21/23 20:30 06/21/23 20:00 06/21/23 20:00
[2023-06-22] MEDS: UMECLIDINIUM/VILANTEROL 62.5/25MCG 7 PUFFS/INHALER INH SCH (08:32)
[2023-06-22 08:38] LABS: HCO3 ABG 18 mmol/L (19-24); Oxygen Saturation ABG 96.1 % (90-95); PCO2 ABG 29 mmHg (35-46); PO2 ABG 76 mmHg (80-95); pH ABG 7.41 (7.35-7.45)
--- NOTE | 2023-06-22 08:53 | Hospitalist Progress Note ---
Date of Service June 22, 2023 Assessment & Plan (1) Acute liver failure: Plan: -Worsening weakness/jaundice x2 weeks, with abnormal LFTs- TB 4.7, INR 2.7, AST 149, ALT 109 on admission -Elevated lactate on admission resolved with fluid repletion -No leukocytosis, afebrile, normotensive/borderline hypotension -CTAP - periportal edema noted -History suggests congestive hepatopathy as leading differential, lower suspicion for primary hepatobiliary process -MELD-Na 32, associated 90-day mortality of 60+% -S/p Lasix 20 mg IV x2 in ER -Pending studies -Tickborne panel- negative -Acute hepatitis panel -TTE- EF 55-60%, less mitral regurgitation compared to 01/2023 study -Ferritin- wnl -Liver US ordered today -Continue Lasix 20 mg IV spot dosing per clinical assessment with careful BP monitoring -Trend CBC, CMP, PT/INR, PTT (2) Thrombocytopenia: Plan: Platelet count low at 81 on arrival In the setting of acute liver failure Vitamin K 5 mg p.o. x 1 given on admission Monitor CBC (3) Acute on chronic diastolic CHF (congestive heart failure): Plan: BNP elevated at >4700 (most recently 3207 on 06/04/2023) Last echocardiogram on 02/23/2023 revealed LVEF at 50-55%; severe mitral regurgitation; RVSP elevated at 5060mmHg Pt appears largely euvolemic on exam Diuresis as above (4) SHERI (acute kidney injury): Plan: BUN 62, creatinine 1.63 (baseline around 1.19), EGFR 28.4 Avoid nephrotoxic agents IVF resuscitation 1.5L NSS given in ED Lasix 20 mg IV x2 given after fluid repletion due to concern for CHF Unclear if SHERI is from dehydration vs poor forward flow from potential CHF, more likely latter Monitor BMP (5) Elevated troponin: Plan: Elevated troponin 50.7-->54.1 (peaked) on arrival Chronically elevated, but may be slightly higher in the setting of CHF/SHERI No longer trending (6) Hyponatremia: Plan: Na 129 on arrival Known self-discontinuation of pt's home Lasix few days prior to admission Lasix 20 mg IV x 2 given on admission Improved to 130 today Monitor BMP (7) Altered mental status: Plan: Per family, some increased confusion over the past couple weeks Head CT revealed no acute intracranial abnormality Ammonia wnl Unclear etiology- likely multifactorial from liver failure + SHERI (8) Unspecified atrial fibrillation: Plan: New onset AF in April 2023; per CHF visit note, scheduled to see Dr. Hdz in June for formal evaluation Currently sinus rhythm, rate controlled Continue Eliquis (9) Venous ulcers of both lower extremities: Plan: Daily wound care (10) Severe mitral regurgitation: Plan: Noted; potential contributing factor Plan Disposition: PCU DNR/DNI AHA, low-sodium diet VTE PPx: Eliquis Admission and Anticipated Discharge Date Admission Date: June 21, 2023 Supervising Physician Co-Signing Physician Notes I personally examined the patient and verified all cartwright points of history and exam, discussed case, and agree with decision making with Dr Tavera Seen multiple times today. First time laying on her side no meaningful HPI review of systems obtainable. Second time actually appearing fairly bright alert and talking with family some. Vitals noted, in general she was very ashen and jaundiced appearing on initial exam, later more bright and alert still jaundiced but no distress. Lungs diminished bibasilar no rales rhonchi or wheezes no accessory muscle use. Abdomen soft nondistended nontender. Extremities with venous stasis changes and ulcers. Liver failure/renal failureunifying explanation would be due to decompensated acute on chronic diastolic CHF mediated by mitral regurgitationwith poor forward flow leading to the renal failure and congestive hepatopathy leading to the liver failure. Thus far this is the most plausible working diagnosiscautious diuresis and follow closely. Liver ultrasound, await serologies, entertain other differentials. Reassuring that she looks better on my late afternoon/early evening visit. Obviously holding Eliquis given liver failure mediated coagulopathy. Multiple family members at bedside during different evaluations today. Updated to the best my ability and to their satisfaction. Subjective Acute events overnight- none. Pt examined at bedside. Confused and unsure why she is in hospital or what she is suffering from. Denies any acute complaints. Review of Systems Review of Systems: Per HPI/Subjective Physical Exam Physical Exam: General: tired-appearing, frail, malnourished HEENT: scleral icterus, dry mucous membranes Neck: no JVD CV: RRR, normal S1 and S2, no murmurs noted Resp: CTAB, no increased work of breathing, no crackles or wheezes Abd: Soft, nontender, nondistended, no guarding or rebound, +hepatomegaly MSK: Poor muscle bulk of all extremities Neuro: AOx3, no asterixis Skin: jaundiced, scattered ecchymoses, petechiae and mottling Ext: + b/l LE peripheral edema, ulcerated skin lesions b/l with erythema but no warmth or tenderness Results & Data Results & Data Vital Signs (Past 12 Hours) Vital Signs Temp Pulse Pulse Resp BP BP Pulse Ox 06/22/23 07:56 71 24 97/48 L 91 06/22/23 07:01 67 06/22/23 07:00 81 20 89/56 L 92 06/22/23 06:00 82 19 91/56 L 97 06/22/23 06:00 36.4 C L 80 26 H 91/56 L 93 06/22/23 04:41 97 06/22/23 04:39 34.7 C L 67 19 99/65 L 06/22/23 04:00 74 17 99/65 L 90 06/22/23 03:01 75 21 108/69 90 06/22/23 02:57 34.3 C L 06/22/23 01:36 75 16 108/84 06/22/23 00:30 71 18 107/72 90 06/22/23 00:00 71 12 06/21/23 23:30 78 24 119/78 06/21/23 23:00 77 22 118/81 06/21/23 22:57 78 06/21/23 22:00 75 06/21/23 22:00 122/72 06/21/23 21:30 100/73 06/21/23 21:30 73 18 06/21/23 21:17 78 06/21/23 21:01 113/90 06/21/23 21:01 79 21 06/21/23 21:00 76 O2 Del Method O2 Flow Rate 06/22/23 07:56 06/22/23 07:01 06/22/23 07:00 06/22/23 06:00 06/22/23 06:00 Nasal Cannula 2 06/22/23 04:41 Nasal Cannula 2 06/22/23 04:39 Nasal Cannula 2 06/22/23 04:00 06/22/23 03:01 06/22/23 02:57 06/22/23 01:36 Nasal Cannula 2 06/22/23 00:30 06/22/23 00:00 06/21/23 23:30 Nasal Cannula 2 06/21/23 23:00 Nasal Cannula 2 06/21/23 22:57 06/21/23 22:00 06/21/23 22:00 06/21/23 21:30 06/21/23 21:30 06/21/23 21:17 06/21/23 21:01 06/21/23 21:01 06/21/23 21:00 Resident Activity Tracking Resident Involvement: Resident Care Provided Care Provided: Adult Hospital Medicine
[2023-06-22 08:56] LABS: Allen Test Pos (Pos)
[2023-06-22] MEDS ORDERED: APIXABAN 2.5 MG TAB PO SCH (09:00)
[2023-06-22] MEDS ORDERED: FUROSEMIDE INJ 20 MG/2 ML VIAL IV ONE ×2 (11:42)
--- NOTE | 2023-06-22 12:41 | Electrocardiogram Report ---
Test Reason : Blood Pressure : / mmHG Vent. Rate : 085 BPM Atrial Rate : 085 BPM P-R Int : 150 ms QRS Dur : 130 ms QT Int : 422 ms P-R-T Axes : 088 176 024 degrees QTc Int : 502 ms Suspect arm lead reversal, interpretation assumes no reversal Normal sinus rhythm Right bundle branch block Left posterior fascicular block Bifascicular block Abnormal ECG When compared with ECG of 18-MAR-2023 08:35, Premature ventricular complexes are no longer Present Left posterior fascicular block is now Present ST elevation now present in Lateral leads Confirmed by Yuri Desai ([id number]) on 06/22/2023 12:41:49 PM Referred By: Confirmed By:Yuri Desai
--- NOTE | 2023-06-22 13:32 | XCELERA ---
[id number]
--- NOTE | 2023-06-22 14:50 | Ultrasound Report ---
ABDOMINAL ULTRASOUND, RIGHT UPPER QUADRANT HISTORY: Acutely elevated LFTs transaminitis, jaundice, liver failure. COMPARISON: CT abdomen and pelvis 06/21/2023, ultrasound 08/22/2022 FINDINGS: Limited exam secondary to patient's lack of cooperation and positioning. Pancreas: The pancreas is mostly obscured by bowel gas. Liver: 14.7 cm in length. Trace perihepatic ascites. Patent portal vein. No hepatic mass identified. Gallbladder: No gallbladder wall thickening. Small focus of fundal adenomyomatosis. No gallstones. CBD: 4 mm. Right kidney: No hydronephrosis. IMPRESSION: 1. Limited exam as above. 2. Mild adenomyomatosis of the gallbladder. No cholelithiasis or sonographic evidence of acute cholec ystitis. 3. No biliary ductal dilation. 4. Trace upper abdominal ascites redemonstrated. ACT 112: Negative or not required by law. Electronically signed by: Victoriano Black M.D. 06/22/2023 2:49 PM
[2023-06-22 16:08] LABS: Albumin Globulin Ratio 1.2 (0.9-2); Albumin Level 2.8 gm/dl (3.4-5.0); BUN Creatinine Ratio 36.1 (10-20); Bilirubin,Total 4.5 mg/dl (0.2-1.0); Calcium 8.8 mg/dl (8.6-10.3); Creatinine Clr Calc Pharmacy 15.3 ml/min; Est GFR (African American) 28.7 ml/min; Est GFR (Non-African American) 24.7 ml/min; Globulin 2.4 gm/dl (2.5-4.0); Potassium 4.9 mmol/L (3.5-5.1); Total Protein 5.2 gm/dl (6.0-8.3)
--- NOTE | 2023-06-22 18:06 | Billing Data ---
Date of Service June 22, 2023 Coding Level of Care Code 51689 SUB INP/OBS CARE
[2023-06-23] MEDS ORDERED: DEXTROSE 50% 50 ML SYRINGE IV PRN (00:41)
[2023-06-23] MEDS ORDERED: GLUCOSE 40% GEL 15 GM TUBE PO PRN (00:41)
[2023-06-23] MEDS ORDERED: GLUCAGON FOR INJ 1 MG VIAL SQ PRN (00:41)
[2023-06-23] MEDS ORDERED: CARBOHYDRATES FOR HYPOGLYCEMIA PO PRN (00:41)
[2023-06-23] MEDS ORDERED: GLUCOSE 10 TAB/TUBE PO PRN (00:41)
[2023-06-23] MEDS: DEXTROSE 50% 50 ML SYRINGE IV ONE (00:47)
[2023-06-23 06:21] LABS: Albumin Globulin Ratio 1.2 (0.9-2); BUN Creatinine Ratio 28.2 (10-20); Bilirubin,Total 7.1 mg/dl (0.2-1.0); Calcium 9.3 mg/dl (8.6-10.3); Creatinine Clr Calc Pharmacy 10.8 ml/min; Est GFR (African American) 18.8 ml/min; Est GFR (Non-African American) 16.2 ml/min; Globulin 2.6 gm/dl (2.5-4.0); Magnesium 2.3 mg/dl (1.7-2.4); Potassium 5.6 mmol/L (3.5-5.1); Total Protein 5.6 gm/dl (6.0-8.3)
[2023-06-23 06:31] LABS: INR 3.9 (0.9-1.1); Prothrombin Time 38.9 Seconds (9.0-12.0)
[2023-06-23 06:37] LABS: Anisocytosis Present; Basophils # (auto) 0.02 K/uL (0.00-0.20); Basophils % (auto) 0.2 %; Echinocytes 1+; Hematocrit (blood only) 43.5 % (37.0-47.0); Hemoglobin 13.6 g/dl (12.0-16.0); Immature Granulocytes % (auto) 0.8 %; Lymphocytes # (auto) 0.38 K/uL (1.20-3.40); Lymphocytes % (auto) 3.1 %; Mean Corpuscular Hemoglobin 26.5 pg (25.0-34.0); Mean Corpuscular Hgb Conc 31.3 g/dL (32.0-36.0); Mean Corpuscular Volume 84.6 fL (80.0-100.0); Monocytes # (auto) 0.54 K/uL (0.11-0.59); Monocytes % (auto) 4.4 %; Neutrophils # (auto) 11.35 K/uL (1.40-6.50); Neutrophils % (auto) 91.5 %; Nucleated RBC # (auto) 0.34 K/uL (0.00-0.12); Nucleated RBC % (auto) 2.7 %; Platelet Count 73 K/uL (130-400); Platelet Estimate Decreased (Normal); Polychromasia 1+; RDW Coefficient of Variation 22.9 % (11.5-14.5); RDW Standard Deviation 66.1 fL (36.4-46.3); Red Blood Count 5.14 M/uL (4.20-5.40); Tear Drop Cells 1+; White Blood Count 12.39 K/ul (4.8-10.8)
--- NOTE | 2023-06-23 06:59 | Hospitalist Progress Note ---
"Date of Service June 23, 2023 Assessment & Plan (1) Acute liver failure: Plan: Sandra is an 87F with CKD, CHF, CAD, COPD, lung nodules, chorea, cerebrovascular disease, severe MR, and prior smoking who presented for worsening weakness and jaundice and was admitted for acute liver failure. Acute Liver Failure | Elevated Bilirubin | Transaminitis | Thrombocytopenia - Presented with 2 weeks of worsening fatigue and jaundice in the setting of 3 years of progressively feeling more unwell - Abnormal LFTs on presentation, but now significantly worsened following diuresis (Lasic 20 mg IV x 3 06/21) T Bili now 8.1, AST 1200, ALT 446 Thrombocytopenia ongoing despite Vitamin K likely 2/2 liver failure - Lactate elevated on admission, continues to rise, patient dry on exam and likely intravascularly depleted w/ third spaced edema - Patient remains borderline hypotensive - Studies: Tickborne panel - negative Hepatitis panel - negative Ferritin - normal CTAP - nonspecific periportal edema Liver US - trace perihepatic ascites, no hepatic masses, fundal gallbladder adenomyomatosis, no biliary ductal dilation - While history suggestive of congestive hepatopathy, Echocardiogram not fully supportive of this differential Potential poor forward flow from MVP TTE- EF 55-60%, less mitral regurgitation compared to 01/2023 study Consulted Cardiology: Appreciate Recommendations - MELD Na 39, mortality risk > 65%, prognosis likely poor - Consulted GI: Appreciate Recommendations SIRS + w/ Unknown Source - Leukocytosis > 12, Temp < 36, and tachycardia - STAT blood cultures, lactate ordered Lactate up to 11.1 (potentially secondary to intravascular depletion) - Started Daptomycin and Cefepime (avoiding Nephrotoxic agents) - Hold additional Lasix CHF | Elevated BNP | Elevated Troponin | A Fib - BNP elevated to 4700 on admission, from 3207 on 06/04/23 - Troponin elevated on arrival, peaked at 54, chronically elevated - Echocardiogram w/o significant change - A Fib: currently in NSR, Eliquis held - Patient appearing euvolemic to dry on exam with significant third spacing - No benefit with trial of diuresis - Cardiology consulted as above: Appreciate recommendations SHERI - SHERI noted on presentation, Cr continues to rise - Continue avoidance of Nephrotoxic agents, including Lasix - 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 - Consulted Nephrology: Appreciate recommendations Hyponatremia - Na 129 on arrival, potential component of acute liver failure vs intravascular depletion - Discontinued home Lasix days prior to admission - S/p inpatient diuresis, Na has risen, but likely d/t hemoconcentration - Continue to monitor Confusion - Noted by family to have acutely worsened over last 2 weeks - CT w/o acute findings - Ammonia level normal - Likely multifactorial given acute liver failure, SHERI, and hyponatremia LE Ulcerations - Continue daily wound care (2) Thrombocytopenia: (3) Acute on chronic diastolic CHF (congestive heart failure): (4) SHERI (acute kidney injury): (5) Elevated troponin: (6) Hyponatremia: (7) Altered mental status: (8) Unspecified atrial fibrillation: (9) Venous ulcers of both lower extremities: (10) Severe mitral regurgitation: Plan Disposition: PCU DNR/DNI AHA, low-sodium diet VTE PPx: Artie held Admission and Anticipated Discharge Date Admission Date: June 21, 2023 Supervising Physician Co-Signing Physician Notes I personally examined the patient and verified all cartwright points of history and exam, discussed case, and agree with decision making with Dr Valadez Seen multiple times today. Not much of any meaningful HPI review of systems obtainablealthough she denies shortness of breath or pain. Nursing notes that she has been alert and able to take p.o. No family at the bedside the times that I see her, but resident physician was able to update family extensively.. Vitals noted, in general she was jaundiced and fatigued appearing but no acute distress. Lungs diminished bibasilar no rales rhonchi or wheezes no accessory muscle use. Extremities with venous stasis changes and ulcers. Liver failure/renal failure/metabolic encephalopathy/mild demand ischemia - unfortunately worsening dramatically. Offloading fluid was nominally successful at best, and her situation continues to worsen. I strongly suspect that she is going into a terminal multiorgan failuregiven that I do not know her situation well and suspect her prognosis is terminal, I did ask multiple specialties that interface with her organ system failure for their opinionsand unfortunately all are in agreement that her prognosis is quite poor. Resident physician had extensive updates with the family today who are aware of our unfortunate conclusions, and are considering options accordingly. Continue aggressive medical care for now. Subjective 06/23/23: Patient resting comfortably upon arrival to room. Was arousable to voice, conversive for a few moments, but fell back asleep. She noted that she is tired of feeling unwell, and has felt poorly for 3+ years. She states that the last 2 weeks have been significantly worse than prior. She denies any pain or discomfort and is unable to determine what feels off. She does note a lack of appetite, that has been chronic. When discussing patient's goals, she noted that she wants to figure out what is making her feel so sick. No additional HPI able to be obtained as patient abruptly fell asleep. Physical Exam Physical Exam: Gen: NAD, weak, chronically ill appearing HEENT: Supple, no LAD, no thyromegaly, no JVD, dry mucous membranes Resp:Mildly labored, diminished but no wheezing/rhonchi/rales, CTAB CV:tachycardic, regular rhythm, normal S1/S2, no M/R/G Abd: Soft, moderately-distended, no TTP, normoactive bowels, no masses Extr: 2+ dp bilaterally, 2+ pitting edema bilaterally Skin: Jaundiced, pale skin; purple/black discoloration of fingers and toes w/ likely ischemic ulcerations on legs. Results & Data Results & Data Vital Signs (Past 12 Hours) Vital Signs Temp Pulse Pulse Resp BP O2 Del Method O2 Del Method 06/23/23 02:52 35.7 C L 91 H 20 100/67 06/23/23 01:00 Room Air 06/23/23 00:00 93 H 06/22/23 22:48 36.6 C 93 H 18 100/70 06/22/23 20:33 36.8 C 94 H 16 114/77 06/22/23 20:00 Room Air Resident Activity Tracking Resident Involvement: Resident Care Provided Care Provided: Adult Hospital Medicine"
[2023-06-23] MEDS ORDERED: CEFEPIME 2,000 MG in SYRINGE 0 ML IV SCH (07:15)
[2023-06-23] MEDS: CEFEPIME 1,000 MG in SYRINGE 0 ML IV SCH (08:27)
[2023-06-23 09:13] LABS: Hematocrit (blood only) 45.4 % (37.0-47.0); Hemoglobin 14.1 g/dl (12.0-16.0); Mean Corpuscular Hemoglobin 26.4 pg (25.0-34.0); Mean Corpuscular Hgb Conc 31.1 g/dL (32.0-36.0); Nucleated RBC # (auto) 0.38 K/uL (0.00-0.12); Nucleated RBC % (auto) 2.9 %; Platelet Count 59 K/uL (130-400); RDW Coefficient of Variation 23.4 % (11.5-14.5); RDW Standard Deviation 67.6 fL (36.4-46.3); Red Blood Count 5.34 M/uL (4.20-5.40); White Blood Count 13.27 K/ul (4.8-10.8)
[2023-06-23] MEDS: PHYTONADIONE 5 MG TAB PO STA (09:13)
[2023-06-23] MEDS: DAPTOmycin 275 MG in SYRINGE 0 ML IV SCH (09:13)
[2023-06-23 09:37] LABS: Anisocytosis Present; Basophils # (auto) 0.02 K/uL (0.00-0.20); Basophils % (auto) 0.2 %; Immature Granulocytes # (auto) 0.12 K/uL (0.01-0.20); Immature Granulocytes % (auto) 0.9 %; Lymphocytes # (auto) 0.55 K/uL (1.20-3.40); Lymphocytes % (auto) 4.1 %; Monocytes # (auto) 0.43 K/uL (0.11-0.59); Monocytes % (auto) 3.2 %; Neutrophils # (auto) 12.15 K/uL (1.40-6.50); Neutrophils % (auto) 91.6 %; Polychromasia 2+
--- NOTE | 2023-06-23 10:06 | Nephrology Progress Note ---
Date of Service June 23, 2023 Assessment & Plan Admission and Anticipated Discharge Date Admission Date: June 21, 2023 Results & Data Vital Signs (Past 12 Hours) Vital Signs Temp Pulse Pulse Resp BP O2 Del Method 06/23/23 07:11 35.7 C L 88 16 112/73 06/23/23 02:52 35.7 C L 91 H 20 100/67 06/23/23 01:00 Room Air 06/23/23 00:00 93 H 06/22/23 22:48 36.6 C 93 H 18 100/70 Laboratory Results Laboratory Results WBC 13.27 K/ul (4.8-10.8) H 06/23/23 08:07 RBC 5.34 M/uL (4.20-5.40) 06/23/23 08:07 Hgb 14.1 g/dl (12.0-16.0) 06/23/23 08:07 Hct 45.4 % (37.0-47.0) 06/23/23 08:07 MCV 85.0 fL (80.0-100.0) 06/23/23 08:07 MCH 26.4 pg (25.0-34.0) 06/23/23 08:07 MCHC 31.1 g/dL (32.0-36.0) L 06/23/23 08:07 RDW Std Deviation 67.6 fL (36.4-46.3) H 06/23/23 08:07 RDW Coeff of Selena 23.4 % (11.5-14.5) H 06/23/23 08:07 Plt Count 59 K/uL (130-400) L 06/23/23 08:07 Immature Gran % (Auto) 0.9 % 06/23/23 08:07 Neut % (Auto) 91.6 % 06/23/23 08:07 Lymph % (Auto) 4.1 % 06/23/23 08:07 Hartley % (Auto) 3.2 % 06/23/23 08:07 Eos % (Auto) 0.0 % 06/23/23 08:07 Baso % (Auto) 0.2 % 06/23/23 08:07 Neut # (Auto) 12.15 K/uL (1.40-6.50) H 06/23/23 08:07 Lymph # (Auto) 0.55 K/uL (1.20-3.40) L 06/23/23 08:07 [place]ley # (Auto) 0.43 K/uL (0.11-0.59) 06/23/23 08:07 Eos # (Auto) 0.00 K/uL (0.00-0.50) 06/23/23 08:07 Baso # (Auto) 0.02 K/uL (0.00-0.20) 06/23/23 08:07 Immature Gran # (Auto) 0.12 K/uL (0.01-0.20) 06/23/23 08:07 Absolute Nucleated RBC 0.38 K/uL (0.00-0.12) H 06/23/23 08:07 Nucleated RBC % (auto) 2.9 % 06/23/23 08:07 Platelet Estimate Decreased (Normal) L 06/23/23 05:26 Polychromasia 2+ 06/23/23 08:07 Anisocytosis Present 06/23/23 08:07 Macrocytosis Present 06/21/23 17:17 Tear Drop Cells 1+ 06/23/23 05:26 Ovalocytes 1+ 06/21/23 17:17 Echinocytes 1+ 06/23/23 05:26 PT 38.9 Seconds (9.0-12.0) H 06/23/23 05:26 INR 3.9 (0.9-1.1) H 06/23/23 05:26 APTT 54 Seconds (21-31) H 06/22/23 02:20 PTT Ratio 1.9 06/22/23 02:20 ABG pH 7.41 (7.35-7.45) 06/22/23 08:31 ABG pCO2 29 mmHg (35-46) L 06/22/23 08:31 ABG pO2 76 mmHg (80-95) L 06/22/23 08:31 ABG HCO3 18 mmol/L (19-24) L 06/22/23 08:31 ABG O2 Saturation 96.1 % (90-95) H 06/22/23 08:31 ABG Base Excess -5.0 mEq/L (-9-1.8) 06/22/23 08:31 Bobby Test Pos (Pos) 06/22/23 08:31 VBG pH 7.13 (7.36-7.41) L 06/21/23 23:15 VBG pCO2 56 mmHg (38-50) H 06/21/23 23:15 VBG pO2 < 20 mmHg 06/21/23 23:15 VBG HCO3 19 mmol/L 06/21/23 23:15 VBG O2 Saturation < 60.0 % 06/21/23 23:15 VBG Base Excess -11.0 mEq/L 06/21/23 23:15 Oxygen Given ROOM AIR 06/22/23 08:31 Sodium Cancelled 06/23/23 08:07 Potassium Cancelled 06/23/23 08:07 Chloride Cancelled 06/23/23 08:07 Carbon Dioxide Cancelled 06/23/23 08:07 Anion Gap Cancelled 06/23/23 08:07 BUN Cancelled 06/23/23 08:07 Creatinine Cancelled 06/23/23 08:07 Est Cr Clr Drug Dosing Cancelled 06/23/23 08:07 Est GFR ( Amer) Cancelled 06/23/23 08:07 Est GFR (Non-Af Amer) Cancelled 06/23/23 08:07 BUN/Creatinine Ratio Cancelled 06/23/23 08:07 Glucose Cancelled 06/23/23 08:07 POC Glucose 77 mg/dl (70-99) 06/23/23 06:09 Lactate 11.1 mmol/L (0.4-2.0) H* 06/23/23 08:07 Calcium Cancelled 06/23/23 08:07 Magnesium 2.3 mg/dl (1.7-2.4) 06/23/23 05:26 Ferritin 72.7 ng/ml (8-388) 06/21/23 19:05 Total Bilirubin Cancelled 06/23/23 08:07 AST Cancelled 06/23/23 08:07 ALT Cancelled 06/23/23 08:07 Alkaline Phosphatase Cancelled 06/23/23 08:07 Ammonia 37.0 umol/L (18-72) 06/21/23 17:17 Troponin I High Sens 44.8 pg/ml (0-14) H 06/22/23 02:20 C-Reactive Protein Cancelled 06/23/23 08:07 B-Natriuretic Peptide > 4700 pg/ml (0-100) H 06/21/23 17:17 Total Protein Cancelled 06/23/23 08:07 Albumin Cancelled 06/23/23 08:07 Globulin Cancelled 06/23/23 08:07 Albumin/Globulin Ratio Cancelled 06/23/23 08:07 Procalcitonin 1.74 ng/ml (0-0.5) H 06/23/23 08:07 Urine Color Dark Yellow 06/21/23 19:50 Urine Appearance Clear (Clear) 06/21/23 19:50 Urine pH 5.0 (4.5-7.5) 06/21/23 19:50 Ur Specific [place] 1.015 (1.000-1.030) 06/21/23 19:50 Urine Protein 1+ (Negative) H 06/21/23 19:50 Urine Glucose (UA) Negative (Negative) 06/21/23 19:50 Urine Ketones Negative (Negative) 06/21/23 19:50 Urine Blood Negative (Negative) 06/21/23 19:50 Urine Nitrite Negative (Negative) 06/21/23 19:50 Urine Bilirubin 1+ (Negative) H 06/21/23 19:50 Urine Urobilinogen Negative (Negative) 06/21/23 19:50 Ur Leukocyte Esterase Negative (Negative) 06/21/23 19:50 Urine WBC (Auto) 0-5 /hpf (0-5) 06/21/23 19:50 Urine RBC (Auto) 0-2 /hpf (0-2) 06/21/23 19:50 U Hyaline Cast (Auto) 6-10 /lpf (0-2) H 06/21/23 19:50 U Epithel Cells (Auto) 3-5 /hpf (0-2) H 06/21/23 19:50 Urine Bacteria (Auto) None Seen (None Seen) 06/21/23 19:50 Acetaminophen < 3 ug/ml (10-30) L 06/22/23 02:20 Anaplasma Smear See Comment 06/21/23 17:17 Babesia Smear See Comment 06/21/23 17:17 Lyme Disease Screen Negative (Negative) 06/21/23 17:17 SARS-CoV-2 (PCR) NEGATIVE (Negative) 06/21/23 Unknown Hepatitis A IgM Ab Cancelled 06/21/23 23:15 Hep Bs Antigen Cancelled 06/21/23 23:15 Hep Bs Ag Confirmation Cancelled 06/21/23 23:15 Hep B Core IgM Ab Cancelled 06/21/23 23:15 Hepatitis C Ab (EIA) Cancelled 06/21/23 23:15 Influenza Type A (PCR) Negative (Neg) 06/21/23 Unknown Influenza Type B (PCR) Negative (Neg) 06/21/23 Unknown RSV (RT-PCR) Negative (Neg) 06/21/23 Unknown Impressions Chest X-Ray 06/21/23 15:41 XR chest 1V portable CLINICAL HISTORY: Sepsis. COMPARISON STUDY: Chest CT August 22, 2022. Chest radiograph March 18, 2023. FINDINGS: There is no pneumothorax or pleural effusion. Moderate cardiomegaly is unchanged. There is extensive mitral annular calcification. Prominence of the bilateral jalyn is likely due to dilated central pulmonary arteries. There is mild interstitial thickening. Underlying emphysema is present. There is no consolidation to suggest pneumonia. IMPRESSION: Cardiomegaly. Interstitial thickening favors mild pulmonary edema. ACT 112: Negative or not required by law. Electronically signed by: Minh Fajardo M.D. 06/21/2023 6:[address] 06/21/23 16:39 Exam(s): CT HEAD Without Contrast EXAM: CT Head Without Intravenous Contrast CLINICAL HISTORY: Reason for exam: AMS. TECHNIQUE: Axial computed tomography images of the head/brain without intravenous contrast. CTDI is 37.95 mGy and DLP is 546.36 mGy-cm. Automated exposure control was utilized for the study. A dose lowering technique was utilized adhering to the principles of ALARA. COMPARISON: CT head on 03/18/2023 FINDINGS: Brain: No acute infarct or hemorrhage identified. No extra-axial fluid collection. No mass effect or midline shift. Scattered areas of hypoattenuation in the supratentorial white matter likely represent chronic small vessel ischemic changes. Ventricles and sulci: Prominence of the ventricles and sulci is likely secondary to cerebral volume loss. Bones: Normal. No bony lesion or acute fracture. Subcutaneous tissues: Normal. Sinuses: Normal. No air-fluid levels or mucosal thickening. Mastoid air cells: Normal. Orbits: Grossly unremarkable. Other: Atherosclerotic calcifications in the intracranial vasculature. IMPRESSION: 1. No acute intracranial abnormality. 2. Chronic small vessel ischemic changes and cerebral volume loss. Electronically signed by: Marlee Bowman M.D. 06/21/23 20:19 PM Abdomen/Pelvis CT 06/21/23 19:05 Exam(s): CT ABDOMEN + PELVIS Without Contrast EXAM: CT Abdomen and Pelvis Without Intravenous Contrast CLINICAL HISTORY: Reason for exam: Elevated bilirubin, transaminitis, jaundice. TECHNIQUE: Axial computed tomography images of the abdomen and pelvis without intravenous contrast. CTDI is 12.02 mGy and DLP is 544.47 mGy-cm. Automated exposure control was utilized for the study. A dose lowering technique was utilized adhering to the principles of ALARA. COMPARISON: None FINDINGS: Lung bases: Emphysematous changes. No consolidation. Heart: Mitral annular calcifications. Cardiomegaly. ABDOMEN: Liver: Nonspecific periportal edema. Gallbladder and bile ducts: Unremarkable. No calcified stones. No ductal dilation. Pancreas: Unremarkable. No ductal dilation. Spleen: Unremarkable. No splenomegaly. Adrenals: Unremarkable. No mass. Kidneys and ureters: Unremarkable. No hydronephrosis or stone. Stomach and bowel: Evaluation of the stomach. Severe underdistention. Diverticulosis without evidence of diverticulitis. No small bowel obstruction. PELVIS: Appendix: No findings to suggest acute appendicitis. Bladder: Unremarkable. No stones. Reproductive: Unremarkable as visualized. ABDOMEN and PELVIS: Intraperitoneal space: Unremarkable. No free air. No significant fluid collection. Bones/joints: There are degenerative changes of the spine. No acute fracture. No dislocation. Soft tissues: Body wall edema. Vasculature: Phleboliths in pelvis. Atherosclerotic changes of the vasculature. No aortic aneurysm. Lymph nodes: Unremarkable. No enlarged lymph nodes. IMPRESSION: Nonspecific periportal edema. Electronically signed by: Marlee Bowman M.D. 06/21/23 20:11 PM Liver Ultrasound 06/22/23 11:51 ABDOMINAL ULTRASOUND, RIGHT UPPER QUADRANT HISTORY: Acutely elevated LFTs transaminitis, jaundice, liver failure. COMPARISON: CT abdomen and pelvis 06/21/2023, ultrasound 08/22/2022 FINDINGS: Limited exam secondary to patient's lack of cooperation and positioning. Pancreas: The pancreas is mostly obscured by bowel gas. Liver: 14.7 cm in length. Trace perihepatic ascites. Patent portal vein. No hepatic mass identified. Gallbladder: No gallbladder wall thickening. Small focus of fundal adenomyomatosis. No gallstones. CBD: 4 mm. Right kidney: No hydronephrosis. IMPRESSION: 1. Limited exam as above. 2. Mild adenomyomatosis of the gallbladder. No cholelithiasis or sonographic evidence of acute cholecystitis. 3. No biliary ductal dilation. 4. Trace upper abdominal ascites redemonstrated. ACT 112: Negative or not required by law. Electronically signed by: Victoriano Black M.D. 06/22/2023 2:49 PM PG Care Time/CCT Total # of Minutes Spent Total Time Spent with Patient: Total time spent is greater than 50% in coordination of care (as documented) at patient's floor/unit and/or counseling patient: Coding
[2023-06-23 10:37] LABS: Albumin Globulin Ratio 1.1 (0.9-2); Albumin Level 3.1 gm/dl (3.4-5.0); BUN Creatinine Ratio 28.8 (10-20); Bilirubin,Total 8.1 mg/dl (0.2-1.0); C Reactive Protein 4.17 mg/dl (0-0.5); Calcium 9.9 mg/dl (8.6-10.3); Creatinine Clr Calc Pharmacy 10.9 ml/min; Est GFR (Non-African American) 16.4 ml/min; Globulin 2.8 gm/dl (2.5-4.0); Potassium 5.8 mmol/L (3.5-5.1); Total Protein 5.9 gm/dl (6.0-8.3)
[2023-06-23] MEDS: SODIUM BICARBONATE 8.4% 150 MEQ in WATER, STERILE 1,000 ML IV SCH (10:50)
--- NOTE | 2023-06-23 11:23 | Nephrology Consultation ---
Date of Consultation June 23, 2023 Assessment & Plan (1) SHERI (acute kidney injury): * Oliguric SHERI. 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 No exposure to known nephrotoxic agents, CHRISTIAN/ARB or NSAIDS. 06/21/[address] without contrast was negative for hydronephrosis or stone. Urine sediment is negative for cellular casts. Patient is clinically volume contracted w/ 3rd spacing of volume into the abdomen * Albumin is 3.1. IV colloid is unlikely to further improve oncotic pressure * SBP 97 mm Hg. Will start midodrine and octreotide * Will provide Lokelma 10 g po TID and IV NaHCO3 gtt for management of hyperkalemia * Monitor PRP, UO (2) Chronic kidney disease: * CKD stage G3b (moderate impairment) w/ baseline Cr 1.1 and EGFR 45 cc/min (3) Hyponatremia: * Mild. Will monitor (4) Acute liver failure: * Recommend consultation w/ Gastroenterology * Elevated lactate. 06/21/23 blood cultures were NGTD * MELD 3.0 score is 41. Prognosis is poor. Age and frailty make liver transplant unlikely. Consider consultation with Palliative Care to outline goals of care/transition to comfort measures History of Present Illness Reason for Consultation: SHERI/CKD Attending Physician: Malik Pena DO History of Present Illness Ms. Wilde is an 87 year old white female who is seen at the request of [facility] Hospitalist Service for evaluation of SHERI/CKD. Patient was evaluated in her hospital room this morning. Unfortunately she was lethargic and unable to answer questions or follow commands. Information for the HPI is obtained from the EMR. Ms. Wilde has CKD stage G3b (moderate impairment) w/ baseline Cr 1.1 and EGFR 45 cc/min. Her medical history is significant for cirrhosis, liver cancer, choledocholithiasis, CHF, severe mitral regurgitation and COPD. She was brought to [facility] EMD 06/21/23 with a 2 week h/o progressive jaundice and mental status changes. Evaluation has revealed lactate 11.1, Cr 2.57, Na 134, K 5.8, CO2 13, AST 1120, ALT 446, T. Bili 8.1, INR 3.9. MELD score is 41. 06/22/23 echocardiogram revealed LVEF 55-60% w/ mod MR, normal IVC w/ RASP 3 mm Hg. Allergies Allergy/AdvReac Type Severity Reaction Status Date / Time No Known Allergies Allergy Verified 06/21/23 19:54 Home Medications Medication Instructions Recorded Confirmed Type umeclidinium 62.5 mcg-vilanterol 1 inh inhalation DAILY #60 ea 05/28/23 06/21/23 Rx 25 mcg/actuation powdr for inhalation (Anoro Ellipta) apixaban 2.5 mg tablet (Eliquis) 2.5 mg PO BID #180 tabs 06/04/23 06/21/23 Rx Patient History Medical History Elevated troponin History of cigarette smoking COVID Emphysema lung Severe mitral regurgitation Surgical History No pertinent past surgical history Family History Denies family history of Ovarian cancer Prostate cancer Breast cancer Lung cancer Colorectal cancer Social History Smoking Status: Former smoker Tobacco Type: Cigarettes Age Started Using Tobacco: 17; Age Quit Using Tobacco: 85; packs per day: 1; Second Hand Exposure: No; Do You Dip or Chew Tobacco: No; Hx Alcohol Use: No Hx Substance Use: No Preferred Language: Khmer Communication Ability: Effective Visual Impairment: No Limitations Hearing Ability: Normal Broadcast Maintenance Engineer Required: No Beliefs That Will Affect Care: None marital status: Current Living Situation: Spouse and Family Current Living Situation Comment: Lives with Michel, daughter Charu, and grandson Eddi current occupational 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 How many Children do You have: 1 Feels Safe at Home: Yes Childhood Exposure to Second-Hand Smoke: Yes Diet: regular caffeine: Yes Dental Care, Regularly: No Physical Activity Frequency: Daily Physical Activity Frequency Comment: watched her great granddaughter daily, active >90 min daily Seatbelt Use: always Sunscreen Use: No Assistive Devices: Walker Review of Systems Review of Systems: Unobtainable due to cognitive status Physical Exam Constitutional: weak, emaciated, chronically ill appearing Eyes: sclerae not anicteric ENMT: Mouth: + dry oral mucous membranes Neck: trachea midline, no thyromegaly Respiratory: poor inspiratory effort, bibasilar crackles Cardiovascular: RRR, no murmur, no edema poor skin turgor involving the extremities Gastrointestinal (Abdomen): Inspection/Auscultation: + abdomen distended and + hypoactive bowel sounds Skin: + turgor decreased Neurologic: + obtunded Results & Data Vital Signs (Past 12 Hours) Vital Signs Temp Pulse Pulse Resp BP O2 Del Method 06/23/23 10:55 36.5 C 91 H 16 97/64 L 06/23/23 07:11 35.7 C L 88 16 112/73 06/23/23 02:52 35.7 C L 91 H 20 100/67 06/23/23 01:00 Room Air 06/23/23 00:00 93 H Laboratory Results Laboratory Results WBC 13.27 K/ul (4.8-10.8) H 06/23/23 08:07 RBC 5.34 M/uL (4.20-5.40) 06/23/23 08:07 Hgb 14.1 g/dl (12.0-16.0) 06/23/23 08:07 Hct 45.4 % (37.0-47.0) 06/23/23 08:07 MCV 85.0 fL (80.0-100.0) 06/23/23 08:07 MCH 26.4 pg (25.0-34.0) 06/23/23 08:07 MCHC 31.1 g/dL (32.0-36.0) L 06/23/23 08:07 RDW Std Deviation 67.6 fL (36.4-46.3) H 06/23/23 08:07 RDW Coeff of Selena 23.4 % (11.5-14.5) H 06/23/23 08:07 Plt Count 59 K/uL (130-400) L 06/23/23 08:07 Immature Gran % (Auto) 0.9 % 06/23/23 08:07 Neut % (Auto) 91.6 % 06/23/23 08:07 Lymph % (Auto) 4.1 % 06/23/23 08:07 [place] % (Auto) 3.2 % 06/23/23 08:07 Eos % (Auto) 0.0 % 06/23/23 08:07 Baso % (Auto) 0.2 % 06/23/23 08:07 Neut # (Auto) 12.15 K/uL (1.40-6.50) H 06/23/23 08:07 Lymph # (Auto) 0.55 K/uL (1.20-3.40) L 06/23/23 08:07 [place] # (Auto) 0.43 K/uL (0.11-0.59) 06/23/23 08:07 Eos # (Auto) 0.00 K/uL (0.00-0.50) 06/23/23 08:07 Baso # (Auto) 0.02 K/uL (0.00-0.20) 06/23/23 08:07 Immature Gran # (Auto) 0.12 K/uL (0.01-0.20) 06/23/23 08:07 Absolute Nucleated RBC 0.38 K/uL (0.00-0.12) H 06/23/23 08:07 Nucleated RBC % (auto) 2.9 % 06/23/23 08:07 Platelet Estimate Decreased (Normal) L 06/23/23 05:26 Polychromasia 2+ 06/23/23 08:07 Anisocytosis Present 06/23/23 08:07 Macrocytosis Present 06/21/23 17:17 Tear Drop Cells 1+ 06/23/23 05:26 Ovalocytes 1+ 06/21/23 17:17 Echinocytes 1+ 06/23/23 05:26 PT 38.9 Seconds (9.0-12.0) H 06/23/23 05:26 INR 3.9 (0.9-1.1) H 06/23/23 05:26 APTT 54 Seconds (21-31) H 06/22/23 02:20 PTT Ratio 1.9 06/22/23 02:20 ABG pH 7.41 (7.35-7.45) 06/22/23 08:31 ABG pCO2 29 mmHg (35-46) L 06/22/23 08:31 ABG pO2 76 mmHg (80-95) L 06/22/23 08:31 ABG HCO3 18 mmol/L (19-24) L 06/22/23 08:31 ABG O2 Saturation 96.1 % (90-95) H 06/22/23 08:31 ABG Base Excess -5.0 mEq/L (-9-1.8) 06/22/23 08:31 Bobby Test Pos (Pos) 06/22/23 08:31 VBG pH 7.13 (7.36-7.41) L 06/21/23 23:15 VBG pCO2 56 mmHg (38-50) H 06/21/23 23:15 VBG pO2 < 20 mmHg 06/21/23 23:15 VBG HCO3 19 mmol/L 06/21/23 23:15 VBG O2 Saturation < 60.0 % 06/21/23 23:15 VBG Base Excess -11.0 mEq/L 06/21/23 23:15 Oxygen Given ROOM AIR 06/22/23 08:31 Sodium 134 mmol/L (136-145) L 06/23/23 09:36 Potassium 5.8 mmol/L (3.5-5.1) H 06/23/23 09:36 Chloride 101 mmol/L (98-107) 06/23/23 09:36 Carbon Dioxide 13 mmol/L (21-32) L 06/23/23 09:36 Anion Gap 20 (3-11) H 06/23/23 09:36 BUN 74 mg/dl (6-23) H 06/23/23 09:36 Creatinine 2.57 mg/dl (0.6-1.2) H 06/23/23 09:36 Est Cr Clr Drug Dosing 10.9 ml/min 06/23/23 09:36 Est GFR ( Amer) 19.0 ml/min 06/23/23 09:36 Est GFR (Non-Af Amer) 16.4 ml/min 06/23/23 09:36 BUN/Creatinine Ratio 28.8 (10-20) H 06/23/23 09:36 Glucose 87 mg/dl (70-99(Fasting)) 06/23/23 09:36 POC Glucose 77 mg/dl (70-99) 06/23/23 06:09 Lactate 9.3 mmol/L (0.4-2.0) H* 06/23/23 09:56 Calcium 9.9 mg/dl (8.6-10.3) 06/23/23 09:36 Magnesium 2.3 mg/dl (1.7-2.4) 06/23/23 05:26 Ferritin 72.7 ng/ml (8-388) 06/21/23 19:05 Total Bilirubin 8.1 mg/dl (0.2-1.0) H 06/23/23 09:36 AST 1120 U/L (13-39) H 06/23/23 09:36 ALT 446 U/L (7-52) H 06/23/23 09:36 Alkaline Phosphatase 90 U/L (34-104) 06/23/23 09:36 Ammonia 37.0 umol/L (18-72) 06/21/23 17:17 Troponin I High Sens 44.8 pg/ml (0-14) H 06/22/23 02:20 C-Reactive Protein 4.17 mg/dl (0-0.5) H 06/23/23 09:36 B-Natriuretic Peptide > 4700 pg/ml (0-100) H 06/21/23 17:17 Total Protein 5.9 gm/dl (6.0-8.3) L 06/23/23 09:36 Albumin 3.1 gm/dl (3.4-5.0) L 06/23/23 09:36 Globulin 2.8 gm/dl (2.5-4.0) 06/23/23 09:36 Albumin/Globulin Ratio 1.1 (0.9-2) 06/23/23 09:36 Procalcitonin 1.74 ng/ml (0-0.5) H 06/23/23 08:07 Urine Color Dark Yellow 06/21/23 19:50 Urine Appearance Clear (Clear) 06/21/23 19:50 Urine pH 5.0 (4.5-7.5) 06/21/23 19:50 Ur Specific [place] 1.015 (1.000-1.030) 06/21/23 19:50 Urine Protein 1+ (Negative) H 06/21/23 19:50 Urine Glucose (UA) Negative (Negative) 06/21/23 19:50 Urine Ketones Negative (Negative) 06/21/23 19:50 Urine Blood Negative (Negative) 06/21/23 19:50 Urine Nitrite Negative (Negative) 06/21/23 19:50 Urine Bilirubin 1+ (Negative) H 06/21/23 19:50 Urine Urobilinogen Negative (Negative) 06/21/23 19:50 Ur Leukocyte Esterase Negative (Negative) 06/21/23 19:50 Urine WBC (Auto) 0-5 /hpf (0-5) 06/21/23 19:50 Urine RBC (Auto) 0-2 /hpf (0-2) 06/21/23 19:50 U Hyaline Cast (Auto) 6-10 /lpf (0-2) H 06/21/23 19:50 U Epithel Cells (Auto) 3-5 /hpf (0-2) H 06/21/23 19:50 Urine Bacteria (Auto) None Seen (None Seen) 06/21/23 19:50 Acetaminophen < 3 ug/ml (10-30) L 06/22/23 02:20 Anaplasma Smear See Comment 06/21/23 17:17 Babesia Smear See Comment 06/21/23 17:17 Lyme Disease Screen Negative (Negative) 06/21/23 17:17 SARS-CoV-2 (PCR) NEGATIVE (Negative) 06/21/23 Unknown Hepatitis A IgM Ab Cancelled 06/21/23 23:15 Hep Bs Antigen Cancelled 06/21/23 23:15 Hep Bs Ag Confirmation Cancelled 06/21/23 23:15 Hep B Core IgM Ab Cancelled 06/21/23 23:15 Hepatitis C Ab (EIA) Cancelled 06/21/23 23:15 Influenza Type A (PCR) Negative (Neg) 06/21/23 Unknown Influenza Type B (PCR) Negative (Neg) 06/21/23 Unknown RSV (RT-PCR) Negative (Neg) 06/21/23 Unknown Impressions Chest X-Ray 06/21/23 15:41 XR chest 1V portable CLINICAL HISTORY: Sepsis. COMPARISON STUDY: Chest CT August 22, 2022. Chest radiograph March 18, 2023. FINDINGS: There is no pneumothorax or pleural effusion. Moderate cardiomegaly is unchanged. There is extensive mitral annular calcification. Prominence of the bilateral jalyn is likely due to dilated central pulmonary arteries. There is mild interstitial thickening. Underlying emphysema is present. There is no consolidation to suggest pneumonia. IMPRESSION: Cardiomegaly. Interstitial thickening favors mild pulmonary edema. ACT 112: Negative or not required by law. Electronically signed by: Minh Fajardo M.D. 06/21/2023 6:[address] 06/21/23 16:39 Exam(s): CT HEAD Without Contrast EXAM: CT Head Without Intravenous Contrast CLINICAL HISTORY: Reason for exam: AMS. TECHNIQUE: Axial computed tomography images of the head/brain without intravenous contrast. CTDI is 37.95 mGy and DLP is 546.36 mGy-cm. Automated exposure control was utilized for the study. A dose lowering technique was utilized adhering to the principles of ALARA. COMPARISON: CT head on 03/18/2023 FINDINGS: Brain: No acute infarct or hemorrhage identified. No extra-axial fluid collection. No mass effect or midline shift. Scattered areas of hypoattenuation in the supratentorial white matter likely represent chronic small vessel ischemic changes. Ventricles and sulci: Prominence of the ventricles and sulci is likely secondary to cerebral volume loss. Bones: Normal. No bony lesion or acute fracture. Subcutaneous tissues: Normal. Sinuses: Normal. No air-fluid levels or mucosal thickening. Mastoid air cells: Normal. Orbits: Grossly unremarkable. Other: Atherosclerotic calcifications in the intracranial vasculature. IMPRESSION: 1. No acute intracranial abnormality. 2. Chronic small vessel ischemic changes and cerebral volume loss. Electronically signed by: Marlee Bowman M.D. 06/21/23 20:19 PM Abdomen/Pelvis CT 06/21/23 19:05 Exam(s): CT ABDOMEN + PELVIS Without Contrast EXAM: CT Abdomen and Pelvis Without Intravenous Contrast CLINICAL HISTORY: Reason for exam: Elevated bilirubin, transaminitis, jaundice. TECHNIQUE: Axial computed tomography images of the abdomen and pelvis without intravenous contrast. CTDI is 12.02 mGy and DLP is 544.47 mGy-cm. Automated exposure control was utilized for the study. A dose lowering technique was utilized adhering to the principles of ALARA. COMPARISON: None FINDINGS: Lung bases: Emphysematous changes. No consolidation. Heart: Mitral annular calcifications. Cardiomegaly. ABDOMEN: Liver: Nonspecific periportal edema. Gallbladder and bile ducts: Unremarkable. No calcified stones. No ductal dilation. Pancreas: Unremarkable. No ductal dilation. Spleen: Unremarkable. No splenomegaly. Adrenals: Unremarkable. No mass. Kidneys and ureters: Unremarkable. No hydronephrosis or stone. Stomach and bowel: Evaluation of the stomach. Severe underdistention. Diverticulosis without evidence of diverticulitis. No small bowel obstruction. PELVIS: Appendix: No findings to suggest acute appendicitis. Bladder: Unremarkable. No stones. Reproductive: Unremarkable as visualized. ABDOMEN and PELVIS: Intraperitoneal space: Unremarkable. No free air. No significant fluid collection. Bones/joints: There are degenerative changes of the spine. No acute fracture. No dislocation. Soft tissues: Body wall edema. Vasculature: Phleboliths in pelvis. Atherosclerotic changes of the vasculature. No aortic aneurysm. Lymph nodes: Unremarkable. No enlarged lymph nodes. IMPRESSION: Nonspecific periportal edema. Electronically signed by: Marlee Bowman M.D. 06/21/23 20:11 PM Liver Ultrasound 06/22/23 11:51 ABDOMINAL ULTRASOUND, RIGHT UPPER QUADRANT HISTORY: Acutely elevated LFTs transaminitis, jaundice, liver failure. COMPARISON: CT abdomen and pelvis 06/21/2023, ultrasound 08/22/2022 FINDINGS: Limited exam secondary to patient's lack of cooperation and positioning. Pancreas: The pancreas is mostly obscured by bowel gas. Liver: 14.7 cm in length. Trace perihepatic ascites. Patent portal vein. No hepatic mass identified. Gallbladder: No gallbladder wall thickening. Small focus of fundal adenomyomatosis. No gallstones. CBD: 4 mm. Right kidney: No hydronephrosis. IMPRESSION: 1. Limited exam as above. 2. Mild adenomyomatosis of the gallbladder. No cholelithiasis or sonographic evidence of acute cholecystitis. 3. No biliary ductal dilation. 4. Trace upper abdominal ascites redemonstrated. ACT 112: Negative or not required by law. Electronically signed by: Victoriano Black M.D. 06/22/2023 2:49 PM PG Care Time/CCT Total # of Minutes Spent Total Time Spent with Patient: Total time spent is greater than 50% in coordination of care (as documented) at patient's floor/unit and/or counseling patient: Coding Level of Care Code 05634 IN/OBS CONSULT LVL 5,80M Diagnoses SHERI (acute kidney injury) N17.9 Chronic kidney disease N18.9 Hyponatremia E87.1 Acute liver failure K72.00
[2023-06-23] MEDS: MIDODRINE HCL 2.5 MG TAB PO SCH (12:31)
[2023-06-23] MEDS: SODIUM ZIRCONIUM CYCLOSILICATE 10 GM PACKET PO SCH (12:31)
[2023-06-23] MEDS: OCTREOTIDE ACETATE 100 MCG/ML VIAL SQ SCH (12:31)
[2023-06-23 12:32] LABS: HBSAG NON-REACTIVE (NON-REACTIVE); Hepatitis A Antibody IgM NON-REACTIVE (NON-REACTIVE); Hepatitis B Core Antibody IgM NON-REACTIVE (NON-REACTIVE)
--- NOTE | 2023-06-23 14:25 | Cardiology Consultation ---
Date of Consultation June 23, 2023 Assessment & Plan (1) Severe mitral regurgitation: -current evaluation notes moderate mitral regurgitation with normal LV function. -she was previously evaluated at [place] and not felt to be a candidate for a mitral valve procedure. -do not feel mitral regurgitation is a factor in her progressive hepatic and renal disorders. (2) Acute on chronic diastolic CHF (congestive heart failure): -she is currently euvolemic to dehydrated. (3) Acute liver failure: -progressive transaminitis since admission. (4) SHERI (acute kidney injury): -management per Dr. Osullivan. History of Present Illness Attending Physician: Malik Pena DO History of Present Illness Mrs. Wilde is an 87-year-old female admitted on June 20 fatigue, mental status changes, and jaundice. This consultation was ordered to assist in her cardiac management. The patient typically sees Dr. Olea and Luly Whitaker. The patient was in usual state of health until approximately 2 weeks prior to presentation. According to the record, she complained of approximately 2 weeks of increasing fatigue and jaundice. She was seen by Luly Whitaker PA-C on June 17 and felt to be euvolemic. Because of complaints of confusion, she checked liver transaminases which were elevated (AST was 73, ALT was 63). The patient does carry history of mitral valve prolapse and severe mitral regurgitation. This was discovered back in April of 2021 by an echocardiogram performed due to cardiomegaly. This noted anterior mitral leaflet prolapse with severe mitral regurgitation. The patient was then evaluated at [facility] in June 2021 to consider a mitral valve procedure. The patient was felt to have no indications for valve repair at that time. She was also felt to be a poor an invasive procedure. Because of increasing liver transaminases, and her creatinine level, an echocardiogram was performed to reassess her cardiac status. Fortunately, this noted normal systolic function with ejection fraction 55-60%. There was prolapse of the anterior mitral leaflet and moderate mitral regurgitation. Compared with study performed in January 2023, regurgitant valvular lesions were improved. The patient was evaluated in her room this morning. She was lethargic and unable to participate with the interview. Past medical and surgical history 1. Chronic diastolic CHF 2. Anterior mitral leaflet prolapse 3. Severe mitral regurgitation 4. Paroxysmal atrial fibrillation-April 2023 5. Chronic renal failure 6. COPD Social history and lives with her Quit tobacco use at age 85, 60 pack year history No alcohol Family history Noncontributory Review of systems A 10 point review of systems was unobtainable Allergies Allergy/AdvReac Type Severity Reaction Status Date / Time No Known Allergies Allergy Verified 06/21/23 19:54 Home Medications Medication Instructions Recorded Confirmed Type umeclidinium 62.5 mcg-vilanterol 1 inh inhalation DAILY #60 ea 05/28/23 06/21/23 Rx 25 mcg/actuation powdr for inhalation (Anoro Ellipta) apixaban 2.5 mg tablet (Eliquis) 2.5 mg PO BID #180 tabs 06/04/23 06/21/23 Rx Patient History Medical History Elevated troponin History of cigarette smoking COVID Emphysema lung Severe mitral regurgitation Surgical History No pertinent past surgical history Family History Denies family history of Ovarian cancer Prostate cancer Breast cancer Lung cancer Colorectal cancer Social History Smoking Status: Former smoker Tobacco Type: Cigarettes Age Started Using Tobacco: 17; Age Quit Using Tobacco: 85; packs per day: 1; Second Hand Exposure: No; Do You Dip or Chew Tobacco: No; Hx Alcohol Use: No Hx Substance Use: No Preferred Language: Pashto Communication Ability: Effective Visual Impairment: No Limitations Hearing Ability: Normal Outreach Nurse Required: No Beliefs That Will Affect Care: None marital status: Current Living Situation: Spouse and Family Current Living Situation Comment: Lives with Michel, daughter Charu, and grandson Eddi current occupational 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 HEENT exam notes scleral icterus. Neck is supple with full carotid upstrokes. No carotid bruits. Jugular is pressure is difficult to assess. Cardiovascular exam reveals a regular rhythm with a 2/6 holosystolic murmur heard across the entire precordium. Lungs are clear anteriorly. Abdomen is soft. Extremities r eveal intact radial artery pulses bilaterally. There is trace pretibial edema. Results & Data Vital Signs (Past 12 Hours) Vital Signs Temp Pulse Resp BP O2 Del Method 06/23/23 10:55 36.5 C 91 H 16 97/64 L 06/23/23 08:00 Room Air 06/23/23 07:11 35.7 C L 88 16 112/73 06/23/23 02:52 35.7 C L 91 H 20 100/67 Laboratory Results CBC notes hemoglobin 14.1, hematocrit 45.4, white count 13.3, [place] [address]. Electrolytes note a sodium of 134, potassium 5.8, chloride 101, bicarb 13, BUN 74, creatinine 2.57. Initial high sensitivity troponin was 50.7 with follow-up values of 54.1 and 44.8. BNP on presentation was greater than 47,000. AST is no 1120 with an ALT of 446. Lactate level is 9.3 with a procalcitonin of 1.74. Diagnostic Findings Echocardiogram as described above. 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 No atrial fibrillation. PG Care Time/CCT Total # of Minutes Spent Total Time Spent with Patient: Total time spent is greater than 50% in coordination of care (as documented) at patient's floor/unit and/or counseling patient: Coding Level of Care Code 63683 INT INP/OBS CARE 3/75MIN Diagnoses Severe mitral regurgitation I34.0 Acute on chronic diastolic CHF (congestive heart failure) I50.33 Acute liver failure K72.00 SHERI (acute kidney injury) N17.9
--- NOTE | 2023-06-23 16:09 | Gastrointestinal Consultation ---
Date of Consultation June 23, 2023 Assessment & Plan (1) Acute liver failure: Patient is an 87 yo female with worsening jaundice, fatigue, & evidence of acute liver failure. Infectious hepatitis panel negative, ferritin unremarkable, AST 1200, ALT 466, T bili 8.1. MELD around 40. Likely underlying etiology related to severe cardiac issues that have previously been deemed inoperable. -Follow LFTs -Not a liver transplant candidate due to age & comorbidities so there is not really a benefit of transferring to a liver transplant center -Poor prognosis overall, we discussed the option of palliative care with daughter Supervising Physician Co-Signing Physician Notes Agree with AISHWARYA Ta as above Interviewed and examined patient, and agree with above Abd: Soft, NT, ND Continue current therapy and supportive care Most likely Ischemic hepatitis due to underlying cardiac issues Prognosis is very poor and family will consider palliative care. History of Present Illness Reason for Consultation: Acute liver failure Attending Physician: Malik Pena DO History of Present Illness Sandra is an 87yo female with PMH of severe mitral regurgitation, CHF, COPD, and emphysema. She presented to the ED with family with the chief complaint of jaundice x 2 weeks. She was noted to have significant laboratory abnormalities in the ED with an elevated troponin, elevated INR of 3.9, Lactate of 11.1, T bili 7.1, AST 513, ALT 248, troponin of 54, & procalcitonin of 1.74. BNP was 4700. She had previously followed with heart failure clinic, but unfortunately her Lasix had to be stopped recently due to kidney function. She is notably jau ndiced. She has a history of severe mitral regurgitation for which she is reportedly not a candidate for repair. CT scan and US do not show acute liver issues, but do show periportal edema. Patient is lethargic and does not participate in the encounter. Daughter is at bedside. Allergies Allergy/AdvReac Type Severity Reaction Status Date / Time No Known Allergies Allergy Verified 06/21/23 19:54 Home Medications Medication Instructions Recorded Confirmed Type umeclidinium 62.5 mcg-vilanterol 1 inh inhalation DAILY #60 ea 05/28/23 06/21/23 Rx 25 mcg/actuation powdr for inhalation (Anoro Ellipta) apixaban 2.5 mg tablet (Eliquis) 2.5 mg PO BID #180 tabs 06/04/23 06/21/23 Rx Patient History Medical History Elevated troponin History of cigarette smoking COVID Emphysema lung Severe mitral regurgitation Surgical History No pertinent past surgical history Family History Denies family history of Ovarian cancer Prostate cancer Breast cancer Lung cancer Colorectal cancer Social History Smoking Status: Former smoker Tobacco Type: Cigarettes Age Started Using Tobacco: 17; Age Quit Using Tobacco: 85; packs per day: 1; Second Hand Exposure: No; Do You Dip or Chew Tobacco: No; Hx Alcohol Use: No Hx Substance Use: No Preferred Language: Slovak Communication Ability: Effective Visual Impairment: No Limitations Hearing Ability: Normal Tool Designer Required: No Beliefs That Will Affect Care: None marital status: Current Living Situation: Spouse and Family Current Living Situation Comment: Lives with Michel, daughter Charu, and grandson Eddi current occupational 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 How many Children do You have: 1 Feels Safe at Home: Yes Childhood Exposure to Second-Hand Smoke: Yes Diet: regular caffeine: Yes Dental Care, Regularly: No Physical Activity Frequency: Daily Physical Activity Frequency Comment: watched her great granddaughter daily, active >90 min daily Seatbelt Use: always Sunscreen Use: No Assistive Devices: Walker Review of Systems Review of Systems: Unobtainable due to cognitive status Physical Exam Constitutional: + ill appearing Respiratory: normal respiratory effort Gastrointestinal (Abdomen): Percussion/Palpation: abdomen nontender Results & Data Vital Signs (Past 12 Hours) Vital Signs Temp Pulse Resp BP O2 Del Method 06/23/23 10:55 36.5 C 91 H 16 97/64 L 06/23/23 08:00 Room Air 06/23/23 07:11 35.7 C L 88 16 112/73 PG Care Time/CCT Total # of Minutes Spent Total Time Spent with Patient: Total time spent is greater than 50% in coordination of care (as documented) at patient's floor/unit and/or counseling patient: Coding Level of Care Code 50504 INT INP/OBS CARE 3/75MIN Diagnoses Acute liver failure K72.00
--- NOTE | 2023-06-23 17:21 | Billing Data ---
Date of Service June 23, 2023 Coding Level of Care Code 52565 SUB INP/OBS CARE
[2023-06-24 04:47] LABS: BUN Creatinine Ratio 31.2 (10-20); Creatinine Clr Calc Pharmacy 10.5 ml/min; Est GFR (African American) 18.2 ml/min; Est GFR (Non-African American) 15.7 ml/min; Potassium 5.1 mmol/L (3.5-5.1)
[2023-06-24 04:49] LABS: Albumin Globulin Ratio 1.1 (0.9-2); Albumin Level 3.1 gm/dl (3.4-5.0); Bilirubin,Total 8.4 mg/dl (0.2-1.0); Globulin 2.8 gm/dl (2.5-4.0); Total Protein 5.9 gm/dl (6.0-8.3)
[2023-06-24 04:59] LABS: INR 3.7 (0.9-1.1)
[2023-06-24 05:00] LABS: Hematocrit (blood only) 46.8 % (37.0-47.0); Hemoglobin 14.7 g/dl (12.0-16.0); Mean Corpuscular Hgb Conc 31.4 g/dL (32.0-36.0); Mean Corpuscular Volume 82.7 fL (80.0-100.0); Nucleated RBC # (auto) 0.34 K/uL (0.00-0.12); Nucleated RBC % (auto) 2.5 %; Platelet Count 67 K/uL (130-400); RDW Standard Deviation 63.3 fL (36.4-46.3); Red Blood Count 5.66 M/uL (4.20-5.40); White Blood Count 13.54 K/ul (4.8-10.8)
[2023-06-24 05:03] LABS: Anisocytosis Present; Basophils # (auto) 0.01 K/uL (0.00-0.20); Basophils % (auto) 0.1 %; Eosinophils # (auto) 0.01 K/uL (0.00-0.50); Eosinophils % (auto) 0.1 %; Immature Granulocytes # (auto) 0.07 K/uL (0.01-0.20); Immature Granulocytes % (auto) 0.5 %; Lymphocytes # (auto) 1.55 K/uL (1.20-3.40); Lymphocytes % (auto) 11.4 %; Neutrophils % (auto) 84.9 %; Polychromasia 1+; Tear Drop Cells 2+
[2023-06-24 05:05] LABS: ANTI-Xa, UFH(UnfractionatedHep 0.92 IU/ml (0.3-0.7)
--- NOTE | 2023-06-24 07:31 | Hospitalist Progress Note ---
"Date of Service June 24, 2023 Assessment & Plan (1) Acute liver failure: Plan: Sandra is an 87F with CKD, CHF, CAD, COPD, lung nodules, chorea, cerebrovascular disease, severe MR, and prior smoking who presented for worsening weakness and jaundice and was admitted for acute liver failure. Ongoing negative progression despite interventions, specialist noting poor prognosis, extensive conversations with family regarding poor prognosis in the setting of multiorgan failure in the setting of primary liver failure, patient restless but denies pain. Family would like to come see patient prior to decisions regarding goals of care. Acute Liver Failure | Elevated Bilirubin | Transaminitis | Thrombocytopenia - Presented with 2 weeks of worsening fatigue and jaundice in the setting of 3 years of progressively feeling more unwell - Abnormal LFTs on presentation, but now significantly worsened w/o benefit from diuresis (Lasic 20 mg IV x 3 06/21) - Lactate elevated on admission, continues to rise, patient dry on exam and likely intravascularly depleted w/ third spaced edema - Patient remains borderline hypotensive - Studies: Tickborne panel - negative Hepatitis panel - negative Ferritin - normal CTAP - nonspecific periportal edema Liver US - trace perihepatic ascites, no hepatic masses, fundal gallbladder adenomyomatosis, no biliary ductal dilation - While history suggestive of congestive hepatopathy, Echocardiogram not fully supportive of this differential Potential poor forward flow from MVP TTE- EF 55-60%, less mitral regurgitation compared to 01/2023 study Consulted Cardiology: Appreciate Recommendations - MELD Na 39, mortality risk > 65%, prognosis likely poor - Consulted GI: Appreciate Recommendations SIRS + w/ Unknown Source - Leukocytosis > 12, Temp < 36, and tachycardia - STAT blood cultures, lactate ordered Lactate up to 11.1 (potentially secondary to intravascular depletion) - Started Daptomycin and Cefepime (avoiding Nephrotoxic agents) - Hold additional Lasix CHF | Elevated BNP | Elevated Troponin | A Fib - BNP elevated to 4700 on admission, from 3207 on 06/04/23 - Troponin elevated on arrival, peaked at 54, chronically elevated - Echocardiogram w/o significant change - A Fib: currently in NSR, Eliquis held - Patient appearing euvolemic to dry on exam with significant third spacing - No benefit with trial of diuresis - Cardiology consulted as above: Appreciate recommendations SHERI - SHERI noted on presentation, Cr continues to rise - Continue avoidance of Nephrotoxic agents, including Lasix - 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 - Consulted Nephrology: Appreciate recommendations Hyponatremia - Na 129 on arrival, potential component of acute liver failure vs intravascular depletion - Discontinued home Lasix days prior to admission - S/p inpatient diuresis, Na has risen, but likely d/t hemoconcentration - Continue to monitor Confusion - Noted by family to have acutely worsened over last 2 weeks - CT w/o acute findings - Ammonia level normal - Likely multifactorial given acute liver failure, SHERI, and hyponatremia LE Ulcerations - Continue daily wound care (2) Thrombocytopenia: (3) Acute on chronic diastolic CHF (congestive heart failure): (4) SHERI (acute kidney injury): (5) Elevated troponin: (6) Hyponatremia: (7) Altered mental status: (8) Unspecified atrial fibrillation: (9) Venous ulcers of both lower extremities: (10) Severe mitral regurgitation: Plan Disposition: PCU DNR/DNI AHA, low-sodium diet VTE PPx: Artie held Admission and Anticipated Discharge Date Admission Date: June 21, 2023 Supervising Physician Co-Signing Physician Notes I personally examined the patient and verified all cartwright points of history and exam, discussed case, and agree with decision making with Dr Valadez Updated daughter and family extensively. Answered all questions the best my ability. Not much of any meaningful HPI review of systems obtainable from patient. Discussed with nursing. Prichard throughout the daycomfortable but restless, no appearance of pain. Vitals noted, in general she is resting comfortably does not stir much, and then does become a bit restless at the time in the room but does not necessarily appear to be uncomfortable. Breathing unlabored no accessory muscle use good effort. Skin is ashen and fairly jaundiced. Liver failure/renal failure/metabolic encephalopathy/mild demand ischemia - unfortunately worsening dramatically. Offloading fluid was nominally successful at best, and her situation continues to worsen. Appears that she is progressing in a terminal multiorgan failure most acutely mediated by her fulminant liver failure. Family aware of thisand moving quickly towards a comfort measures only strategy. Right now holding off on any medications for discomfort given that she appears to be restless more than uncomfortable, and because they are quite aware that even at low doses geared only for comfort, medications may cause a terminal suppression with herand they would like for family to be able to see her to say goodbye before she passes. Certainly if she becomes truly uncomfortable in a way that appears she is suffering we would need to readdress, but this absolutely does not appear to be the case at this time. Subjective 06/23: Patient comfortable with at bedside. No acute concerns. Denies pain, but notes she remains tired. Patient drifts in an out of sleep. Physical Exam Physical Exam: Gen: NAD, weak, chronically ill appearing HEENT: Supple, no LAD, no thyromegaly, no JVD, dry mucous membranes Resp:Mildly labored, diminished but no wheezing/rhonchi/rales, CTAB CV:tachycardic, regular rhythm, normal S1/S2, no M/R/G Abd: Soft, moderately-distended, no TTP, normoactive bowels, no masses Extr: 2+ dp bilaterally, 2+ pitting edema bilaterally Skin: Jaundiced, pale skin; purple/black discoloration of fingers and toes w/ likely ischemic ulcerations on legs. Results & Data Results & Data Vital Signs (Past 12 Hours) Vital Signs Temp Pulse Pulse Resp BP Pulse Ox O2 Del Method 06/24/23 07:17 35.8 C L 92 H 18 89/58 L 94 Room Air 06/24/23 03:00 36.3 C L 68 20 87/64 L 92 Room Air 06/23/23 23:17 36.3 C L 73 20 93/59 L Room Air 06/23/23 22:56 80 06/23/23 20:00 Room Air Resident Activity Tracking Resident Involvement: Resident Care Provided Care Provided: Adult Hospital Medicine"
--- NOTE | 2023-06-24 08:41 | Nephrology Progress Note ---
Date of Service June 24, 2023 Assessment & Plan (1) SHERI (acute kidney injury): Plan: * Oliguric SHERI. 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 No exposure to known nephrotoxic agents, CHRISTIAN/ARB or NSAIDS. 06/21/[address] without contrast was negative for hydronephrosis or stone. Urine sediment is negative for cellular casts. Patient is clinically volume contracted w/ 3rd spacing of volume into the abdomen * Albumin is 3.1. IV colloid is unlikely to further improve oncotic pressure * SBP 89 mm Hg. Midodrine and octreotide have been started * Potassium and bicarbonate corrected following Lokelma and IV NaHCO3 administration * Monitor PRP, UO (2) Chronic kidney disease: Plan: * CKD stage G3b (moderate impairment) w/ baseline Cr 1.1 and EGFR 45 cc/min (3) Hyponatremia: Plan: * Mild. Will monitor (4) Acute liver failure: Plan: * Progressive increase in LFT's * Elevated lactate. 06/21/23 blood cultures were NGTD * MELD 3.0 score is 41. Prognosis remains poor. Age and frailty make liver transplant unlikely. understands prognosis and is receptive to Palliative Care consultation to outline goals of care/transition to comfort measures Admission and Anticipated Discharge Date Admission Date: June 21, 2023 Subjective Mrs. Wilde was evaluated in her hospital room this morning. Her was at bedside. Mrs. Wilde was awake but oriented to self only. She remains notably jaundiced Review of Systems Review of Systems: Unobtainable due to cognitive status Physical Exam Eyes: sclerae not anicteric ENMT: Mouth: + dry oral mucous membranes Neck: trachea midline, no thyromegaly Cardiovascular: RRR, no murmur, no edema Gastrointestinal (Abdomen): Inspection/Auscultation: + abdomen distended and + hypoactive bowel sounds Skin: + turgor decreased Neurologic: awake and + confused Results & Data Vital Signs (Past 12 Hours) Vital Signs Temp Pulse Pulse Resp BP Pulse Ox O2 Del Method 06/24/23 07:17 35.8 C L 92 H 18 89/58 L 94 Room Air 06/24/23 03:00 36.3 C L 68 20 87/64 L 92 Room Air 06/23/23 23:17 36.3 C L 73 20 93/59 L Room Air 06/23/23 22:56 80 Laboratory Results Laboratory Results - last 24 hr 06/22/23 06/23/23 06/23/23 05:33 08:07 09:36 WBC 13.27 H RBC 5.34 Hgb 14.1 Hct 45.4 MCV 85.0 MCH 26.4 MCHC 31.1 L RDW Std Deviation 67.6 H RDW Coeff of Selena 23.4 H Plt Count 59 L Immature Gran % (Auto) 0.9 Neut % (Auto) 91.6 Lymph % (Auto) 4.1 Bracken % (Auto) 3.2 Eos % (Auto) 0.0 Baso % (Auto) 0.2 Neut # (Auto) 12.15 H Lymph # (Auto) 0.55 L Bracken # (Auto) 0.43 Eos # (Auto) 0.00 Baso # (Auto) 0.02 Immature Gran # (Auto) 0.12 Absolute Nucleated RBC 0.38 H Nucleated RBC % (auto) 2.9 Polychromasia 2+ Anisocytosis Present Tear Drop Cells PT INR Heparin Anti-Xa, Unfract Sodium Cancelled 134 L Potassium Cancelled 5.8 H Chloride Cancelled 101 Carbon Dioxide Cancelled 13 L Anion Gap Cancelled 20 H BUN Cancelled 74 H Creatinine Cancelled 2.57 H Est Cr Clr Drug Dosing Cancelled 10.9 Est GFR ( Amer) Cancelled 19.0 Est GFR (Non-Af Amer) Cancelled 16.4 BUN/Creatinine Ratio Cancelled 28.8 H Glucose Cancelled 87 POC Glucose Lactate 11.1 H* Calcium Cancelled 9.9 Total Bilirubin Cancelled 8.1 H AST Cancelled 1120 H ALT Cancelled 446 H Alkaline Phosphatase Cancelled 90 C-Reactive Protein Cancelled 4.17 H Total Protein Cancelled 5.9 L Albumin Cancelled 3.1 L Globulin Cancelled 2.8 Albumin/Globulin Ratio Cancelled 1.1 Procalcitonin 1.74 H Hepatitis A IgM Ab NON-REACTIVE Hep Bs Antigen NON-REACTIVE Hep Bs Ag Confirmation TNP Hep B Core IgM Ab NON-REACTIVE Hepatitis C Ab (EIA) NON-REACTIVE 06/23/23 06/23/23 06/23/23 09:56 12:09 16:19 WBC RBC Hgb Hct MCV MCH MCHC RDW Std Deviation RDW Coeff of Selena Plt Count Immature Gran % (Auto) Neut % (Auto) Lymph % (Auto) Bracken % (Auto) Eos % (Auto) Baso % (Auto) Neut # (Auto) Lymph # (Auto) Bracken # (Auto) Eos # (Auto) Baso # (Auto) Immature Gran # (Auto) Absolute Nucleated RBC Nucleated RBC % (auto) Polychromasia Anisocytosis Tear Drop Cells PT INR Heparin Anti-Xa, Unfract Sodium Potassium Chloride Carbon Dioxide Anion Gap BUN Creatinine Est Cr Clr Drug Dosing Est GFR ( Amer) Est GFR (Non-Af Amer) BUN/Creatinine Ratio Glucose POC Glucose 91 101 H Lactate 9.3 H* Calcium Total Bilirubin AST ALT Alkaline Phosphatase C-Reactive Protein Total Protein Albumin Globulin Albumin/Globulin Ratio Procalcitonin Hepatitis A IgM Ab Hep Bs Antigen Hep Bs Ag Confirmation Hep B Core IgM Ab Hepatitis C Ab (EIA) 06/24/23 06/24/23 00:05 04:04 WBC 13.54 H RBC 5.66 H Hgb 14.7 Hct 46.8 MCV 82.7 MCH 26.0 MCHC 31.4 L RDW Std Deviation 63.3 H RDW Coeff of Selena 23.0 H Plt Count 67 L Immature Gran % (Auto) 0.5 Neut % (Auto) 84.9 Lymph % (Auto) 11.4 Bracken % (Auto) 3.0 Eos % (Auto) 0.1 Baso % (Auto) 0.1 Neut # (Auto) 11.50 H Lymph # (Auto) 1.55 Bracken # (Auto) 0.40 Eos # (Auto) 0.01 Baso # (Auto) 0.01 Immature Gran # (Auto) 0.07 Absolute Nucleated RBC 0.34 H Nucleated RBC % (auto) 2.5 Polychromasia 1+ Anisocytosis Present Tear Drop Cells 2+ PT 37.0 H INR 3.7 H Heparin Anti-Xa, Unfract 0.92 H* Sodium 133 L Potassium 5.1 Chloride 96 L Carbon Dioxide 24 Anion Gap 13 H BUN 83 H Creatinine 2.66 H Est Cr Clr Drug Dosing 10.5 Est GFR ( Amer) 18.2 Est GFR (Non-Af Amer) 15.7 BUN/Creatinine Ratio 31.2 H Glucose 119 H POC Glucose 177 H Lactate Calcium 9.0 Total Bilirubin 8.4 H AST 2632 H ALT 1141 H Alkaline Phosphatase 91 C-Reactive Protein Total Protein 5.9 L Albumin 3.1 L Globulin 2.8 Albumin/Globulin Ratio 1.1 Procalcitonin Hepatitis A IgM Ab Hep Bs Antigen Hep Bs Ag Confirmation Hep B Core IgM Ab Hepatitis C Ab (EIA) PG Care Time/CCT Total # of Minutes Spent Total Time Spent with Patient: Total time spent is greater than 50% in coordination of care (as documented) at patient's floor/unit and/or counseling patient: Coding Level of Care Code 59549 SUB INP/OBS CARE 3/50MIN Diagnoses SHERI (acute kidney injury) N17.9 Chronic kidney disease N18.9 Hyponatremia E87.1 Acute liver failure K72.00
--- NOTE | 2023-06-24 12:15 | Gastroenterology Progress Note ---
Date of Service June 24, 2023 Assessment & Plan (1) Acute liver failure: Plan: Can continue to monitor CMP, INR, however prognosis is poor. Advise palliative care consultation. Patient's seems to be open to this conversation. Admission and Anticipated Discharge Date Admission Date: June 21, 2023 Subjective Patient is an 87 yo female with acute liver failure and SHERI. Her T bili is 8.4, Cr 2.66, INR 3.7, Na 133. MELD between 38-41 this admission. AST & ALT did rise to 2632, 1141 respectively. is at bedside and notes that they are open to discussing palliative care options. He states that he understands that her clinical picture is poor. He is focused on keeping her comfortable and having family visit her. Patient notes she is thirsty, but denies pain or other complaints at present. Review of Systems Constitutional: no fever and no chills Gastrointestinal: no abdominal pain Physical Exam Constitutional: well developed Respiratory: normal respiratory effort Gastrointestinal (Abdomen): normal bowel sounds, soft, nontender, no hepatosplenomegaly Results & Data Results & Data Vital Signs (Past 12 Hours) Vital Signs Temp Pulse Resp BP Pulse Ox O2 Del Method 06/24/23 11:00 35 C L 81 16 101/69 92 Room Air 06/24/23 08:00 Room Air 06/24/23 07:17 35.8 C L 92 H 18 89/58 L 94 Room Air 06/24/23 03:00 36.3 C L 68 20 87/64 L 92 Room Air PG Care Time/CCT Total # of Minutes Spent Total Time Spent with Patient: Total time spent is greater than 50% in coordination of care (as documented) at patient's floor/unit and/or counseling patient: Coding Level of Care Code 38454 SUB INP/OBS CARE 2/35MIN Diagnoses Acute liver failure K72.00
--- NOTE | 2023-06-24 20:32 | Billing Data ---
Date of Service June 24, 2023 Coding Level of Care Code 36379 SUB INP/OBS CARE
--- NOTE | 2023-06-25 00:42 | Communication Note ---
Date of Service: June 25, 2023 Notified by nursing of pt/families request to transition to comfort care. Discuss with family and patient at bedside. , daughter and extended famil y were all present. Everyone was in agreement to transition to comfort care. Family notes that they were waiting for granddaughter to arrive from [place] prior to giving any medications for comfort, and she has arrived this evening. Orders placed for prn Ativan/Morphine. D/c post doctoral researcher/labs.
[2023-06-25] MEDS: MoRPHine SULFATE 2 MG/ML CARP IV PRN (00:51)
[2023-06-25] MEDS ORDERED: LORazepam 0.5 MG in SYRINGE 0.25 ML IV PRN (01:18)
[2023-06-25] MEDS: LORazepam 2 MG/1 ML VIAL ONE (01:28)
--- NOTE | 2023-06-25 04:17 | Death Pronouncement Note ---
Date of Service June 25, 2023 Pronouncement Note Admission Date Admission Date: June 21, 2023 Contributing Factors (1) Acute liver failure: (2) Thrombocytopenia: (3) Acute on chronic diastolic CHF (congestive heart failure): (4) SHERI (acute kidney injury): (5) Elevated troponin: (6) Hyponatremia: (7) Altered mental status: (8) Unspecified atrial fibrillation: (9) Venous ulcers of both lower extremities: (10) Severe mitral regurgitation: Summary Additional details: I was called to pronounce the of Sandra Wilde ( 1935) by Marleni Ramos on 06/25/2023 Upon entering the room, patient was found to be in a terminal state. They were unresponsive to, and did not withdrawal from, verbal or tactile stimuli. They were unresponsive to corneal, pupillary, and oculocephalic reflexes. On cardiopulmonary exam, they were found to be without detectable carotid pulses, and without spontaneous heart tones or respirations. Time of was pronounced by me on 06/25/2023 at 0309. Attending physician was notified was notified. Family was at bedside. Signed: Candy Marie DO Additional Data Attending physician: Malik Pena DO
--- NOTE | 2023-06-25 09:18 | Discharge Summary ---
Date of Service June 25, 2023 Admission HPI Per Admitting Provider Sandra is an 87yo female with PMH of severe mitral regurgitation, CHF, COPD, and emphysema. She presented at the behest of her family for increased fatigue and jaundice x 2 weeks. Patient's only complaint at time of admission is that she is "feeling lousy". She denies all other symptoms. She does not use supplemental oxygen at home. She reports she is able to breathe fine when she lies flat on her back. She takes her weight every morning and is normally around 95 to 96 pounds; per daughter she was around 98 to 100 pounds a couple weeks ago. Patient's daughter also reports she has been eating "like a bird" r ecently. Patient denies any recent change in diet. She has not been taking Tylenol for any aches or pains. She denies any rashes on her body or tick bites. No history of alcohol use. No recent falls. Patient does not use an ambulatory assist device such as a walker or cane at home. Patient is a former tobacco cigarette smoker, but quit in 2021. She reports that she only takes Eliquis and her inhaler daily. She followed with the heart failure clinic, but was recently taken off of Lasix due to her kidney levels. Patient's daughter reports that she has been trying to keep her legs wrapped to keep swelling down, but she regularly takes them off. ED Course: NSS 1500mL IV ROS: Patient endorses feeling fatigued / lousy, increased jaundice, and swelling in the lower extremities bilaterally. Patient denies fever, chills, night-sweats, dizziness, lightheadedness, BARGER, changes in vision, chest pain, chest palpitations, SOB, cough, abdominal pain, RUQ pain, N/B/D, changes in urinary or bowel habits, dark urine, blood in the urine or stool, or numbness/tingling/pain in the legs. Admission Exam Per Admitting Provider General: no acute distress; cachectic; frail appearing; cooperative HEENT: normocephalic, atraumatic; scleral icterus; PERRLA; dry mucus membrane, and dark red bruising beneath the tongue bilaterally; vision and hearing intact Neck: supple; negative for JVP; no lymphadenopathy; trachea midline Skin: Jaundice; bruising along the arms; mottled, cold skin (cool to touch); dusky toes and fingernails CV: chest wall NTP; RRR; S1/S2 normal; no murmurs/rubs/gallops; pulses intact and symmetric at radial, DP, and PT Lungs: no acute respiratory distress; symmetrical chest wall expansion; clear breath sounds across all lung [place] w/o adventitious sounds; no wheezing ABD: Soft, NTP; BS present; no rebound/guarding; mild distention MSK: no tics or fasciculations; +1 pitting edema in the lower extremities bilaterally, with ulcers on both legs and purple purpura on the right medial ankle (see photos below) Neuro: Patient is alert and oriented to name//location/year, but not month; flat mood and affect; fluent speech; no focal deficits; sensation intact and symmetric in the LEs b/l Principal Diagnosis Liver failure Discharge Exam See Note by Dr. Candy Marie, DO Discharge Data Allergies Allergy/AdvReac Type Severity Reaction Status Date / Time No Known Allergies Allergy Verified 06/21/23 19:54 Consultations 06/21/23 20:25 ED Decision to Admit Stat 06/23/23 08:42 Consult Gastroenterology Routine Consult Nephrology Routine 06/23/23 09:07 Consult Cardiology Routine Ordered Studies 06/21/23 16:39 CT head/brain wo con Stat 06/21/23 19:05 CT abd pelvis wo con Stat 06/22/23 11:51 US RUQ [US liver] Routine Hospital Course (1) Acute liver failure: Sandra is an 87F with CKD, CHF, CAD, COPD, lung nodules, chorea, cerebrovascular disease, severe MR, and prior smoking who presented for worsening weakness and jaundice and was admitted for acute liver failure. Acute liver failure | Elevated bilirubin | Transaminitis | Thrombocytopenia - Presented with 2 weeks of worsening fatigue and jaundice in the setting of 3 years of progressively feeling more unwell - Abnormal LFTs on presentation, but significantly worsened w/o benefit from diuresis (Lasic 20 mg IV x 3 06/21) - Lactate elevated on admission, continued to rise, patient dry on exam and likely intravascularly depleted w/ third spaced edema - Studies: Tickborne panel - negative Hepatitis panel - negative Ferritin - normal CTAP - nonspecific periportal edema Liver US - trace perihepatic ascites, no hepatic masses, fundal gallbladder adenomyomatosis, no biliary ductal dilation - While history suggestive of congestive hepatopathy, echocardiogram not fully supportive of this differential Potential poor forward flow from MVP TTE- EF 55-60%, less mitral regurgitation compared to 01/2023 study - Due to worsening prognosis + multisystem organ failure and following goals of care discussion with family, pt transitioned to comfort measures on 06/24 and shortly thereafter Sepsis of unknown source - Leukocytosis > 12, Temp < 36, and tachycardia - Empiric daptomycin + cefepime started shortly after admission - Worsening lab markers including lactate of 11.1 as admission progressed CHF | Elevated BNP | Elevated troponin | Atrial fibrillation - BNP elevated to 4700 on admission, from 3207 on 06/04/23 - Troponin elevated on arrival, peaked at 54, chronically elevated - Echocardiogram w/o significant change - Pt's volume status progressed to hypovolemic/dry with notable third spacing through course of admission - Little to improvement with diuresis during stay SHERI - SHERI noted on presentation, Cr continued to rise during admission - 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 Hyponatremia - Na 129 on arrival, potential component of acute liver failure vs intravascular depletion - Discontinued home Lasix days prior to admission - S/p inpatient diuresis, Na [place] and likely d/t hemoconcentration Confusion - Noted by family to have acutely worsened over last 2 weeks - CT w/o acute findings - Ammonia level normal - Likely multifactorial given acute liver failure, SHERI, and hyponatremia (2) Thrombocytopenia: (3) Acute on chronic diastolic CHF (congestive heart failure): (4) SHERI (acute kidney injury): (5) Elevated troponin: (6) Hyponatremia: (7) Altered mental status: (8) Unspecified atrial fibrillation: (9) Venous ulcers of both lower extremities: (10) Severe mitral regurgitation: Plan Disposition: PCU DNR/DNI AHA, low-sodium diet VTE PPx: Eliquis held Total Time Total Time Spent Total Time Spent (In Minutes): 40 Discharge Plan Discharge Items Patient Disposition: Other Date/Time: 06/25/23 03:09 Supervising Physician Co-Signing Physician Notes case d/w dr ramirez, as above Resident Activity Tracking Resident Involvement: Resident Care Provided Care Provided: Adult Hospital Medicine
[2023-06-25 16:47] LABS: Babesia microti DNA Not Detected (Not Detected)
--- NOTE | 2023-06-27 11:53 | Coding Query ---
PRESENT ON ADMISSION QUERY Please place an X within the parenthesis (x). The following diagnosis(es) listed in this patient's medical record require physician assistance to determine if they were present on admission (POA) or not. Please advise for each diagnosis whether it was present on admission, not present on admission, or if it was clinically undetermined. 1.Sepsis (Documented on Discharge Summary) ( ) Present On Admission ( ) Not Present On Admission ( ) Clinically Undetermined with further review sepsis was very unlikely present at all Thank you Rishi Felix [employer] *Definition of the present on admission (POA)-Present on admission is defined as present at the time the order for inpatient admission occurs. Conditions that develop during an outpatient encounter prior to a written order for inpatient admission (including emergency department, observation, or outpatient surgery) are considered present on admission. MTDD
== END 2023-06-25 04:43 | disposition expired | DRG 441 ==
LOC: ED 15:32 → SUATTDRO 21:43 → EDINP 21:43 → 4W 22:33
DX: I25.10 Atherosclerotic heart disease of native coronary artery without angina pectoris; Z87.891 Personal history of nicotine dependence; I87.2 Venous insufficiency (chronic) (peripheral); R64 Cachexia; G93.41 Metabolic encephalopathy; I34.0 Nonrheumatic mitral (valve) insufficiency; K76.7 Hepatorenal syndrome; J43.9 Emphysema, unspecified; R74.01 Elevation of levels of liver transaminase levels; N18.32 Chronic kidney disease, stage 3b; J44.9 Chronic obstructive pulmonary disease, unspecified; I50.33 Acute on chronic diastolic (congestive) heart failure; G25.5 Other chorea; K72.00 Acute and subacute hepatic failure without coma; D69.6 Thrombocytopenia, unspecified; Z51.5 Encounter for palliative care; R91.8 Other nonspecific abnormal finding of lung field; I24.89 Other forms of acute ischemic heart disease; Z66 Do not resuscitate; A31.1 Cutaneous mycobacterial infection; E87.1 Hypo-osmolality and hyponatremia; R18.8 Other ascites; N17.9 Acute kidney failure, unspecified; Z86.16 Personal history of COVID-19; E87.20 Acidosis, unspecified; I48.91 Unspecified atrial fibrillation